=== PATIENT | female | born 1940 | race Caucasian/White ===

== ENCOUNTER → 2016-06-20 | Outpatient (CLI) | payer BC ==
[~2016-06-20] MED LIST: AMLO-110 PO; ASPI81TA28 PO; ATEN-173 PO; CHOL20007 PO; CHOLESTEROL; CHRO200T3 PO; CYAN500T PO; DOCU100C31 PO; LEVO100T7 PO; LISI-794 PO; LUTE20TA PO; NICO14DI9 TOP; OMEG10007 PO; POTA99TA PO; SIMV10TA2 PO; SYNUNK; TNRUNK; [UNRECOGNIZED DRUG - CODE] PO
--- NOTE | 2016-06-20 14:21 | EXERCISE STRESS ECHO ---
*NOTICE TO RECEIVING CONSTITUTION PARTY AGENCY This information is strictly Confidential and protected under [place] law. [place] law prohibits you from making any further disclosure of this information unless further disclosure is expressly permitted by the written consent of the person to whom it pertains or is authorized by law. A general authorization for the release of medical or other information is not sufficient for this purpose. Hospital accepts no responsibility if the information is made available to any other person, INCLUDING THE PATIENT. Interpretation Summary * Name: ARNULFO FERRARA Study Date: 06/20/2016 10:11 AM BP: 186/89 mmHg * Patient Location: [facility], [place] HR: 51 * : 1940 (M/d/yyyy) Gender: Female Height: 68 in * Age: 76 yrs Ethnicity: [place] Weight: 165 lb * Ordering Physician: Breezy Rich * Referring Physician: Breezy Rich * Performed By: Gisell Crawford RCS * * Reason For Study: Chest Pain * BSA: 1.9 m2 * The ECG ST depressions post exercise are diagnostic of ischemia. * No segmental walll motion abnormalities post stress. No significant change in overall LV systolic function post exercise comapared to rest. * The echo portion of the test is non diagnostic for ischemia because of failure to attain adequate heart rate. * Normal resting biventricular systolic function. * MiId mitral and tricuspid regurgitation. * Mild concentric left ventricular hypertrophy. * Mildly elevated estimated RV systolic pressure. * Normal respiratory variation in IVC diameter consistent with normal central venous pressure. * Could consider dobutamine stress echo or Lexiscan stress nuclear study to further evaluate for myocardial ischemia. * Suboptimal stress test due to inadequate maximum heart rate. * -- Conclusions -- * Aortic valve sclerosis mild, without significant aortic valvular stenosis. Procedure Details * ECHOEX, CPT #[id number] * ECHO COLOR FLOW, CPT #[id number] * ECHO DOPPLER, CPT #[id number] Left Ventricle * The left ventricle is normal in size. * There is mild concentric left ventricular hypertrophy. * Ejection Fraction = 65-70%. * The left ventricular wall motion is normal at rest. * No regional wall motion abnormalities noted. * Following exercise to 78% MPHR the LV wall motion remained normal. There was no significant increase in the LV ejection fraction post exercise. Atria * The left atrial size is normal. * Right atrial size is normal. Mitral Valve * The mitral valve is normal. * There is no mitral valve stenosis. * There is mild mitral regurgitation. Tricuspid Valve * The tricuspid valve is not well visualized, but is grossly normal. * There is no tricuspid stenosis. * There is mild tricuspid regurgitation. * Right ventricular systolic pressure is elevated at 40-50mmHg. Aortic Valve * The aortic valve is trileaflet. * The aortic valve opens well. * Aortic valve sclerosis mild, without significant aortic valvular stenosis. * Aortic stenosis is absent. * No aortic regurgitation is present. Pulmonic Valve * The pulmonic valve is not well seen, but is grossly normal. * There is no pulmonic valvular regurgitation. Great Vessels * The aortic root is normal size. Pericardium * There is no pericardial effusion. Stress Parameters * Baseline ECG with sinus bradycardia, biphasic to shallow T wave inversions inferolaterally. * 2-[address] depression in the inferior leads. 1-[address] depression V5,V6. * Rest heart rate was '51' BPM. * Rest blood pressure was '186/89' * Maximum heart rate achieved was 114 bpm. * Maximum heart rate was 78 % of maximum age-predicted heart rate. * Maximum blood pressure was '212/80' * Total exercise time was '5:59' * Maximum exercise MET level achieved was '7.' METS * Maximum treadmill speed was '2.5' miles per hour. * Maximum treadmill elevation was '12'% grade. * Exercise was terminated due to 'fatigue' * No chest pain. MMode 2D Measurements and Calculations IVSd 1.2 cm IVSs 1.5 cm LVIDd 4.6 cm LVIDs 2.8 cm LVPWd 1.2 cm LVPWs 1.5 cm IVS/LVPW 0.98 FS 38.7 % EDV(Teich) 95.4 ml ESV(Teich) 29.5 ml EF(Teich) 69.1 % EDV(cubed) 94.9 ml ESV(cubed) 21.9 ml EF(cubed) 76.9 % % IVS thick 27.1 % % LVPW thick 29.8 % LV mass(C)d 195.5 grams LV mass(C)dI 103.8 grams/m\S\2 LV mass(C)s 145.4 grams LV mass(C)sI 77.2 grams/m\S\2 CO(Teich) 3.4 l/min CI(Teich) 1.8 l/min/m\S\2 SV(Teich) 65.9 ml SI(Teich) 35.0 ml/m\S\2 CO(cubed) 3.8 l/min CI(cubed) 2.0 l/min/m\S\2 SV(cubed) 73.0 ml SI(cubed) 38.8 ml/m\S\2 Ao root diam 3.2 cm Ao root area 7.8 cm\S\2 ACS 1.7 cm LA dimension 3.7 cm LA/Ao 1.2 LVAd ap4 26.9 cm\S\2 LVLd ap4 7.2 cm EDV(MOD-sp4) 83.0 ml LVAs ap4 10.8 cm\S\2 LVLs ap4 5.4 cm ESV(MOD-sp4) 19.0 ml EF(MOD-sp4) 77.1 % LVAd ap2 30.7 cm\S\2 LVLd ap2 8.7 cm EDV(MOD-sp2) 93.0 ml LVAs ap2 15.3 cm\S\2 LVLs ap2 6.6 cm ESV(MOD-sp2) 32.0 ml EF(MOD-sp2) 65.6 % CO(MOD-sp4) 3.3 l/min CI(MOD-sp4) 1.8 l/min/m\S\2 SV(MOD-sp4) 64.0 ml SI(MOD-sp4) 34.0 ml/m\S\2 CO(MOD-sp2) 3.2 l/min CI(MOD-sp2) 1.7 l/min/m\S\2 SV(MOD-sp2) 61.0 ml SI(MOD-sp2) 32.4 ml/m\S\2 Doppler Measurements and Calculations MV E max anahy 85.2 cm/sec MV A max anahy 63.2 cm/sec MV E/A 1.3 MV P1/2t max anahy 98.0 cm/sec MV P1/2t 70.1 msec MVA(P1/2t) 3.1 cm\S\2 MV dec slope 409.1 cm/sec\S\2 MV dec time 0.23 sec Ao V2 max 145.4 cm/sec Ao max PG 8.5 mmHg Ao max PG (full) 4.8 mmHg LV V1 max PG 3.6 mmHg LV V1 max 95.2 cm/sec PA V2 max 84.3 cm/sec PA max PG 2.8 mmHg PI max anahy 146.8 cm/sec PI max PG 8.6 mmHg PI dec slope 44.7 cm/sec\S\2 PI P1/2t 962.9 msec TR max anahy 338.0 cm/sec
== END | disposition home or self-care (01) ==
LOC: C.CPL 09:21
PROVIDERS: ATTEND Internal Medicine Critical Care Medicine
DX: R07.9 Chest pain, unspecified (principal); I35.8 Other nonrheumatic aortic valve disorders

== ENCOUNTER → 2016-07-17 | Outpatient (CLI) | payer BC ==
[~2016-07-17] MED LIST changes: -AMLO-110 PO; -ASPI81TA28 PO; -ATEN-173 PO; +ATROPINE SULFATE 0.1 MG/ML 5ML SYR ONE; -CHOL20007 PO; -CHRO200T3 PO; -CYAN500T PO; +DOBUTamine HCL 12.5 MG/ML 20 ML VIAL ONE; -DOCU100C31 PO; -LEVO100T7 PO; -LISI-794 PO; -LUTE20TA PO; +METOPROLOL TARTRATE 1 MG/ML VIAL ONE; -NICO14DI9 TOP; -OMEG10007 PO; +PERFLUTREN LIPID MICROSPHERE (DEFINITY) IV ONE; -POTA99TA PO; -SIMV10TA2 PO
--- NOTE | 2016-07-17 18:06 | DOBUTAMINE ECHO ---
*NOTICE TO RECEIVING GREEN PARTY AGENCY This information is strictly Confidential and protected under [place] law. [place] law prohibits you from making any further disclosure of this information unless further disclosure is expressly permitted by the written consent of the person to whom it pertains or is authorized by law. A general authorization for the release of medical or other information is not sufficient for this purpose. Hospital accepts no responsibility if the information is made available to any other person, INCLUDING THE PATIENT. Interpretation Summary * Name: ARNULFO FERRARA Study Date: 07/17/2016 10:00 AM BP: 156/77 mmHg * Patient Location: [facility] HR: 56 * : 1940 (M/d/yyyy) Gender: Female Height: 66 in * Age: 76 yrs Ethnicity: [place] Weight: 148 lb * Ordering Physician: Breezy Rich * Referring: Physician: Breezy Rich * Performed By: Kelly Aguilar * * Reason For Study: CHEST PAIN * BSA: 1.8 m2 * -- Conclusions -- * 1. Negative dobutamine stress echo for ischemia at 93% MPHR. * 2. Negative dobutamine stress ECG for ischemia. * 3. Normal resting LV size and function. Mild concentric LVH. For full details of resting function see echo report from 06/20/2016 Procedure Details * A contrast injection of Definity was performed to improve assessment of LV function. * Contrast was injected into an intravenous site in the right arm. * One vial of Definity ultrasound contrast was diluted in normal saline to a total volume of 10 ml. A total of '5' ml of solution was administered during imaging. * Lot # [id number] of Definity utilized for procedure. * Expiration date 05/17. * The attending nurse who injected the contrast agent was FERN HANKINS RN. Left Ventricular Findings with Stress * This was essentially a normal study. Left Ventricle * The left ventricle is grossly normal size. * There is mild concentric left ventricular hypertrophy. * Ejection Fraction = 60-65%. * The left ventricular ejection fraction increases normally with stress. The left ventricular end-systolic cavity size reduces post-stress (normal response). The left ventricular wall motion with stress is normal. * The left ventricular wall motion is normal at rest. * No regional wall motion abnormalities noted. Stress Parameters * Normal baseline electrocardiogram. * Stress ECG: No ST changes. No arrhythmias. * No arrhythmia were noted with stress. * Rest heart rate was '56' BPM. * Rest blood pressure was '156/77' * Maximum heart rate achieved was 136 bpm. * Maximum heart rate was 93 % of maximum age-predicted heart rate. * Maximum blood pressure was '195/63' * Total exercise time was '12:00' * Maximum Dobutamine infusion rate was '40' mcg/kg/min. * A total of 0.25 mg of intravenous Atropine was used to supplement Dobutamine for heart rate response. * Dobutamine infusion was terminated due to achieving target heart rate * A total of 5 mg of IV Metoprolol was administered to reverse Dobutamine-induced tachycardia. * The patient did not exhibit any symptoms during drug infusion. * Normal blood pressure response to exercise. Left Ventricular Findings with Stress * The study was diagnostic quality.
--- NOTE | 2016-07-23 12:40 | CODING QUERY MEDICAL NECESSITY ---
SUPPORTING DIAGNOSIS NEEDED A supporting diagnosis is required for the test/procedure performed on this patient in order for us to be reimbursed by the patient's insurance. Please provide a supporting diagnosis for the following test/procedure listed below next to the test name along with your signature. *If there is no additional diagnosis for this patient that would support the following test/procedure please document that below next to the test/procedure. Test(s)/Procedure(s) that require a supporting diagnosis: * STRESS ECHO DIAGNOSIS: * DOS: 07/17/16 Provider Signature: Date: Thank you Sonia Munguia Health Information Management Once completed, please kindly fax back to [phone] For questions please call [phone]
== END | disposition home or self-care (01) ==
LOC: C.CPL 09:28
PROVIDERS: ATTEND Internal Medicine Critical Care Medicine
DX: R07.89 Other chest pain (principal)

== ENCOUNTER → 2016-11-07 | Outpatient (CLI) | payer BC ==
[~2016-11-07] MED LIST changes: -ATROPINE SULFATE 0.1 MG/ML 5ML SYR ONE; -DOBUTamine HCL 12.5 MG/ML 20 ML VIAL ONE; -METOPROLOL TARTRATE 1 MG/ML VIAL ONE; -PERFLUTREN LIPID MICROSPHERE (DEFINITY) IV ONE
--- NOTE | 2016-11-07 12:46 | DIAGNOSTIC IMAGING REPORT ---
BILATERAL CAROTID DOPPLER STUDY HISTORY: Atherosclerotic narrowing I65.29 Occlusion and stenosis of carotid artery COMPARISON: 10/19/2015 TECHNIQUE: Real-time, grayscale, and color Doppler sonography of the carotid arteries was performed. Imaging reviewed in the transverse and longitudinal planes. All measurements were calculated based on NASCET criteria. FINDINGS: Antegrade flow is seen in the bilateral vertebral arteries. The brachial pressures are hemodynamically similar. Significant plaque formation bilaterally The peak systolic velocity within the right ICA is 56. The right systolic ratio is not obtainable The peak systolic velocity within the left ICA is 121. The left systolic ratio is not obtainable IMPRESSION: 30-40% narrowing left internal carotid artery. Moderate improvement compared to the prior exam. No significant right carotid stenosis Electronically signed by: Priyank William M.D. 11/07/2016 12:44 PM Dictated Date/Time: 11/07/2016 12:41 PM
== END | disposition home or self-care (01) ==
LOC: C.ULTR 12:03
PROVIDERS: ATTEND Surgery
DX: I65.22 Occlusion and stenosis of left carotid artery (principal)

== ENCOUNTER → 2016-11-23 | Outpatient (CLI) | payer BC ==
[2016-11-23 09:18] LABS: BASO % 0.4 %; BASO ABS # 0.03 K/uL (0-0.2); COMPLETE YES; EOS % 2.4 %; HEMATOCRIT 42.1 % (37-47); IG% 0.1 %; LYMPH % 23.3 %; LYMPH ABS # 1.66 K/uL (1.2-3.4); MEAN CELL VOLUME 93.3 fL (80-100); MEAN CORPUSCULAR HEMOGLOBIN 32.2 pg (25-34); MEAN CORPUSCULAR HGB CONC 34.4 g/dl (32-36); MEAN PLATELET VOLUME 11.1 fL (7.4-10.4); MONO % 6.6 %; NEUT % 67.2 %; PLATELET COUNT 253 K/uL (130-400); RED BLOOD COUNT 4.51 M/uL (4.2-5.4); WHITE BLOOD COUNT 7.11 K/uL (4.8-10.8)
[2016-11-23 09:27] LABS: ALT/SGPT 17 U/L (12-78); BLOOD UREA NITROGEN 15 mg/dl (7-18); BUN/CREATININE RATIO 17.5 (10-20); CARBON DIOXIDE 26 mmol/L (21-32); CHLORIDE 111 mmol/L (98-107); CREATININE 0.87 mg/dl (0.60-1.20); GLUCOSE 113 mg/dl (70-99); POTASSIUM 3.6 mmol/L (3.5-5.1); SODIUM 144 mmol/L (136-145)
[2016-11-23 09:38] LABS: ALB/GLOB RATIO 0.9 (0.9-2); ALKALINE PHOSPHATASE 72 U/L (45-117); AST/SGOT 14 U/L (15-37)
== END | disposition home or self-care (01) ==
LOC: C.LABVPSUW 09:08
PROVIDERS: ATTEND Internal Medicine Critical Care Medicine
DX: R53.83 Other fatigue (principal); E03.9 Hypothyroidism, unspecified; I10 Essential (primary) hypertension

== ENCOUNTER → 2017-06-27 | Day surgery (SDC) | payer BC ==
[2017-06-20 13:50] VITALS: Ht 172.7 cm; Wt 76.0 kg
--- NOTE | 2017-06-26 09:31 | History and Physical: Surg Cnt ---
History & Physical Date Jun 26, 2017. Chief Complaint hoarseness History of Present Illness The patient is a 77 year old female with complaints of left false vocal cord polyp Additional History Hepatic Disease: No Endocrine Disorder: No Kidney Disease: No Hypertension: No Heart Disease: No Bleeding Tendencies: No Infectious Diseases: No Allergies Coded Allergies: Hydrochlorothiazide (Verified Allergy, Unknown, RASH, 06/20/17) Nickel (Verified Allergy, Unknown, ITCHING AND REDNESS TO SKIN, 06/20/17) Penicillins (Verified Allergy, Unknown, YEAST INFECTION, 06/20/17) Home Medications Scheduled Amlodipine (Norvasc), 5 MG PO QAM Aspirin (Aspirin Ec), 81 MG PO QAM Atenolol (Tenormin), 2 TABS PO QAM Cholecalciferol (Vitamin D3), 1 TAB PO QAM Chromium (Chromium), 1 TAB PO DAILY Cyanocobalamin (Vitamin B-12), 500 MCG PO DAILY Docusate Sodium (Docusate Sodium), 2 CAP PO QPM Fish Oil ([place]-3), 1 CAP PO DAILY Levothyroxine Sodium (Levothyroxine Sodium), 1 TAB PO QAM Lisinopril (Zestril), 40 MG PO QAM Lutein (Lutein), 1 TAB PO DAILY Nicotine (Nicotine), 1 PATCH TOP DAILY Potassium (Potassium), 1 TAB PO DAILY Simvastatin (Zocor), 10 MG PO QAM Physical Examination Skin: warm/dry, no rash Eyes: normal inspection, EOMI, sclerae normal ENT: normal ENT inspection, pharynx normal Head: normocephalic, atraumatic Neck: supple, no adenopathy, trachea midline Respiratory/Chest: lungs clear, normal breath sounds, no respiratory distress Cardiovascular: regular rate, rhythm, no edema, no murmur Abdomen / GI: normal bowel sounds, non tender Back: normal inspection Extremities: normal inspection, normal range of motion Neurologic/Psych: no motor/sensory deficits, alert, normal reflexes, oriented x 3 Diagnosis left false vocal cord polyp Plan of Treatment direct laryngoscopy, micro excision left false vocal cord polyp
[~2017-06-27] VITALS: Ht 172.7 cm; Wt 76.0 kg
[~2017-06-27] MED LIST changes: +AMLO-110 PO; +ASPI81TA28 PO; +ATEN-173 PO; +ATROPINE SULFATE 0.1 MG/ML 5ML SYR IV PRN; +CHOL20007 PO; -CHOLESTEROL; +CHRO200T3 PO; +CYAN500T PO; +DOCU100C31 PO; +EpHEDrine SULFATE INJ 50 MG/ML AMP IV PRN; +EpINEphrine HCL INJ 1 MG/ML 5ML SYRINGE ONE; +FENTANYL CITRATE INJ 50 MCG/1 ML 2 ML VIAL IV PRN; +FENTANYL CITRATE INJ 50 MCG/1 ML 2 ML VIAL ONE; +LEVO100T7 PO; +LIDOCAINE HCL 2% 2 ML VIAL (20MG/ML) ONE; +LISI-794 PO; +LUTE20TA PO; +MIDAZOLAM HCL 1 MG/ML 2ML VIAL ONE; +NICO14DI9 TOP; +OMEG10007 PO; +ONDANSETRON INJ 2 MG/ML 2 ML VIAL IV PRN; +ONDANSETRON INJ 2 MG/ML 2 ML VIAL ONE; +OXYCODONE/ACETAMINOPHEN 5-325 TAB PO PRN; +POTA99TA PO; +PROPOFOL IV EMULSION 10 MG/ML 20 ML VIAL IV ONE; +SIMV10TA2 PO; +SODIUM CHLORIDE 0.9% 1000ML 1,000 ML IV SCH; +SUCCINYLCHOLINE CHLORIDE 20 MG/ML 10 ML VIAL IV ONE; -SYNUNK; -TNRUNK; -[UNRECOGNIZED DRUG - CODE] PO
--- NOTE | 2017-06-27 06:53 | History & Physical Bridge Note ---
H&P Re-Evaluation Bridge Note: I have examined the patient, reviewed the History & Physical and in the interval since the performance of the History & Physical I have noted the following changes of clinical significance: No changes noted
[2017-06-27] MEDS: LACTATED RINGER'S 1000ML 1,000 ML IV SCH ×2 (08:23→11:16)
--- NOTE | 2017-06-27 10:00 | Discharge Instructions-SurgCtr ---
Discharge Instructions Date of Service Jun 27, 2017. Visit Reason for Visit: Left False Vocal Cord Polyp Discharge Discharge Diagnosis / Problem: same Discharge Goals Goal(s): Diagnostic testing Medications Stopped Medications Name(s): Pt. was told not to take Lisinopril this a.m.. Activity Recommendations Activity Limitations: resume your previous activity Anesthesia . Post Anesthesia Instructions: If you have had General Anesthesia or IV Sedation: * Do not drive today. * Resume driving when surgeon permits. * Do not make important decisions or sign legal documents today. * Call surgeon for: 1. Temperature elevations greater than 101 degrees F. 2. Uncontrollable pain. 3. Excessive bleeding. 4. Persistent nausea and vomiting. 5. Medication intolerance (nausea, vomiting or rash). * For nausea and vomiting use only clear liquids such as: tea, soda, bouillon until nausea subsides, then gradually increase diet as tolerated. * If you have any concerns or questions, call your surgeon's office. If physician is unavailable and it is an emergency, call 911 or go to the nearest emergency room. . Instructions / Follow-Up Instructions / Follow-Up rest voice for one week, no loud talking or shouting Diet Recommendations Home Diet: no limitations Procedures Procedures Performed: Direct Laryngoscopy, Micro Excision Left False Vocal Cord Polyp Pending Studies Studies pending at discharge: no Medical Emergencies . Who to Call and When: Medical Emergencies: If at any time you feel your situation is an emergency, please call 911 immediately. . Non-Emergent Contact Non-Emergency issues call your: Primary Care Provider . . "Provider Documentation" section prepared by Rosa Lorenz. Phyllis PA Drug Monitoring Program Search Results: no issues identified
--- NOTE | 2017-06-27 11:27 | Anesthesia Progress Nt - [facility] ---
Anesthesia Post Op Note Date & Time Jun 27, 2017 at 11:27 Vital Signs Pain Intensity: 3 Vital Signs Past 12 Hours Date Time Temp Pulse Resp B/P (MAP) Pulse Ox O2 Delivery O2 Flow Rate FiO2 06/27/17 11:17 49 10 96 06/27/17 11:17 50 10 06/27/17 11:16 51 9 93 06/27/17 11:16 51 9 06/27/17 11:15 144/64 06/27/17 11:15 37.0 49 12 144/64 96 Room Air 06/27/17 11:11 52 12 149/61 96 06/27/17 11:11 53 12 06/27/17 11:06 49 11 06/27/17 11:06 48 11 96 06/27/17 11:05 151/67 06/27/17 11:01 56 13 95 06/27/17 11:01 55 13 06/27/17 11:00 159/67 06/27/17 10:56 49 11 06/27/17 10:56 48 11 161/78 98 06/27/17 10:51 50 15 98 06/27/17 10:51 49 15 06/27/17 10:50 158/69 06/27/17 10:46 51 9 96 06/27/17 10:46 50 9 06/27/17 10:45 149/64 06/27/17 10:44 49 10 06/27/17 10:44 50 10 97 06/27/17 10:40 146/66 06/27/17 10:39 49 10 06/27/17 10:39 50 10 100 06/27/17 10:35 156/67 06/27/17 10:34 52 10 06/27/17 10:34 51 10 100 06/27/17 10:30 137/63 06/27/17 10:29 50 10 06/27/17 10:29 50 10 99 06/27/17 10:25 139/61 06/27/17 10:24 54 10 99 06/27/17 10:24 54 10 06/27/17 10:20 153/72 06/27/17 10:19 58 11 06/27/17 10:19 59 11 99 06/27/17 10:15 154/74 06/27/17 10:14 60 162/72 97 06/27/17 10:14 36.4 59 12 162/72 99 Room Air 06/27/17 10:14 60 06/27/17 07:48 36.5 46 16 146/82 (103) 96 Room Air Notes Mental Status: alert / awake / arousable, participated in evaluation Pt Amnestic to Procedure: Yes Nausea / Vomiting: adequately controlled Pain: adequately controlled Airway Patency, RR, SpO2: stable & adequate BP & HR: stable & adequate Hydration State: stable & adequate Anesthetic Complications: no major complications apparent
--- NOTE | 2017-06-27 11:52 | [facility] Post Operative Brief Note ---
Immediate Operative Summary Operative Date Jun 27, 2017. Pre-Operative Diagnosis Left False Vocal Cord Polyp Post-Operative Diagnosis Same Procedure(s) Performed Direct Laryngoscopy, Micro Excision Left False Vocal Cord Polyp Surgeon Dr. Lorenz Hearing Aid Repair Technician Surgeon(s) None Estimated Blood Loss 3 ml Findings Polyps left vocal cord and cyst left arytenoid Specimens A. Left vocal cord polyp B. Left false vocal cord cyst Anesthesia Gen. endotracheal Complication(s) None Disposition Recovery Room / PACU
--- NOTE | 2017-06-27 11:55 | [facility] Operative Report ---
Operative Report Operative Date Jun 27, 2017. Pre-Operative Diagnosis Left False Vocal Cord Polyp Post-Operative Diagnosis Same Procedure(s) Performed Direct Laryngoscopy, Micro Excision Left False Vocal Cord Polyp Surgeon Dr. Lorenz Public Health Epidemiologist Surgeon(s) None Estimated Blood Loss 3 ml Findings As noted below in pathology specimens Specimens A. Left vocal cord polyp B. Left false vocal cord cyst Complication(s) None Disposition Recovery Room / PACU Indications 77-year-old lady with persistent hoarseness informed body sensation in the throat Description of Procedure The patient was brought to the operating room and placed in the supine position. General endotracheal anesthesia was induced. The Dedo laryngoscope was used to visualize the larynx. The epiglottis was sharp the vallecula and piriform sinus areas were normal. Endolarynx was inspected suspension and microlaryngoscopy was performed. There was polyp formation of the left false vocal cord in the ventricle just above the true vocal cord. This was excised using the up-biting cup forceps and up-biting scissors. There was also a right millimeters cyst above the false vocal cord at the left arytenoid area. This was excised using the straight cup forceps and the straight and up-biting scissors. Milky fluid was expressed. Both specimens were sent for pathology. Hemostasis was obtained using cottonoids pledgets with topical epinephrine. The patient tolerated procedure well and was taken to the recovery area in satisfactory condition. I attest to the content of the Intraoperative Record and any orders documented therein. Any exceptions are noted below.
[2017-06-27 12:03] VITALS: BP 153/75; PULSE 53; O2SAT 95
== END | disposition home or self-care (01) ==
LOC: X.SURG 07:22
PROVIDERS: ATTEND Otolaryngology
DX: J38.1 Polyp of vocal cord and larynx (principal); J38.3 Other diseases of vocal cords; I10 Essential (primary) hypertension; E78.5 Hyperlipidemia, unspecified; J44.9 Chronic obstructive pulmonary disease, unspecified; I49.9 Cardiac arrhythmia, unspecified; E03.8 Other specified hypothyroidism; Z87.891 Personal history of nicotine dependence; Z79.82 Long term (current) use of aspirin; Z79.899 Other long term (current) drug therapy

== ENCOUNTER → 2017-07-08 | Outpatient (CLI) | payer BC ==
[~2017-07-08] MED LIST changes: -ATROPINE SULFATE 0.1 MG/ML 5ML SYR IV PRN; -EpHEDrine SULFATE INJ 50 MG/ML AMP IV PRN; -EpINEphrine HCL INJ 1 MG/ML 5ML SYRINGE ONE; -FENTANYL CITRATE INJ 50 MCG/1 ML 2 ML VIAL IV PRN; -FENTANYL CITRATE INJ 50 MCG/1 ML 2 ML VIAL ONE; -LIDOCAINE HCL 2% 2 ML VIAL (20MG/ML) ONE; -MIDAZOLAM HCL 1 MG/ML 2ML VIAL ONE; -ONDANSETRON INJ 2 MG/ML 2 ML VIAL IV PRN; -ONDANSETRON INJ 2 MG/ML 2 ML VIAL ONE; -OXYCODONE/ACETAMINOPHEN 5-325 TAB PO PRN; -PROPOFOL IV EMULSION 10 MG/ML 20 ML VIAL IV ONE; -SODIUM CHLORIDE 0.9% 1000ML 1,000 ML IV SCH; -SUCCINYLCHOLINE CHLORIDE 20 MG/ML 10 ML VIAL IV ONE
== END | disposition home or self-care (01) ==
LOC: C.LABVPSUW 09:16
PROVIDERS: ATTEND Internal Medicine Critical Care Medicine
DX: E03.9 Hypothyroidism, unspecified (principal)

== ENCOUNTER → 2017-11-07 | Outpatient (CLI) | payer BC ==
[2017-11-07 10:22] LABS: BASO % 0.5 %; BASO ABS # 0.03 K/uL (0-0.2); EOS ABS # 0.12 K/uL (0-0.5); HEMATOCRIT 41.9 % (37-47); HEMOGLOBIN 14.5 g/dL (12.0-16.0); IG# 0.01 K/uL (0.00-0.02); LYMPH ABS # 1.53 K/uL (1.2-3.4); MEAN CELL VOLUME 91.7 fL (80-100); MEAN CORPUSCULAR HEMOGLOBIN 31.7 pg (25-34); MEAN CORPUSCULAR HGB CONC 34.6 g/dl (32-36); MONO % 5.4 %; MONO ABS # 0.33 K/uL (0.11-0.59); NEUT % 66.9 %; NEUT ABS # 4.11 K/uL (1.4-6.5); PLATELET COUNT 229 K/uL (130-400); RED CELL DISTRIBUTION WIDTH CV 13.8 % (11.5-14.5); RED CELL DISTRIBUTION WIDTH SD 45.5 fL (36.4-46.3); WHITE BLOOD COUNT 6.13 K/uL (4.8-10.8)
[2017-11-07 10:57] LABS: ALBUMIN 3.6 gm/dl (3.4-5.0); ALKALINE PHOSPHATASE 81 U/L (45-117); ALT/SGPT 27 U/L (12-78); AST/SGOT 20 U/L (15-37); BLOOD UREA NITROGEN 20 mg/dl (7-18); CALCIUM 8.4 mg/dl (8.5-10.1); CARBON DIOXIDE 20 mmol/L (21-32); CREATININE 0.99 mg/dl (0.60-1.20); GLUCOSE 115 mg/dl (70-99); POTASSIUM 3.9 mmol/L (3.5-5.1); SODIUM 141 mmol/L (136-145); TOTAL PROTEIN 7.4 gm/dl (6.4-8.2)
== END | disposition home or self-care (01) ==
LOC: C.LABVPSUW 09:48
PROVIDERS: ATTEND Internal Medicine Critical Care Medicine
DX: R10.9 Unspecified abdominal pain (principal); E03.9 Hypothyroidism, unspecified; D64.9 Anemia, unspecified

== ENCOUNTER 2020-05-13 18:02 | Inpatient (IN) ==
[2020-05-13] MEDS ORDERED: ASPIRIN CHEW 324 MG PO STA (18:21)
[2020-05-13] MEDS ORDERED: NITROGLYCERIN 2% OINTMENT 30GM TUBE EXT STA (18:21)
--- NOTE | 2020-05-13 18:41 | XRay Report ---
SINGLE VIEW CHEST CLINICAL HISTORY: Atypical chest pain. FINDINGS: An AP, portable, upright chest radiograph is compared to study dated 10/05/2018. Correlation is made with chest CT dated 12/17/2017. The examination is degraded by portable technique and apical l ordotic positioning. The heart is mildly enlarged. The pulmonary vasculature is noncongested. There i s elevation of the right hemidiaphragm and bibasilar atelectasis. Emphysema and chronic interstitial thickening is similar to previous. No airspace consolidation or large pleural effusion is identified. No pneumothorax is seen. The skeletal structures are osteopenic. The bony thorax is grossly intact. IMPRESSION: Mild cardiac enlargement and emphysema with no acute cardiopulmonary abnormality. ACT 112: Negative or not required by law. Electronically signed by: Dejuan Cannon M.D. 05/13/2020 6:40 PM
[2020-05-13 19:17] LABS: Partial Thromboplastin Ratio 0.9; Partial Thromboplastin Time 23.8 Seconds (21.0-31.0); Prothrombin Time 10.6 Seconds (9.0-12.0)
[2020-05-13 19:19] LABS: Basophils # (auto) 0.02 K/uL (0-0.2); Basophils % (auto) 0.2 %; Eosinophils # (auto) 0.09 K/uL (0-0.5); Hematocrit (blood only) 43.8 % (37-47); Hemoglobin 14.2 g/dL (12.0-16.0); Immature Granulocytes # (auto) 0.01 K/uL (0.00-0.02); Immature Granulocytes % (auto) 0.1 %; Lymphocytes # (auto) 1.67 K/uL (1.2-3.4); Lymphocytes % (auto) 19.4 %; Mean Corpuscular Hemoglobin 29.8 pg (25-34); Mean Corpuscular Hgb Conc 32.4 g/dL (32-36); Mean Corpuscular Volume 91.8 fL (80-100); Mean Platelet Volume 11.8 fL (7.4-10.4); Monocytes # (auto) 0.45 K/uL (0.11-0.59); Monocytes % (auto) 5.2 %; Neutrophils # (auto) 6.35 K/uL (1.4-6.5); Neutrophils % (auto) 74.1 %; Platelet Count 269 K/uL (130-400); RDW Coefficient of Variation 14.4 % (11.5-14.5); RDW Standard Deviation 48.9 fL (36.4-46.3); Red Blood Count 4.77 M/uL (4.2-5.4); White Blood Count 8.59 K/uL (4.8-10.8)
[2020-05-13 19:26] LABS: Albumin Level 3.6 gm/dl (3.4-5.0); BUN Creatinine Ratio 20.6 (10-20); Calcium 8.7 mg/dl (8.5-10.1); Creatinine Clr Calc Pharmacy 42.6 ml/min; Est GFR (African American) 49.3; Est GFR (Non-African American) 42.5; Potassium 3.5 mmol/L (3.5-5.1)
[2020-05-13 19:35] LABS: Albumin Globulin Ratio 0.9 (0.9-2); Bilirubin,Total 0.2 mg/dl (0.2-1); Globulin 3.8 gm/dl (2.5-4.0); Total Protein 7.4 gm/dl (6.4-8.2); Troponin I 0.36 ng/ml (0-0.045)
[2020-05-13] MEDS ORDERED: Heparin IV Low Dose WITH Bolus IV STA (19:36)
[2020-05-13] MEDS ORDERED: HEPARIN SODIUM/DEXTROSE 25,000 UNITS/500 ML BAG IV SCH (19:45)
[2020-05-13] MEDS ORDERED: HEPARIN SOD (PORCINE) 1000 UNIT/ML 10 ML VIAL ONE (20:04)
[2020-05-13] MEDS ORDERED: NITROGLYCERIN 2% OINTMENT 30GM TUBE ONE (21:10)
[2020-05-13] MEDS ORDERED: ONDANSETRON INJ 2 MG/ML 2 ML VIAL IV PRN (21:53)
[2020-05-13] MEDS: ACETAMINOPHEN 325 MG TAB PO PRN (23:03)
[2020-05-13] MEDS: ATENOLOL 25 MG TABLET PO SCH (23:04)
[2020-05-13] MEDS: DOCUSATE SODIUM 100 MG CAP PO SCH (23:04)
--- NOTE | 2020-05-14 00:23 | History & Physical Report ---
Date of Service May 13, 2020 Assessment & Plan (1) Non-STEMI (non-ST elevated myocardial infarction): Non-STEMI/hypertension- The patient will be admitted to telemetry for serial cardiac enzymes, serial EKG's, cardiac rhythm monitoring and a 2-D echocardiogram with Dopplers. Troponin 0.360 upon admission. Continue heparin drip low-dose with bolus begun in ED. Increase Nitropaste from 1/2 to 1 inch to anterior chest wall every 6 hours Aspirin 81 mg daily Continue amlodipine, atenolol and losartan Consult cardiology Present on Admission?: Yes (2) HTN (hypertension): See above Present on Admission?: Yes (3) Hypothyroidism: Continue levothyroxine 125 mcg daily Present on Admission?: Yes (4) GERD (gastroesophageal reflux disease): Continue pantoprazole 40 mg daily Present on Admission?: Yes History of Present Illness Chief Complaint: The patient presents to the emergency department with an intermittent harsh, nonproductive cough over the past week, and today developed severe substernal chest discomfort. Primary Care Provider: Breezy Rich MD The patient is a 80-year-old female with a past medical history including lumbar stenosis with neurogenic claudication, hypertension, B12 deficiency, constipation, peripheral neuropathy, hypothyroidism, GERD and arthritis. In the emergency department she had a COVID-19 test which was negative, and chest x-ray consistent with COPD. She did have an EKG which showed ST/T wave changes in the lateral chest leads and limb leads. Her troponin was elevated at 0.360. In the emergency department she was started on a heparin drip low-dose with bolus, Nitropaste 1/2 inch to the anterior chest wall, and was given aspirin 324 mg. Allergies Allergy/AdvReac Type Severity Reaction Status Date / Time hydrochlorothiazide Allergy Mild RASH Verified 05/13/20 20:20 nickel Allergy Mild ITCHING Verified 05/13/20 20:21 AND REDNESS TO SKIN Penicillins Allergy Mild YEAST Verified 05/13/20 20:21 INFECTION Home Medications Medication Instructions Recorded Confirmed Type amlodipine 5 mg PO DAILY 10/05/18 05/13/20 History atenolol 25 mg PO BID 10/05/18 05/13/20 History docusate sodium [Colace] 200 mg PO HS 10/05/18 05/13/20 History levothyroxine 125 mcg PO DAILY 10/05/18 05/13/20 History losartan 50 mg PO DAILY 10/05/18 05/13/20 History ascorbic acid (vitamin C) [Vitamin 1 g PO DAILY 01/15/20 05/13/20 History C] cyanocobalamin (vitamin B-12) 1,000 mcg PO DAILY 01/15/20 05/13/20 History [Vitamin B-12] pantoprazole 40 mg PO DAILY 01/15/20 05/13/20 History turmeric 400 mg PO DAILY 01/15/20 05/13/20 History gabapentin 300 mg PO DAILY 04/22/20 05/13/20 History OXITRIM 1 tab PO BID 05/13/20 05/13/20 History Past Med/Surg History Medical History (Updated 05/14/20 @ 00:20 by Jarret Machado MD) Back problem Emphysema lung GERD (gastroesophageal reflux disease) Hiatal hernia History of tachycardia HTN (hypertension) Hypothyroidism Lumbar stenosis with neurogenic claudication Surgical History H/O foot surgery RT History of appendectomy History of colonoscopy History of endoscopy Hx of Achilles tendon repair LEFT Family History (Updated 04/22/20 @ 09:09 by Malena Guy RN) Other No family history of adverse response to anesthesia Social History Smoking Status: Former smoker Smoking End Date: 2015; Second Hand Exposure: No; Do You Dip or Chew Tobacco: No; Hx Alcohol Use: Yes Alcohol type: wine and hard liquor Hx Substance Use: No Preferred Language: Hungarian Communication Ability: Effective 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 Beliefs That Will Affect Care: None Current Living Situation: Spouse current occupational status: retired Other Information That Helps Us Care for You: No Feels Safe at Home: Yes Safety Concerns: Feels Safe At This Time Assistive Devices: Denture - Upper, Denture - Lower and Glasses Review of Systems Review of Systems: The patient denies palpitations, lower extremity swelling, sore throat, fevers, chills, sweats, nausea, vomiting, diarrhea , constipation, abdominal pain, pelvic pain, blood in urine or stool, dysuria, urinary frequency or urgency, lightheadedness, dizziness, headache, memory loss, loss of consciousness, rash, abnormal bruising or bleeding, imbalance, focal weakness, numbness or tingling in arms or legs, generalized arthralgias or myalgias, back or neck pain, or night sweats. The review of systems is otherwise negative other than for that already noted above, and at least 10 systems have been reviewed. Physical Exam Physical Exam: The patient is awake, alert and oriented 3, well developed and well nourished, normocephalic and atraumatic, lying in bed and in no acute distress. HEENT--PERRL, EOMI, mucous membranes and oropharynx normal. Neck--supple. No JVD. No bruits. Thyroid normal, trachea midline, no adenopathy. Heart--normal S1 and S2. No murmurs, rubs or gallops. Lungs--clear bilaterally, no respiratory distress, no accessory muscle use. Abdomen--normal bowel sounds and soft. Nontender. Nondistended. Obese Extremities--no cyanosis or clubbing. No edema. Dermatologic--normal skin turgor, normal color, no abnormal lymph nodes, no rash. Neurologic--cranial nerves II through XII grossly intact. Rheumatologic--normal range of motion. Psychiatric--normal affect. Results & Data Results & Data ([facility]) Vital Signs (Past 12 Hours) Vital Signs Temp Pulse Pulse Resp BP BP Pulse Ox 05/13/20 20:00 67 20 154/70 H 94 05/13/20 19:30 69 23 158/83 H 93 05/13/20 19:12 94 05/13/20 19:10 74 18 170/79 H 94 05/13/20 18:05 98.6 F 78 22 215/89 H 97 Laboratory Results Laboratory Results WBC 8.59 K/uL (4.8-10.8) 05/13/20 18:48 RBC 4.77 M/uL (4.2-5.4) 05/13/20 18:48 Hgb 14.2 g/dL (12.0-16.0) 05/13/20 18:48 Hct 43.8 % (37-47) 05/13/20 18:48 MCV 91.8 fL (80-100) 05/13/20 18:48 MCH 29.8 pg (25-34) 05/13/20 18:48 MCHC 32.4 g/dL (32-36) 05/13/20 18:48 RDW Std Deviation 48.9 fL (36.4-46.3) H 05/13/20 18:48 RDW Coeff of Madelin 14.4 % (11.5-14.5) 05/13/20 18:48 Plt Count 269 K/uL (130-400) 05/13/20 18:48 MPV 11.8 fL (7.4-10.4) H 05/13/20 18:48 Immature Gran % (Auto) 0.1 % 05/13/20 18:48 Neut % (Auto) 74.1 % 05/13/20 18:48 Lymph % (Auto) 19.4 % 05/13/20 18:48 [place] % (Auto) 5.2 % 05/13/20 18:48 Eos % (Auto) 1.0 % 05/13/20 18:48 Baso % (Auto) 0.2 % 05/13/20 18:48 Neut # (Auto) 6.35 K/uL (1.4-6.5) 05/13/20 18:48 Lymph # (Auto) 1.67 K/uL (1.2-3.4) 05/13/20 18:48 [place] # (Auto) 0.45 K/uL (0.11-0.59) 05/13/20 18:48 Eos # (Auto) 0.09 K/uL (0-0.5) 05/13/20 18:48 Baso # (Auto) 0.02 K/uL (0-0.2) 05/13/20 18:48 Immature Gran # (Auto) 0.01 K/uL (0.00-0.02) 05/13/20 18:48 PT 10.6 Seconds (9.0-12.0) 05/13/20 18:48 INR 1.0 (0.9-1.1) 05/13/20 18:48 APTT 23.8 Seconds (21.0-31.0) 05/13/20 18:48 PTT Ratio 0.9 05/13/20 18:48 Sodium 142 mmol/L (136-145) 05/13/20 18:48 Potassium 3.5 mmol/L (3.5-5.1) 05/13/20 18:48 Chloride 114 mmol/L (98-107) H 05/13/20 18:48 Carbon Dioxide 25 mmol/L (21-32) 05/13/20 18:48 Anion Gap 3.0 (3-11) 05/13/20 18:48 BUN 25 mg/dl (7-18) H 05/13/20 18:48 Creatinine 1.21 mg/dl (0.6-1.2) H 05/13/20 18:48 Est Cr Clr Drug Dosing 42.6 ml/min 05/13/20 18:48 Est GFR ( Amer) 49.3 05/13/20 18:48 Est GFR (Non-Af Amer) 42.5 05/13/20 18:48 BUN/Creatinine Ratio 20.6 (10-20) H 05/13/20 18:48 Glucose 176 mg/dl (70-99) H 05/13/20 18:48 Calcium 8.7 mg/dl (8.5-10.1) 05/13/20 18:48 Total Bilirubin 0.2 mg/dl (0.2-1) 05/13/20 18:48 AST 19 U/L (15-37) 05/13/20 18:48 ALT 31 U/L (12-78) 05/13/20 18:48 Alkaline Phosphatase 96 U/L (45-117) 05/13/20 18:48 Troponin I 0.360 ng/ml (0-0.045) H* 05/13/20 18:48 Total Protein 7.4 gm/dl (6.4-8.2) 05/13/20 18:48 Albumin 3.6 gm/dl (3.4-5.0) 05/13/20 18:48 Globulin 3.8 gm/dl (2.5-4.0) 05/13/20 18:48 Albumin/Globulin Ratio 0.9 (0.9-2) 05/13/20 18:48 Lipase 142 U/L (73-393) 05/13/20 18:48 COVID-19 Eval Order Covid19 IDNow [facility] 05/13/20 20:19 SARS-CoV-2, RNA, NAAT NEGATIVE (NEGATIVE) 05/13/20 20:19 Diagnostic Findings [facility], [phone] XRay Report Patient: ARNULFO FERRARA Date: 05/13/20MR#: [id number]: [id number] [id number] ID:[id number]: Date: 1City Zip: [place], [place] [address]Ich: 80Location: EDSex: FRoom/Bed:Att Phy:Diagnosis: CHEST PAIN, SOBPri Phy: Breezy Rich M.D.Service Date: 05/13/20Fa Phy: Breezy Rich M.D.Interpreting Phy: Dejuan Cannon MDAdmit Phy: Ordering Phy: Milena Hernandez M.D. cc: ~ SINGLE VIEW CHEST CLINICAL HISTORY: Atypical chest pain. FINDINGS: An AP, portable, upright chest radiograph is compared to study dated 10/05/2018. Correlation is made with chest CT dated 12/17/2017. The examination is degraded by portable technique and apical lordotic positioning. The heart is mildly enlarged. The pulmonary vasculature is noncongested. There is elevation of the right hemidiaphragm and bibasilar atelectasis. Emphysema and chronic interstitial thickening is similar to previous. No airspace consolidation or large pleural effusion is identified. No pneumothorax is seen. The skeletal structures are osteopenic. The bony thorax is grossly intact. IMPRESSION: Mild cardiac enlargement and emphysema with no acute cardiopulmonary abnormality. ACT 112: Negative or not required by law. Electronically signed by: Dejuan Cannon M.D. 05/13/2020 6:40 PM Dictated: 05/13/201837Transcribed: 05/13/201837 Code Status & VTE Plan Code Status Full code VTE Prophylaxis Plan VTE Prophylaxis will be ordered: Yes PG Care Time/CCT Total # of Minutes Spent Total Time Spent with Patient: Total time spent is greater than 50% in coordination of care (as documented) at patient's floor/unit and/or counseling patient: Coding Level of Care Code 05801 Initial Inpt Care Lvl 3 Diagnoses Non-STEMI (non-ST elevated myocardial infarction) I21.4 HTN (hypertension) I10 Hypothyroidism E03.9 GERD (gastroesophageal reflux disease) K21.9
[2020-05-14] MEDS: GABAPENTIN 300 MG CAP PO SCH ×4 (01:40→20:13)
[2020-05-14] MEDS: ACETAMINOPHEN 325 MG TAB PO PRN (01:41)
[2020-05-14] MEDS: NITROGLYCERIN 2% OINTMENT 30GM TUBE EXT SCH ×3 (02:11→11:40)
--- NOTE | 2020-05-14 02:25 | Emergency Department Note ---
History of Present Illness General Chief complaint: Chest Pain Stated complaint: CHEST PAIN, SOB Source: patient and RN notes reviewed Mode of arrival: ambulatory Limitations: no limitations History of Present Illness Provider complaint: Substernal chest pain, shortness of breath Maximum Pain Intensity: 3 This patient is a 80-year-old female who presents to the emergency department with complaints of substernal chest pressure. She states over the last several days she has noticed pain when walking her dog. She states it feels almost like she is breathing very cold air. She tried to modify her breathing but it did not seem to help. Last night was the first time the patient had pain at rest. She woke up at approximately 2:00 in the morning and had a 1 hour period of pain that was "severe." She states she decided to "wait it out." She sat up at the edge of the bed and rubbed her chest. She denies any significant shortness of breath but did have some nausea. Patient denies any recent fevers, chills, coughing, abdominal pain. She states about a year and a half ago she did have an episode of chest pain that she was hospitalized for. She states this felt different than that episode. Home Medications Medication Instructions Recorded Confirmed Type amlodipine 5 mg PO DAILY 10/05/18 05/13/20 History atenolol 25 mg PO BID 10/05/18 05/13/20 History docusate sodium [Colace] 200 mg PO HS 10/05/18 05/13/20 History levothyroxine 125 mcg PO DAILY 10/05/18 05/13/20 History losartan 50 mg PO DAILY 10/05/18 05/13/20 History ascorbic acid (vitamin C) [Vitamin 1 g PO DAILY 01/15/20 05/13/20 History C] cyanocobalamin (vitamin B-12) 1,000 mcg PO DAILY 01/15/20 05/13/20 History [Vitamin B-12] pantoprazole 40 mg PO DAILY 01/15/20 05/13/20 History turmeric 400 mg PO DAILY 01/15/20 05/13/20 History gabapentin 300 mg PO DAILY 04/22/20 05/13/20 History OXITRIM 1 tab PO BID 05/13/20 05/13/20 History Allergies Allergy/AdvReac Type Severity Reaction Status Date / Time hydrochlorothiazide Allergy Mild RASH Verified 05/13/20 20:20 nickel Allergy Mild ITCHING Verified 05/13/20 20:21 AND REDNESS TO SKIN Penicillins Allergy Mild YEAST Verified 05/13/20 20:21 INFECTION Past Med/Surg History Medical History Back problem Emphysema lung GERD (gastroesophageal reflux disease) Hiatal hernia History of tachycardia HTN (hypertension) Hypothyroidism Lumbar stenosis with neurogenic claudication Surgical History (Reviewed 05/14/20 @ 02: by Milena Hernandez MD) H/O foot surgery RT History of appendectomy History of colonoscopy History of endoscopy Hx of Achilles tendon repair LEFT Family History (Reviewed 05/14/20 @ 02: by Milena Hernandez MD) Other No family history of adverse response to anesthesia Social History Smoking Status: Former smoker Smoking End Date: 2015; Second Hand Exposure: No; Do You Dip or Chew Tobacco: No; Hx Alcohol Use: Yes Alcohol type: wine and hard liquor Hx Substance Use: No Preferred Language: Azerbaijani Communication Ability: Effective Nurse Ob Required: No Beliefs That Will Affect Care: None Current Living Situation: Spouse current occupational status: retired Other Information That Helps Us Care for You: No Feels Safe at Home: Yes Safety Concerns: Feels Safe At This Time Assistive Devices: Denture - Upper, Denture - Lower and Glasses Review of Systems See HPI for pertinent positives & negatives. and A total of 10 systems reviewed and were otherwise negative Physical Exam Vital Signs Vital Signs - 24 hr 05/13/20 18:05 05/13/20 19:10 05/13/20 19:12 Temperature 37.0 C Temperature Source Oral Pulse Rate 78 Pulse Rate [Apical] 74 Pulse Rate from SpO2 Sensor Respiratory Rate 22 18 Respiratory Effort / Characteristics Non-Labored Spontaneous Respiratory Depth Normal Respiratory Pattern Blood Pressure 215/89 H Blood Pressure [Right Arm] 170/79 H Blood Pressure Mean 131 Blood Pressure Mean [Right Arm] 109 Pulse Oximetry 97 94 94 Oxygen Delivery Method Room Air Room Air Room Air Sepsis Recent Fever Within 48 Hours No Sepsis New/Unexplained Change in Mental Status No Sepsis Action Taken by Nursing No Action Required 05/13/20 19:30 05/13/20 19:53 05/13/20 20:00 Temperature Temperature Source Pulse Rate 69 67 Pulse Rate [Apical] Pulse Rate from SpO2 Sensor 69 67 Respiratory Rate 23 20 Respiratory Effort / Characteristics Non-Labored Respiratory Depth Normal Respiratory Pattern Regular Blood Pressure 158/83 H 154/70 H Blood Pressure [Right Arm] Blood Pressure Mean 110 87 Blood Pressure Mean [Right Arm] Pulse Oximetry 93 94 Oxygen Delivery Method Room Air Room Air Room Air Sepsis Recent Fever Within 48 Hours Sepsis New/Unexplained Change in Mental Status Sepsis Action Taken by Nursing Vital signs reviewed. General: Well-appearing 80-year-old female, in no significant distress. HEENT: No scleral icterus, PERRLA, neck supple. Atraumatic. Cardiovascular: Regular rate and rhythm, minimal systolic ejection murmur Pulmonary: Clear to auscultation bilaterally, normal work of breathing. Abdomen: Soft, nontender, nondistended, positive bowel sounds. Musculoskeletal: Atraumatic, no peripheral edema. Neurologic: Patient awake alert and oriented x 3 Skin: Warm, dry, no rash Course Administered Medications Acetaminophen (Acetaminophen 325 Mg Tab) 650 mg PO Q4H PRN PRN Reason: Pain or Fever Stop: 06/12/20 21:52 Last Admin: 05/14/20 01:41 Dose: 650 mg Documented by: [id number] Admin: 05/13/20 23:03 Dose: 650 mg Documented by: [id number] Atenolol (Atenolol 25 Mg Tablet) 25 mg PO BID [facility] Stop: 06/12/20 21:52 Last Admin: 05/13/20 23:04 Dose: 25 mg Documented by: [id number] Docusate Sodium (Docusate Sodium 100 Mg Cap) 200 mg PO HS [facility] Stop: 06/12/20 21:52 Last Admin: 05/13/20 23:04 Dose: 200 mg Documented by: [id number] Gabapentin (Gabapentin 300 Mg Cap) 300 mg PO TID [facility] Stop: 06/12/20 21:52 Last Admin: 05/14/20 01:40 Dose: Not Given Documented by: [id number] Heparin Sodium/Dextrose (Heparin Sodium/Dextrose) 25,000 units in 500 mls @ 0.02 mls/hr IV .Q24H [facility]; Protocol Stop: 06/12/20 19:44 Last Admin: 05/13/20 20:13 Dose: 850 units/hr, 17 mls/hr Documented by: [id number] Cosigned by: [id number] Nitroglycerin (Nitroglycerin 2% Ointment 30gm Tube) 1 inch EXT Q6 TWAN Stop: 06/13/20 00:00 Last Admin: 05/14/20 02:11 Dose: 1 inch Documented by: [id number] Discontinued Medications Aspirin (Aspirin Chew 324 Mg) 324 mg PO NOW STA Stop: 05/13/20 18:22 Last Admin: 05/13/20 19:07 Dose: 324 mg Documented by: [id number] Heparin Sodium (Porcine) (Heparin Sod (Porcine) 1000 Unit/Ml 10 Ml Vial) Confirm Administered Dose 10,000 units .ROUTE .STK-MED ONE Stop: 05/13/20 20:05 Last Admin: 05/13/20 20:12 Dose: 3,000 units Documented by: [id number] Cosigned by: [id number] Heparin Sodium/Dextrose (Heparin Iv Low Dose With Bolus) 1 ea IV NOW STA; Protocol Stop: 05/13/20 19:37 Last Admin: 05/13/20 20:17 Dose: 1 ea Documented by: [id number] Nitroglycerin (Nitroglycerin 2% Ointment 30gm Tube) 0.5 inch EXT NOW STA Stop: 05/13/20 18:22 Last Admin: 05/13/20 19:07 Dose: 0.5 inch Documented by: [id number] Nitroglycerin (Nitroglycerin 2% Ointment 30gm Tube) Confirm Administered Dose 18 inch .ROUTE .STK-MED ONE Stop: 05/13/20 21:11 Last Admin: 05/13/20 21:14 Dose: 1 inch Documented by: [id number] Critical Care Time Critical Care Time: Yes I have personally spent greater than 32 minutes of critical care time in the direct management of this patient. This includes bedside care, interpretation of diagnostic studies, and testing, discussion with consultants, patient, and family members, and other required patient management activities. This 32 minutes is in excess of all separately billable procedures. Medical Decision Making Differential Diagnosis Cardiac ischemia, aortic dissection, pulmonary embolism, pneumothorax, pneumonia, pericarditis, myocarditis, esophageal rupture, GERD, cholecystitis, pancreatitis, musculoskeletal, as well as other pathologies. Medical Records Attestation: I reviewed the patient's medical records. Home Medications Current Medication List: was personally reviewed by me Laboratory Data Attestation: I reviewed the patient's lab results. Result diagrams: 05/13/20 18:48 05/13/20 18:48 Lab Results 05/13/20 05/13/20 05/13/20 Range/Units 18:48 18:48 18:48 WBC 8.59 (4.8-10.8) K/uL RBC 4.77 (4.2-5.4) M/uL Hgb 14.2 (12.0-16.0) g/dL Hct 43.8 (37-47) % MCV 91.8 (80-100) fL MCH 29.8 (25-34) pg MCHC 32.4 (32-36) g/dL RDW Std Deviation 48.9 H (36.4-46.3) fL RDW Coeff of Madelin 14.4 (11.5-14.5) % Plt Count 269 (130-400) K/uL MPV 11.8 H (7.4-10.4) fL Immature Gran % (Auto) 0.1 % Neut % (Auto) 74.1 % Lymph % (Auto) 19.4 % [place] % (Auto) 5.2 % Eos % (Auto) 1.0 % Baso % (Auto) 0.2 % Neut # (Auto) 6.35 (1.4-6.5) K/uL Lymph # (Auto) 1.67 (1.2-3.4) K/uL [place] # (Auto) 0.45 (0.11-0.59) K/uL Eos # (Auto) 0.09 (0-0.5) K/uL Baso # (Auto) 0.02 (0-0.2) K/uL Immature Gran # (Auto) 0.01 (0.00-0.02) K/uL PT 10.6 (9.0-12.0) Seconds INR 1.0 (0.9-1.1) APTT 23.8 (21.0-31.0) Seconds PTT Ratio 0.9 Sodium 142 (136-145) mmol/L Potassium 3.5 (3.5-5.1) mmol/L Chloride 114 H (98-107) mmol/L Carbon Dioxide 25 (21-32) mmol/L Anion Gap 3.0 (3-11) BUN 25 H (7-18) mg/dl Creatinine 1.21 H (0.6-1.2) mg/dl Est Cr Clr Drug Dosing 42.6 ml/min Est GFR ( Amer) 49.3 Est GFR (Non-Af Amer) 42.5 BUN/Creatinine Ratio 20.6 H (10-20) Glucose 176 H (70-99) mg/dl Calcium 8.7 (8.5-10.1) mg/dl Total Bilirubin 0.2 (0.2-1) mg/dl AST 19 (15-37) U/L ALT 31 (12-78) U/L Alkaline Phosphatase 96 (45-117) U/L Troponin I 0.360 H* (0-0.045) ng/ml Total Protein 7.4 (6.4-8.2) gm/dl Albumin 3.6 (3.4-5.0) gm/dl Globulin 3.8 (2.5-4.0) gm/dl Albumin/Globulin Ratio 0.9 (0.9-2) Lipase 142 (73-393) U/L COVID-19 Eval Order SARS-CoV-2, RNA, NAAT (NEGATIVE) 05/13/20 05/13/20 Range/Units 20:19 20:19 WBC (4.8-10.8) K/uL RBC (4.2-5.4) M/uL Hgb (12.0-16.0) g/dL Hct (37-47) % MCV (80-100) fL MCH (25-34) pg MCHC (32-36) g/dL RDW Std Deviation (36.4-46.3) fL RDW Coeff of Madelin (11.5-14.5) % Plt Count (130-400) K/uL MPV (7.4-10.4) fL Immature Gran % (Auto) % Neut % (Auto) % Lymph % (Auto) % [place] % (Auto) % Eos % (Auto) % Baso % (Auto) % Neut # (Auto) (1.4-6.5) K/uL Lymph # (Auto) (1.2-3.4) K/uL [place] # (Auto) (0.11-0.59) K/uL Eos # (Auto) (0-0.5) K/uL Baso # (Auto) (0-0.2) K/uL Immature Gran # (Auto) (0.00-0.02) K/uL PT (9.0-12.0) Seconds INR (0.9-1.1) APTT (21.0-31.0) Seconds PTT Ratio Sodium (136-145) mmol/L Potassium (3.5-5.1) mmol/L Chloride (98-107) mmol/L Carbon Dioxide (21-32) mmol/L Anion Gap (3-11) BUN (7-18) mg/dl Creatinine (0.6-1.2) mg/dl Est Cr Clr Drug Dosing ml/min Est GFR ( Amer) Est GFR (Non-Af Amer) BUN/Creatinine Ratio (10-20) Glucose (70-99) mg/dl Calcium (8.5-10.1) mg/dl Total Bilirubin (0.2-1) mg/dl AST (15-37) U/L ALT (12-78) U/L Alkaline Phosphatase (45-117) U/L Troponin I (0-0.045) ng/ml Total Protein (6.4-8.2) gm/dl Albumin (3.4-5.0) gm/dl Globulin (2.5-4.0) gm/dl Albumin/Globulin Ratio (0.9-2) Lipase (73-393) U/L COVID-19 Eval Order Covid19 IDNow [facility] SARS-CoV-2, RNA, NAAT NEGATIVE (NEGATIVE) Imaging Data Attestation: I personally reviewed and interpreted this imaging study as follows: Radiologist's Impression: SINGLE VIEW CHEST CLINICAL HISTORY: Atypical chest pain. FINDINGS: An AP, portable, upright chest radiograph is compared to study dated 10/05/2018. Correlation is made with chest CT dated 12/17/2017. The examination is degraded by portable technique and apical lordotic positioning. The heart is mildly enlarged. The pulmonary vasculature is noncongested. There is elevation of the right hemidiaphragm and bibasilar atelectasis. Emphysema and chronic interstitial thickening is similar to previous. No airspace consolidation or large pleural effusion is identified. No pneumothorax is seen. The skeletal structures are osteopenic. The bony thorax is grossly intact. IMPRESSION: Mild cardiac enlargement and emphysema with no acute cardiopulmonary abnormality. ACT 112: Negative or not required by law. Electronically signed by: Dejuan Cannon M.D. 05/13/2020 6:40 PM Dictated: 05/13/201837Transcribed: 05/13/201837 ECG Data Attestation: I personally reviewed and interpreted this ECG as follows: Indication: + chest pain Rate (beats per minute): 71 Rhythm: + normal sinus ECG Intervals/blocks: + Normal QT-c ECG [place]: + Normal ECG ST segments: + ST depression (Lateral) and + T-wave inversions (Lateral) ECG Findings: + Other (ST and T wave abnormality in the anterior and lateral leads); no PACs and no PVCs Comparison ECG Date: from (October 05, 2018) Change: the following changes noted (T wave inversions in the anterior and lateral leads are less evident. ST depression now evident in the lateral leads.) Blood Pressure Blood Pressure Findings: Elevated blood pressure Blood Pressure Disposition: further management by hospitalist MDM Narrative This patient was evaluated and appeared to be in no significant distress. She stated there was a "smoldering" type pain at the time of my evaluation. Patient was given aspirin 324 mg to chew. IV access was obtained and laboratory work was drawn. EKG reveals nonspecific ST change in the anterior lateral leads with T wave inversion laterally. There is change when compared to previous with ST depressions that are new and T wave inversions that are less evident. Chest x- ray was performed and is negative for acute abnormality, cardiomegaly and emphysema noted. Patient's laboratory work reveals a positive troponin at 0.36 with a creatinine of 1.21. A rapid Covid swab was performed and is negative. The patient was placed on a low-dose heparin drip with bolus. Case was di scussed with the hospitalist, Dr. Reyes who will evaluate the patient for admission and further management. Patient is aware of the plan and agrees. Impression & Plan Non-STEMI (non-ST elevated myocardial infarction) Discharge Plan Visit Data Chief Complaint: Chest Pain Stated Complaint: CHEST PAIN, SOB ED Provider: Milena Hernandez Discharge Problem: Non-STEMI (non-ST elevated myocardial infarction) Patient Disposition: Admitted As Inpatient Discharge Instructions Interventions: ED Discharge Assessment Last Done: 05/13/20 21:49
[2020-05-14] MEDS: LEVOTHYROXINE SODIUM 125 MCG TABLET PO SCH (05:04)
[2020-05-14 05:14] LABS: Basophils # (auto) 0.02 K/uL (0-0.2); Basophils % (auto) 0.3 %; Eosinophils % (auto) 1.3 %; Hematocrit (blood only) 39.8 % (37-47); Hemoglobin 12.9 g/dL (12.0-16.0); Immature Granulocytes # (auto) 0.02 K/uL (0.00-0.02); Immature Granulocytes % (auto) 0.3 %; Lymphocytes # (auto) 1.95 K/uL (1.2-3.4); Lymphocytes % (auto) 24.7 %; Mean Corpuscular Hemoglobin 29.5 pg (25-34); Mean Corpuscular Hgb Conc 32.4 g/dL (32-36); Mean Corpuscular Volume 90.9 fL (80-100); Mean Platelet Volume 11.8 fL (7.4-10.4); Monocytes # (auto) 0.45 K/uL (0.11-0.59); Monocytes % (auto) 5.7 %; Neutrophils # (auto) 5.35 K/uL (1.4-6.5); Neutrophils % (auto) 67.7 %; Platelet Count 232 K/uL (130-400); RDW Coefficient of Variation 14.4 % (11.5-14.5); RDW Standard Deviation 48.4 fL (36.4-46.3); Red Blood Count 4.38 M/uL (4.2-5.4); White Blood Count 7.89 K/uL (4.8-10.8)
[2020-05-14 05:36] LABS: Albumin Level 3.2 gm/dl (3.4-5.0); BUN Creatinine Ratio 25.2 (10-20); Calcium 8.5 mg/dl (8.5-10.1); Creatinine Clr Calc Pharmacy 54.8 ml/min; Est GFR (African American) 66.9; Est GFR (Non-African American) 57.7; Magnesium 2.1 mg/dl (1.8-2.4); Partial Thromboplastin Ratio 0.9; Partial Thromboplastin Time 24.5 Seconds (21.0-31.0); Potassium 3.8 mmol/L (3.5-5.1); Prothrombin Time 10.4 Seconds (9.0-12.0)
[2020-05-14 05:45] LABS: Albumin Globulin Ratio 0.9 (0.9-2); Bilirubin,Total 0.3 mg/dl (0.2-1); Globulin 3.5 gm/dl (2.5-4.0); Total Protein 6.7 gm/dl (6.4-8.2); Troponin I 0.528 ng/ml (0-0.045)
[2020-05-14 07:21] LABS: Partial Thromboplastin Ratio 1.1; Partial Thromboplastin Time 30.3 Seconds (21.0-31.0)
[2020-05-14] MEDS: LOSARTAN POTASSIUM 50 MG TAB PO SCH (08:09)
[2020-05-14] MEDS: ASPIRIN 81 MG ECTAB PO SCH (08:09)
[2020-05-14] MEDS: CYANOCOBALAMIN 500 MCG TABLET (VITAMIN B-12) PO SCH (08:10)
[2020-05-14] MEDS: PANTOprazole 40 MG TAB PO SCH (08:10)
[2020-05-14 08:11] LABS: Chol HDL Ratio 3; Cholesterol 165 mg/dl (0-200); HDL Cholesterol 54 mg/dl; LDL Cholesterol Calculated 83 mg/dl; Triglycerides 139 mg/dl (0-150); VLDL Cholesterol 28 mg/dl
--- NOTE | 2020-05-14 08:21 | Hospitalist Progress Note ---
Date of Service May 14, 2020 Assessment & Plan (1) Non-STEMI (non-ST elevated myocardial infarction): Bessy Vick is a 80-year-old female with a past medical history including lumbar stenosis with neurogenic claudication, hypertension, B12 deficiency, constipation, peripheral neuropathy, hypothyroidism, GERD and arthritis. She was admitted 05/13 with chest pain, rising cardiac enzymes, and abnormal ECG (non-STEMI). NSTEMI - EKG in ED showed NSTEMI - Troponin on admission 0.360 --> 0.528 on repeat - Pt having CP this morning when walking to bathroom - EKG this AM shows no signs of further evolution, per cardiology - 2D Echo: normal LV size & function, EF 60-65%, no wall motion abnormalities, mild concentric LV hypertrophy, mild to moderate mitral regurgitation, LA moderately dilated - Cardiology consult: - Given her ongoing symptoms and evidence of vasculopathy elsewhere suggesting a high probability of obstructive coronary disease, would favor invasive evaluation. - Dr. Evin Rg is aware and will evaluate the patient further as to the timing of cardiac catheterization/possible intervention. - Continue aspirin, heparin, atenolol, losartan, and nitroglycerin - Given her persistent hypertension, would increase amlodipine from 5 mg daily to 5 mg twice daily. - Continue losartan 50 mg PO daily, ASA 81mg PO daily, nitroglycerin SL prn - Will switch from atenolol 25mg PO BID to metoprolol succinate 50mg daily - Amlodipine increased from 5mg daily to 5mg BID, per cardio recs - Patient received catheterization--summary: 1. Severe single-vessel coronary artery disease -80% earlymid, 99% acute latemid RCA stenosis 2. Mild to moderate nonculprit coronary artery disease 30% ostial LAD. 40% proximal D1 50% ostial high OM1 3. Normal intracardiac filling pressure 4. Successful PCI of sequential mid RCA lesions with long single drug-eluting stent (3.0 x 38 mm Jesse; postdilated with 3.5 and 4.0 NC proximally) - Started on clopidogrel 75mg PO daily by cardiology - Heparin gtt stopped by cardiology Hypertension - As above, changed atenolol to metoprolol succinate - Increased amlodipine to BID dosing - Continue losartan Hypothyroidism - Continue levothyroxine 125 mcg daily GERD - Continue pantoprazole 40 mg daily FENGI: Heart healthy DVT ppx: Lovenox 40mg SQ daily Dispo: PCU/Telemetry Code: Full Code (2) HTN (hypertension): (3) Hypothyroidism: (4) GERD (gastroesophageal reflux disease): Admission and Anticipated Discharge Date Admission Date: May 13, 2020 Supervising Physician Co-Signing Physician Notes I personally examined the patient and verified all shine points of history and exam, discussed case, and agree with decision making with Dr Chow. feeling ok - seen before cath. no chest pain at rest. cath noted later - cardiology input appreciated vitals noted nad heent nc at mmm breathing unlabored no accessory muscles good effort skin no rashes no pallor or icterus neuro no focal deficits CAD/NSTEMI - cath/stent noted, med management (change to toprol, add atorvastatin) otherwise as above Subjective Patient seen at bedside this AM. She reports chest pain a few minutes prior to my seeing her when she walked to and from the bathroom. Has pain in the middle of her chest and below her left breast. She also describes that when she was having her chest pain before admission she felt "a coldness in my windpipe". She is unable to really explain whether this is more related to her chest pain concerns or having to do with her breathing but she does not have SOB or cough. Of note, she did say she was a smoker since the age of 15 and stopped 3 years ago. She denies fever, chills, SOB, cough, n/v, diarrhea, constipation, abd pain. Review of Systems Review of Systems: All systems reviewed & are unremarkable except as noted in HPI & below Physical Exam Constitutional: WD/WN, vitals as above no acute distress Respiratory: normal respiratory effort, lungs clear to auscultation Cardiovascular: RRR, no murmur, no edema Heart Sounds: normal S1 and normal S2 Skin: no rashes, warm and dry Psychiatric: A+Ox3, euthymic affect Results & Data Results & Data ([facility]) Vital Signs (Past 12 Hours) Vital Signs Temp Pulse Pulse Resp BP BP BP 05/14/20 07:52 36.5 C 55 L 19 186/72 H 05/14/20 07:23 55 L 05/14/20 04:00 36.8 C 67 18 144/72 H 05/14/20 00:00 36.8 C 66 58 L 16 150/71 H 05/13/20 22:02 36.6 C 70 20 182/81 H 05/13/20 21:30 67 21 153/71 H 05/13/20 21:00 68 20 162/82 H 05/13/20 20:30 69 20 164/74 H Pulse Ox 05/14/20 07:52 94 05/14/20 07:23 05/14/20 04:00 93 05/14/20 00:00 97 05/13/20 22:02 92 05/13/20 21:30 94 05/13/20 21:00 94 05/13/20 20:30 94 Resident Activity Tracking Resident Involvement: Resident Care Provided Care Provided: Adult Hospital Medicine
[2020-05-14] MEDS: ATENOLOL 25 MG TABLET PO SCH (08:32)
[2020-05-14] MEDS ORDERED: amLODIPine BESYLATE 5 MG TAB PO SCH (09:00)
[2020-05-14] MEDS ORDERED: HEPARIN IV BOLUS 4,500 UNITS in SYRINGE 0 ML IV ONE (09:20)
--- NOTE | 2020-05-14 09:48 | Electrocardiogram Report ---
Test Reason : Blood Pressure : / mmHG Vent. Rate : 057 BPM Atrial Rate : 057 BPM P-R Int : 154 ms QRS Dur : 102 ms QT Int : 470 ms P-R-T Axes : 077 075 096 degrees QTc Int : [address] depression in Anterolateral leads , consider ischemia Chronic T-wave inversion in Anterior leads Abnormal ECG When compared with ECG of 13-MAY-2020 21:03, No significant change Confirmed by Deandre Clarke ([id number]) on 05/14/2020 9:47:57 AM Referred By: REFERRED SELF Confirmed By:Deandre Clarke
--- NOTE | 2020-05-14 10:54 | Cardiology Consultation ---
Date of Consultation May 14, 2020 Assessment & Plan (1) Non-STEMI (non-ST elevated myocardial infarction): Patient with known vasculopathy but no prior coronary disease admitted with chest pain, rising cardiac enzymes, and abnormal ECG (non-STEMI). She continues to have some chest discomfort, this could be a post infarction phenomenon or could be indicative of further myocardium at risk (particularly since her symptoms increase with activity). Fortunately, her ECG today did not evolve further compared with yesterday. Given her ongoing symptoms and evidence of vasculopathy elsewhere suggesting a high probability of obstructive coronary disease, would favor invasive evaluation. Dr. Evin Rg is aware and will evaluate the patient further as to the timing of cardiac catheterization/possible intervention. Continue aspirin, heparin, atenolol, losartan, and nitroglycerin. Given her persistent hypertension, would increase amlodipine from 5 mg daily to 5 mg twice daily. (2) HTN (hypertension): See above. (3) Carotid stenosis: (4) Renal artery stenosis: (5) Mesenteric artery stenosis: History of Present Illness Reason for Consultation: Non-STEMI Requesting Physician: Jarret Machado MD Attending Physician: Joaquin Ordoñez DO History of Present Illness 80-year-old woman with no prior cardiac history but with vasculopathy on CT angiogram 2018 (moderate to severe stenosis of the superior mesenteric artery, right renal artery, right tibial artery) admitted 05/13/2020 with severe (9/10) chest pain, rising cardiac enzymes, and anterolateral ST depression on her ECG. She did have a hospitalization for chest pain syndrome September 2018 but her enzymes and ECG were both negative at that time and she was managed conservatively. She was placed on nitroglycerin topical, intravenous heparin, and her aspirin and atenolol were continued. She continues to have low-grade chest discomfort (1/10), which increases slightly (23/10) with even minimal activity, such as walking to the bathroom. No dyspnea, palpitations, lightheadedness, presyncope, or syncope. Allergies Allergy/AdvReac Type Severity Reaction Status Date / Time hydrochlorothiazide Allergy Mild RASH Verified 05/13/20 20:20 nickel Allergy Mild ITCHING Verified 05/13/20 20:21 AND REDNESS TO SKIN Penicillins Allergy Mild YEAST Verified 05/13/20 20:21 INFECTION Home Medications Medication Instructions Recorded Confirmed Type amlodipine 5 mg PO DAILY 10/05/18 05/13/20 History atenolol 25 mg PO BID 10/05/18 05/13/20 History docusate sodium [Colace] 200 mg PO HS 10/05/18 05/13/20 History levothyroxine 125 mcg PO DAILY 10/05/18 05/13/20 History losartan 50 mg PO DAILY 10/05/18 05/13/20 History ascorbic acid (vitamin C) [Vitamin 1 g PO DAILY 01/15/20 05/13/20 History C] cyanocobalamin (vitamin B-12) 1,000 mcg PO DAILY 01/15/20 05/13/20 History [Vitamin B-12] pantoprazole 40 mg PO DAILY 01/15/20 05/13/20 History turmeric 400 mg PO DAILY 01/15/20 05/13/20 History gabapentin 300 mg PO DAILY 04/22/20 05/13/20 History OXITRIM 1 tab PO BID 05/13/20 05/13/20 History Patient History Medical History Back problem Emphysema lung GERD (gastroesophageal reflux disease) Hiatal hernia History of tachycardia HTN (hypertension) Hypothyroidism Lumbar stenosis with neurogenic claudication Surgical History H/O foot surgery RT History of appendectomy History of colonoscopy History of endoscopy Hx of Achilles tendon repair LEFT Family History No family history of adverse response to anesthesia Social History Smoking Status: Former smoker Smoking End Date: 2015; Second Hand Exposure: No; Do You Dip or Chew Tobacco: No; Hx Alcohol Use: Yes Alcohol type: wine and hard liquor Hx Substance Use: No Preferred Language: Nigerian Communication Ability: Effective Catering And Events Manager Required: No Beliefs That Will Affect Care: None Current Living Situation: Spouse current occupational status: retired Other Information That Helps Us Care for You: No Feels Safe at Home: Yes Safety Concerns: Feels Safe At This Time Assistive Devices: Denture - Upper, Denture - Lower and Glasses Review of Systems Constitutional: no fever, no chills, no fatigue, no weight loss and no weight gain Eyes: no problem reported Ear, Nose, Mouth, Throat: no problem reported Respiratory: no cough and no dyspnea Cardiovascular: as per Subjective / HPI Gastrointestinal: no abdominal pain and no change in stools Genitourinary: no problem reported Musculoskeletal: no myalgia Integumentary: no rash and no new lesions Neurologic: no falls and no syncope Psychiatric: no problem reported Hematologic / Lymphatic: no easy bleeding and no easy bruising Physical Exam Physical Exam: Elderly white female appears fairly comfortable. Afebrile. BP moderately hypertensive. Heart rate 55-70 bpm. Skin: no ecchymoses or generalized lesions. HEENT: unremarkable. Neck: no JVD or carotid bruits. Lungs clear. Cardiac: regular rhythm and no murmur or gallop. Abdomen benign. Extremities: no edema, pulses brisk. Neurologic: normal affect and conversation, grossly nonfocal. Results & Data ([facility]) Vital Signs (Past 12 Hours) Vital Signs Temp Pulse Pulse Resp BP BP Pulse Ox 05/14/20 07:52 97.7 F 55 L 19 186/72 H 94 05/14/20 07:23 55 L 05/14/20 04:00 98.2 F 67 18 144/72 H 93 05/14/20 00:00 98.2 F 66 58 L 16 150/71 H 97 Laboratory Results Troponin increased from an initial value of 0.36 to 0.52. Normal electrolytes, BUN 24, creatinine 0.94. Baseline PT/PTT were normal. CBC normal. Diagnostic Findings ECG on admission showed sinus bradycardia at 57 bpm, ST depression anterolateral leads suggesting ischemia, chronic anterior T wave inversions. ECG this morning was unchanged. Chest x-ray on admission showed mild cardiac enlargement and emphysema, no acute abnormality. Monitor overnight showed sinus bradycardia at 50-60 bpm.
--- NOTE | 2020-05-14 12:30 | XCELERA ---
[id number]
[2020-05-14] MEDS ORDERED: niCARdipine HCL INJ 2.5 MG/ML 10 ML AMP ONE (12:37)
[2020-05-14] MEDS ORDERED: HEPARIN (PORCINE) 1000 UNIT/ML 10 ML (CATH LAB USE ONLY) ONE ×2 (12:37→13:49)
[2020-05-14] MEDS ORDERED: MIDAZOLAM HCL 1 MG/ML 2ML VIAL ONE (12:37)
[2020-05-14] MEDS ORDERED: NITROGLYCERIN/D5W 100MCG/ML 20ML SYR ONE (12:38)
[2020-05-14] MEDS ORDERED: fentaNYL citrate 100 MCG/2 ML VIAL ONE (12:38)
--- NOTE | 2020-05-14 12:50 | Pre Anesthesia Assessment ---
Date of Service May 14, 2020 Pre Sedation Assessment Vital Signs Temp Pulse Pulse Resp BP BP BP 05/14/20 12:22 97.9 F 57 L 20 152/75 H 05/14/20 07:52 97.7 F 55 L 19 186/72 H 05/14/20 07:23 55 L 05/14/20 04:00 98.2 F 67 18 144/72 H 05/14/20 00:00 98.2 F 66 58 L 16 150/71 H 05/13/20 22:02 97.9 F 70 20 182/81 H 05/13/20 21:30 67 21 153/71 H 05/13/20 21:00 68 20 162/82 H 05/13/20 20:30 69 20 164/74 H 05/13/20 20:00 67 20 154/70 H 05/13/20 19:30 69 23 158/83 H 05/13/20 19:12 05/13/20 19:10 74 18 170/79 H 05/13/20 18:05 98.6 F 78 22 215/89 H Pulse Ox 05/14/20 12:22 94 05/14/20 07:52 94 05/14/20 07:23 05/14/20 04:00 93 05/14/20 00:00 97 05/13/20 22:02 92 05/13/20 21:30 94 05/13/20 21:00 94 05/13/20 20:30 94 05/13/20 20:00 94 05/13/20 19:30 93 05/13/20 19:12 94 05/13/20 19:10 94 05/13/20 18:05 97 Cardiovascular RRR, no murmur, no edema Respiratory normal respiratory effort, lungs clear to auscultation Pre-Sedation Airway Assessment Smoking Status: Former smoker Hx Sleep Apnea: No Hx Difficult Intubation: No Short, Thick Neck: No Thyromental Distance: > or= 3.5 Finger Breadths Oral Cavity: + WNL Mallampati Class: III ASA: ASA3 Procedure Planning Contraindications for Sedation: none Current Medications Reviewed: Yes Notes The planned sedation has been discussed with the patient. Informed Consent was obtained. I have identified the patient, determined the appropriateness of sedation and have assessed the patient immediately prior to the procedure. All medicine(s) and interventions are by my order.
[2020-05-14] MEDS ORDERED: CLOPIDOGREL BISULFATE 300 MG TAB ONE (13:56)
[2020-05-14] MEDS ORDERED: hydrALAZINE HCL 20 MG/ML VIAL ONE (13:59)
--- NOTE | 2020-05-14 14:03 | Post Anesthesia Assessment ---
Date of Service May 14, 2020 Post Sedation Assessment Vital Signs Temp Pulse Pulse Resp BP BP BP 05/14/20 12:22 97.9 F 57 L 20 152/75 H 05/14/20 07:52 97.7 F 55 L 19 186/72 H 05/14/20 07:23 55 L 05/14/20 04:00 98.2 F 67 18 144/72 H 05/14/20 00:00 98.2 F 66 58 L 16 150/71 H 05/13/20 22:02 97.9 F 70 20 182/81 H 05/13/20 21:30 67 21 153/71 H 05/13/20 21:00 68 20 162/82 H 05/13/20 20:30 69 20 164/74 H 05/13/20 20:00 67 20 154/70 H 05/13/20 19:30 69 23 158/83 H 05/13/20 19:12 05/13/20 19:10 74 18 170/79 H 05/13/20 18:05 98.6 F 78 22 215/89 H Pulse Ox 05/14/20 12:22 94 05/14/20 07:52 94 05/14/20 07:23 05/14/20 04:00 93 05/14/20 00:00 97 05/13/20 22:02 92 05/13/20 21:30 94 05/13/20 21:00 94 05/13/20 20:30 94 05/13/20 20:00 94 05/13/20 19:30 93 05/13/20 19:12 94 05/13/20 19:10 94 05/13/20 18:05 97 Recovery Score Activity: Moves 4 extremities Respiration: Deep Breath/Cough Circulation: +/-20% PreAnes Value Consciousness: Fully Awake Oxygen Saturation: O2 needed for >90% Discharge Sedation Level of Care: Fast Track Phase II Post Sedation Plan On clinical assessment, the patient appears to have tolerated the sedation without complications. Patient is recovering as anticipated. Patient will continue to be monitored by nursing and may be discharged when sedation discharge criteria are met per below protocol. Upon Completions of procedure up to 15 minutes continue every 5 minute vital signs and the P.A.R. score; then discharge to a Phase I or Fast Track to Phase II per the following guidelines: * Discharge Patient to appropriate Phase II area if PAR is 8 or greater or return to pre- procedure baseline. The post - procedure orders will be as directed. * If PAR score is less than 8 or not return to pre-procedure baseline then patient will follow Phase I monitoring till PAR is reached for Phase II. The Phase I may be done in procedure room or may call to secure a Phase I area. * If naloxone or flumazenil are used for reversal, hold in Phase I for continued monitoring from when last reversal dose was given for a minimum of 60 minutes or longer pending the nurse and/or physician discretion of patient condition before discharge to Phase II. Please call the Sedation Physician to re-evaluate and complete post-note for discharge to Phase II area. Do NOT discharge from procedure sedation or Phase 1 until post- sedation evaluation note is complete by procedure /sedation MD Sedation Discharge Instructions to be given to the patient at discharge to home.
--- NOTE | 2020-05-14 14:17 | Cardiac Catheterization ---
[facility] Data: Smoking Pipe Repairer Cardiac Status Clinical evaluation leading to the procedure CAD Presenation: Non STEMI Anginal Classification: CCS IV Heart Failure: No Cardiogenic Shock within 24 Hours: No Cardiac Arrest within 24 Hours: No Imaging Studies Past 6 Months: Yes Stress Studies Past 6 Months: No Diagnostic Physicians Name: Gabino Rg MD Status: Urgent Closure Device Percutaneous Entry Location: Radial Closure Device: Radial Band Recommendations: PCI without planned CABG PCI Indication: PCI for high risk Non-ANIA Lesion Segment Name: Mid RCA Culprit Artery: Yes Stenosis Prior to Rx (%): 99 Chronic Total Occlusion: No IVUS: No Pre-Procedure NICANOR Flow: 3 Previously Treated Lesion: No Lesion Complexity: Non-High/Non-C Lesion Length (mm): 35 Thrombus Present: Yes Bifurcation Lesion: No Guidewire Across Lesion: Stenosis Post-Procedure (%): 0 Post-Procedure NICANOR Flow: 3 Devices(s) Deployed: Yes Yes Intraprocedure Events Significant Disection: No Perforation: No Cardiac Cath Procedure Full Procedure Date May 14, 2020 Pre-Procedure Diagnosis Pre-Procedure Diagnosis: Non STEMI AUC Score AUC Score: 8 Post-Procedure Diagnosis Post-Procedure Diagnosis: Severe CAD, Successful PCI and Normal Intracardiac Pressures Procedure(s) Performed Procedure(s) Performed: Coronary Angiography, Left Heart Cath and Drug Eluting Stent Television Operator Gabino Rg MD Logistics Program Manager(s) Simon Estimated Blood Loss Estimated Blood Loss: 15 Medication(s) Medication(s): Clopidogrel, Fentanyl, Heparin, Lidocaine 1%, Nicardipine, Nitroglycerin and Versed Summary of Findings Indication: High risk NSTEMI Access: 6 Fr right radial artery Catheters: Sondheimer, JR4 guide Findings: LM -large caliber vessel, no significant disease LAD -30% ostial LAD, 20 to 30% mid stenosis at takeoff of D1. Distal vessel tortuous and wraps around apex. D1 40% proximal. Circumflex -medium caliber vessel, 20% mid segment disease. High OM1 50% ostial. OM 2, left PLB without significant disease. RCA -dominant, large caliber vessel, 80% earlymid, 99% acute latemid stenosis. Distal vessel, PDA without significant disease. LVEDP -15 -- PCI -- Antithrombotic therapy: Heparin, clopidogrel Procedure: RCA cannulated with JR4 guide Difficult wiring latemid RCA stenosis due to takeoff of multiple branches, angulation. Eventually able to cross lesion with whisper wire With the aid of a GuideLiner mid RCA lesions predilated with 2.5 compliant balloon Dilated lesions stented with 3.0 x 38 mm Jesse drug-eluting stent Stent post-dilated with 3.5 noncompliant balloon and 4.0 NC balloon proximally IC vasodilators administered for spasm Post procedure NICANOR 3 flow, stent well expanded with minimal residual stenosis and no apparent cardiac complications. Arterial Closure: TR band Summary: 1. Severe single-vessel coronary artery disease -80% earlymid, 99% acute latemid RCA stenosis 2. Mild to moderate nonculprit coronary artery disease 30% ostial LAD. 40% proximal D1 50% ostial high OM1 3. Normal intracardiac filling pressure 4. Successful PCI of sequential mid RCA lesions with long single drug-eluting stent (3.0 x 38 mm [place]; postdilated with 3.5 and 4.0 NC proximally). Recommendations: To PCU for continued monitoring Loaded with clopidogrel 600 mg in Smoking Pipe Repairer Continue dual-antiplatelet therapy for at least 1 year Continue statin, and ASCVD risk factor modification Consult cardiac Rehab Hemodynamics Rest Ao:: 120/55/81 Final Ao: 197/79/131 LV: 137/15 Recommendations Recommendations: PCI without planned CABG Specimens Specimens: None Radiation Exposure (mGy) 3985 Contrast (mls) 150 Fluids (cc crystalloids) Fluids (cc crystalloids): 100 Drains Drains: None Anesthesia Moderate Procedural Complication(s) None Disposition PCU I attest to the content of the Intraoperative Record and any orders documented therein. Any exceptions are noted below. [facility] Card Cath Procedure Codes Cardiac Catheterization Procedure 1: Cardiovascular Cath Procedures: 63772 Coronaries and LHC (+/-LV) Moderate Sedation Procedure 1: Sedation/Anesthesia: 09354 Mod Sedation by the same physician;Init15 Min Child Age 5 & Up Procedure 2: Sedation/Anesthesia: 90461 Mod Sedation by the same physician; Ea [id number] Minutes Stenting Procedure 1: Cardiovascular Stent Procedures: 15108 Perc transluminal revascularization of acute sub/total occl, aMI PG Care Time/CCT Total # of Minutes Spent Total Time Spent with Patient: Total time spent is greater than 50% in coordination of care (as documented) at patient's floor/unit and/or counseling patient:
[2020-05-14] MEDS ORDERED: LOSARTAN POTASSIUM 50 MG TAB PO ONE (14:21)
[2020-05-14] MEDS ORDERED: SODIUM CHLORIDE 0.9% 1000ML 1,000 ML IV SCH (14:30)
[2020-05-14] MEDS ORDERED: NITROGLYCERIN 0.3 MG/1 TAB 100 TAB BTL SL PRN (14:49)
[2020-05-14] MEDS ORDERED: ENOXAPARIN INJ 40 MG/0.4 ML SYR SQ SCH (17:30)
--- NOTE | 2020-05-14 18:03 | Billing Data ---
Date of Service May 14, 2020 Coding Level of Care Code 08803 Subseq Hosp Care Lvl 3
[2020-05-14] MEDS: amLODIPine BESYLATE 5 MG TAB PO SCH (20:10)
[2020-05-14] MEDS: DOCUSATE SODIUM 100 MG CAP PO SCH (20:13)
[2020-05-14] MEDS ORDERED: bisacodyL 5 MG TABEC PO PRN (20:19)
[2020-05-15] MEDS: LEVOTHYROXINE SODIUM 125 MCG TABLET PO SCH (06:29)
[2020-05-15 07:43] LABS: Basophils # (auto) 0.02 K/uL (0-0.2); Basophils % (auto) 0.2 %; Eosinophils # (auto) 0.14 K/uL (0-0.5); Eosinophils % (auto) 1.6 %; Hematocrit (blood only) 44.3 % (37-47); Hemoglobin 14.6 g/dL (12.0-16.0); Immature Granulocytes # (auto) 0.01 K/uL (0.00-0.02); Immature Granulocytes % (auto) 0.1 %; Lymphocytes # (auto) 1.23 K/uL (1.2-3.4); Lymphocytes % (auto) 14.3 %; Mean Corpuscular Hemoglobin 29.6 pg (25-34); Mean Corpuscular Volume 89.7 fL (80-100); Mean Platelet Volume 11.4 fL (7.4-10.4); Monocytes # (auto) 0.57 K/uL (0.11-0.59); Monocytes % (auto) 6.6 %; Neutrophils # (auto) 6.66 K/uL (1.4-6.5); Neutrophils % (auto) 77.2 %; Platelet Count 253 K/uL (130-400); RDW Coefficient of Variation 14.4 % (11.5-14.5); RDW Standard Deviation 47.2 fL (36.4-46.3); Red Blood Count 4.94 M/uL (4.2-5.4); White Blood Count 8.63 K/uL (4.8-10.8)
[2020-05-15 07:53] LABS: Partial Thromboplastin Ratio 0.9
[2020-05-15 08:18] LABS: BUN Creatinine Ratio 18.3 (10-20); Calcium 9.3 mg/dl (8.5-10.1); Est GFR (African American) 66.9; Est GFR (Non-African American) 57.7; Potassium 3.6 mmol/L (3.5-5.1)
--- NOTE | 2020-05-15 08:22 | Electrocardiogram Report ---
Test Reason : Blood Pressure : / mmHG Vent. Rate : 073 BPM Atrial Rate : 073 BPM P-R Int : 134 ms QRS Dur : 090 ms QT Int : 396 ms P-R-T Axes : 059 022 093 degrees QTc Int : 436 ms Normal sinus rhythm ST depression in Anterolateral leads Nonspecific T wave abnormality Anterior leads Abnormal ECG When compared with ECG of 14-MAY-2020 07:06, Nonspecific T wave abnormality has replaced inverted T waves in Anterolateral leads Confirmed by Deandre Clarke ([id number]) on 05/15/2020 8:21:52 AM Referred By: REFERRED SELF Confirmed By:Deandre Clarke
[2020-05-15] MEDS: amLODIPine BESYLATE 5 MG TAB PO SCH (08:26)
[2020-05-15] MEDS: LOSARTAN POTASSIUM 50 MG TAB PO SCH (08:26)
[2020-05-15] MEDS: PANTOprazole 40 MG TAB PO SCH (08:27)
[2020-05-15] MEDS: GABAPENTIN 300 MG CAP PO SCH (08:27)
[2020-05-15] MEDS: ASPIRIN 81 MG ECTAB PO SCH (08:27)
[2020-05-15] MEDS: CYANOCOBALAMIN 500 MCG TABLET (VITAMIN B-12) PO SCH (08:31)
--- NOTE | 2020-05-15 08:45 | Electrocardiogram Report ---
Test Reason : Blood Pressure : / mmHG Vent. Rate : 082 BPM Atrial Rate : 082 BPM P-R Int : 146 ms QRS Dur : 086 ms QT Int : 402 ms P-R-T Axes : 069 052 073 degrees QTc Int : 469 ms Poor data quality, interpretation may be adversely affected Normal sinus rhythm Left atrial enlargement ST depression in Anterolateral leads Nonspecific T wave abnormality Anterior leads Prolonged QT Abnormal ECG When compared with ECG of 14-MAY-2020 16:26, No significant change Confirmed by Deandre Clarke ([id number]) on 05/15/2020 8:44:34 AM Referred By: REFERRED SELF Confirmed By:Deandre Clarke
[2020-05-15] MEDS ORDERED: ATORVASTATIN 40 MG TAB PO SCH (09:00)
[2020-05-15] MEDS ORDERED: METOPROLOL SUCC 50MG EXT REL TAB PO SCH (09:00)
[2020-05-15] MEDS ORDERED: ENOXAPARIN INJ 40 MG/0.4 ML SYR SQ SCH (09:00)
[2020-05-15] MEDS ORDERED: CLOPIDOGREL BISULFATE 75 MG TAB PO SCH (11:30)
--- NOTE | 2020-05-15 13:10 | Cardiology Progress Note ---
Date of Service May 15, 2020 Assessment & Plan (1) Non-STEMI (non-ST elevated myocardial infarction): (2) S/P right coronary artery (RCA) stent placement: (3) CAD (coronary artery disease): (4) HTN (hypertension): Patient is doing well clinically after RCA stenting yesterday. Nonocc lusive remaining disease, normal systolic function and no wall motion abnormalities on echo. Dual antiplatelet therapy with aspirin and clopidogrel for at least 1 year, perhaps longer given her other vasculopathy (mesenteric, renal artery, carotid). May be difficult to enroll in cardiac rehab with the ongoing pandemic, I will discuss options with her at the time of follow-up. She requested that I be her primary energy administrator, I will arrange for follow-up with me in the next several weeks. Admission and Anticipated Discharge Date Admission Date: May 13, 2020 Subjective Uneventful night, patient felt quite well this morning. No chest pain, dyspnea, or other complaints. Yesterday she underwent drug-eluting stenting of single-vessel disease (RCA), nonocclusive disease elsewhere. Echocardiogram showed normal systolic function with no wall motion abnormalities. Physical Exam Physical Exam: Elderly white female appears comfortable. Afebrile. BP normotensive. Pulse in the 70s. Skin: no ecchymoses or generalized lesions. HEENT: unremarkable. Neck: no JVD or carotid bruits. Lungs clear. Cardiac: regular rhythm and no murmur or gallop. Abdomen benign. Extremities: no edema, pulses brisk. Neurologic: normal affect and conversation, grossly nonfocal. Results & Data ([facility]) Laboratory Results Normal CBC. Normal electrolytes, creatinine 0.94. Diagnostic Findings ECG today showed sinus rhythm with nonspecific anterior T wave abnormality and minor ST depression in the anterolateral leads. Compared with ECG from yesterday, nonspecific T wave abnormality has replaced inverted T waves in the anterolateral leads. PG Care Time/CCT Total # of Minutes Spent Total Time Spent with Patient: Total time spent is greater than 50% in coord ination of care (as documented) at patient's floor/unit and/or counseling patient: Coding Level of Care Code 58786 Subseq Hosp Care Lvl 3 Diagnoses Non-STEMI (non-ST elevated myocardial infarction) I21.4 S/P right coronary artery (RCA) stent placement Z95.5 CAD (coronary artery disease) I25.10 HTN (hypertension) I10
--- NOTE | 2020-05-15 13:46 | Discharge Summary ---
Date of Service May 15, 2020 Admission HPI Per Admitting Provider The patient is a 80-year-old female with a past medical history including lumbar stenosis with neurogenic claudication, hypertension, B12 deficiency, constipation, peripheral neuropathy, hypothyroidism, GERD and arthritis. In the emergency department she had a COVID-19 test which was negative, and chest x-ray consistent with COPD. She did have an EKG which showed ST/T wave changes in the lateral chest leads and limb leads. Her troponin was elevated at 0.360. In the emergency department she was started on a heparin drip low-dose with bolus, Nitropaste 1/2 inch to the anterior chest wall, and was given aspirin 324 mg. Admission Exam Per Admitting Provider The patient is awake, alert and oriented 3, well developed and well nourished, normocephalic and atraumatic, lying in bed and in no acute distress. HEENT--PERRL, EOMI, mucous membranes and oropharynx normal. Neck--supple. No JVD. No bruits. Thyroid normal, trachea midline, no adenopathy. Heart--normal S1 and S2. No murmurs, rubs or gallops. Lungs--clear bilaterally, no respiratory distress, no accessory muscle use. Abdomen--normal bowel sounds and soft. Nontender. Nondistended. Obese Extremities--no cyanosis or clubbing. No edema. Dermatologic--normal skin turgor, normal color, no abnormal lymph nodes, no rash. Neurologic--cranial nerves II through XII grossly intact. Rheumatologic--normal range of motion. Psychiatric--normal affect. Principal Diagnosis NSTEMI Discharge Exam Constitutional WD/WN, vitals as above no acute distress Respiratory normal respiratory effort, lungs clear to auscultation Cardiovascular RRR, no murmur, no edema Heart Sounds: normal S1 and normal S2 Skin no rashes, warm and dry Psychiatric A+Ox3, euthymic affect Discharge Data Allergies Allergy/AdvReac Type Severity Reaction Status Date / Time hydrochlorothiazide Allergy Mild RASH Verified 05/13/20 20:20 nickel Allergy Mild ITCHING Verified 05/13/20 20:21 AND REDNESS TO SKIN Penicillins Allergy Mild YEAST Verified 05/13/20 20:21 INFECTION Consultations 05/13/20 19:38 ED Decision to Admit Stat 05/13/20 21:53 Consult Cardiology Routine Consult Case Management - Discharge Planning Routine 05/14/20 14:19 Consult Cardiac Rehabilitation Routine Procedures Performed Operation Date: 05/14/20 12:30 Actual Procedures p Drug Eluting Stent SGl Vessel - Odilon Rg MD s Cineradiography w/Routine Exam - Odilon Rg MD s Cath, Left with Cors and Vent - Odilon Rg MD Ordered Studies 05/14/20 12:13 CL Cath Imgs for PACS use only Routine Hospital Course (1) Non-STEMI (non-ST elevated myocardial infarction): Bessy Vick is a 80-year-old female with a past medical history including lumbar stenosis with neurogenic claudication, hypertension, B12 deficiency, constipation, peripheral neuropathy, hypothyroidism, GERD and arthritis. She was admitted 05/13 with chest pain, rising cardiac enzymes, and abnormal ECG (non-STEMI). NSTEMI - EKG in ED showed NSTEMI - Troponin on admission 0.360 --> 0.528 on repeat - 2D Echo: normal LV size & function, EF 60-65%, no wall motion abnormalities, mild concentric LV hypertrophy, mild to moderate mitral regurgitation, LA moderately dilated - Cardiology consult: - Given her ongoing symptoms and evidence of vasculopathy elsewhere suggesting a high probability of obstructive coronary disease, would favor invasive evaluation. - Dr. Evin Rg is aware and will evaluate the patient further as to the timing of cardiac catheterization/possible intervention. - Continue aspirin, heparin, atenolol, losartan, and nitroglycerin - Given her persistent hypertension, would increase amlodipine from 5 mg daily to 5 mg twice daily. - Continued losartan 50 mg PO daily, ASA 81mg PO daily, nitroglycerin SL prn - Switched from atenolol 25mg PO BID to metoprolol succinate 50mg daily - Amlodipine increased from 5mg daily to 5mg BID, per cardio recs - Patient received catheterization--summary: 1. Severe single-vessel coronary artery disease -80% earlymid, 99% acute latemid RCA stenosis 2. Mild to moderate nonculprit coronary artery disease 30% ostial LAD. 40% proximal D1 50% ostial high OM1 3. Normal intracardiac filling pressure 4. Successful PCI of sequential mid RCA lesions with long single drug-eluting stent (3.0 x 38 mm Bryant; postdilated with 3.5 and 4.0 NC proximally) - Started on clopidogrel 75mg PO daily by cardiology - Started on atorvastatin 40mg daily - Will f/u as outpatient with cardiology Hypertension - As above, changed atenolol to metoprolol succinate - Increased amlodipine to BID dosing - Continued losartan Hypothyroidism - Continued levothyroxine 125 mcg daily GERD - Continued pantoprazole 40 mg daily FENGI: Heart healthy Dispo: Home--self care Code: Full Code (2) HTN (hypertension): (3) Hypothyroidism: (4) GERD (gastroesophageal reflux disease): Total Time Total Time Spent Total Time Spent (In Minutes): <30 Discharge Plan Discharge Items Patient Disposition: Home - Self-Care Reason For Visit: NON-STEMI Discharge Diagnosis: NSTEMI, s/p drug eluting stent placement Activity: Per Instructions section Non-emergency contact: Primary Care Provider and Instructor Flying Call non-emergency contact if: your symptoms worsen and your pain is not controlled Follow-up/Referrals: Breezy Rich MD [Primary Care Provider] - Diet: Heart Healthy Addtl Attending Provider Instructions: You were admitted to [facility] due to chest pain. You were found to have had a non-ST elevation myocardial infarction. Cardiology saw you and decided to do a catheterization where they found 99% stenosis of your right coronary artery. The valve maker was able to place a stent in your artery and open up the blockage. There will be several medication changes that you will have to make after this admission to reduce the risk of future cardiovascular episodes/heart attacks. These changes are as follow: * You will take amlodipine 5mg twice daily now instead of once daily * You will stop taking your atenolol and will be switched to metoprolol succinate 50mg daily * You will start taking Lipitor 40mg daily * You will start taking Aspirin 81mg daily * You will start taking Plavix 75mg daily Continue all your other chronic medications as previously prescribed. Please follow up with cardiology as an outpatient for further recommendations regarding your intervention and new medications. It is also recommended that you follow up with your primary care provider for management of your chronic conditions. If you develop chest pain, chest pressure, palpitations, shortness of breath or any concerning symptoms, please seek emergency care. Pending Studies at Discharge: No Stand-Alone Forms: My [employer], Smoking Cessation Medications and DC Order Prescriptions: New atorvastatin 40 mg Tablet 40 mg PO QAM Qty: 30 RF: 0 metoprolol succinate 50 mg Tablet Extended Release 24 Hr 50 mg PO QAM Qty: 30 RF: 0 clopidogrel 75 mg Tablet 75 mg PO QAM Qty: 30 RF: 0 amlodipine [Norvasc] 5 mg Tablet 5 mg PO BID Qty: 60 RF: 0 aspirin 81 mg Tablet,Delayed Release (Dr/Ec) 81 mg PO QAM Qty: 30 RF: 0 Continued losartan 50 mg tablet 50 mg PO DAILY RF: 0 levothyroxine 125 mcg tablet 125 mcg PO DAILY RF: 0 docusate sodium [Colace] 100 mg Capsule 200 mg PO HS RF: 0 ascorbic acid (vitamin C) [Vitamin C] 1,000 mg Tablet 1 g PO DAILY RF: 0 cyanocobalamin (vitamin B-12) [Vitamin B-12] 1,000 mcg Tablet 1,000 mcg PO DAILY RF: 0 pantoprazole 40 mg Tablet,Delayed Release (Dr/Ec) 40 mg PO DAILY RF: 0 turmeric 400 mg Capsule 400 mg PO DAILY RF: 0 gabapentin 300 mg Capsule 300 mg PO DAILY RF: 0 OXITRIM 1 tab PO BID RF: 0 Discontinued atenolol 25 mg tablet 25 mg PO BID RF: 0 amlodipine 5 mg tablet 5 mg PO DAILY RF: 0 Discharge Orders: Discharge Order (Routine); Ordered 05/15/20 Ordered By: Donnie Ceron/Other Patient Handouts: ED Cardiac Cath Post Bleed Hematom, Atorvastatin tablets, Clopidogrel tablets, Metoprolol tablets, Aspirin ASA chewable tablets Admission Data Admit Date/Time: 05/13/20 20:29 Attending Provider: Joaquin Ordoñez Admit Provider: Jarret Machado Primary Care Provider: Breezy Rich Other Providers: Jarret Machado ; Kash Cadet Other Interventions: Discharge Summary Assessment (RN) Last Done: 05/15/20 11:42 Supervising Physician Co-Signing Physician Notes I personally examined the patient and verified all sihne points of history and exam, discussed case, and agree with decision making with Dr Chow. feeling good, up to going home. reviewed meds. expresses understanding. discussed need for close and ongoing follow up vitals noted nad heent nc at mmm breathing unlabored no accessory muscles good effort skin no rashes no pallor or icterus neuro no focal deficits CAD/NSTEMI - cath/stent, med management. stable for home otherwise as above Resident Activity Tracking Resident Involvement: Resident Care Provided Care Provided: Adult Hospital Medicine
--- NOTE | 2020-05-15 15:35 | Billing Data ---
Date of Service May 15, 2020 Coding Level of Care Code D/C Day Management <30 mins
--- NOTE | 2020-05-16 10:59 | Electrocardiogram Report ---
Test Reason : Blood Pressure : / mmHG Vent. Rate : 071 BPM Atrial Rate : 071 BPM P-R Int : 134 ms QRS Dur : 088 ms QT Int : 340 ms P-R-T Axes : 058 045 127 degrees QTc Int : 369 ms Normal sinus rhythm Abnormal ECG When compared with ECG of 05-OCT-2018 01:50, ST now depressed in Inferior leads T wave inversion less evident in Anterolateral leads QT has shortened Confirmed by Gabino Becerra ([id number]) on 05/16/2020 10:59:35 AM Referred By: REFERRED SELF Confirmed By:Rayo Becerra
--- NOTE | 2020-05-16 11:14 | Electrocardiogram Report ---
Test Reason : Blood Pressure : / mmHG Vent. Rate : 067 BPM Atrial Rate : 067 BPM P-R Int : 136 ms QRS Dur : 090 ms QT Int : 378 ms P-R-T Axes : 053 031 105 degrees QTc Int : 399 ms Normal sinus rhythm Abnormal ECG When compared with ECG of 13-MAY-2020 18:08, (unconfirmed) No significant change was found Confirmed by Gabino Becerra ([id number]) on 05/16/2020 11:13:37 AM Referred By: REFERRED SELF Confirmed By:Rayo Becerra
== END 2020-05-15 13:25 | disposition home or self-care (01) | DRG 247 ==
LOC: ED 18:02 → SUATTDRO 20:29 → 2S 20:29

== ENCOUNTER 2020-11-01 10:29 | Observation (INO) ==
--- NOTE | 2020-11-01 10:48 | Emergency Department Note ---
Impression & Plan Left-sided chest pain, Abnormal ECG ED Provider Note INFORMANT: Patient ED PROVIDER(S): Tomas Minaya MD CHIEF COMPLAINT: Chest pain PLAN: Disposition: Admitted Condition: Good Outpatient prescription management: none Referral: None MEDICAL DECISION MAKING: Patient presented to emergency room complaining of chest pain. She has a coronary history. ECG did show acute changes but no ST elevation. She had resolution of her symptoms without direct intervention. She was given aspirin. Her blood work was unremarkable. Chest x-ray did not reveal any acute findings. She was reassessed and was doing well. Given her history and this current situation I discussed further management in the hospital. Patient and were in agreement. Consultation was placed with Dr stephens of the hospitalist service. Patient was evaluated in the ER admitted for further management. Triage Nursing notes reviewed and agree them. Vital Signs: reviewed and remarkable for no significant abnormalities Differential diagnosis: Cardiac ischemia, aortic dissection, pulmonary embolism, pneumothorax, pneumonia, pericarditis, myocarditis, esophageal rupture, GERD, cholecystitis, pancreatitis, musculoskeletal, as well as other pathologies. Diagnostics interpreted by me: ECG: Twelve-lead ECG reveals a normal sinus rhythm at 63 bpm. There is an anterolateral T wave inversion present. When compared to 14 May 2020 the T wave inversions are more pronounced. Cardiac Monitoring:Cardiac monitoring ordered by me: The patient was placed on continuous cardiac monitoring and observed. It revealed a normal sinus rhythm at 61 beats per minute without ectopy or evidence of dysrhythmia. Imaging studies: Chest x-ray. Findings: A chest x-ray was performed and revealed no pneumothorax, effusion, infiltrate, pulmonary edema, free air under the diaphragm, or wide mediastinum. Impression: No acute disease. HPI: The patient is a 80 year old female who presents to the Emergency Room with complaints of left sided chest pain. This started this morning at 0900 and is nearly resolved. The patient also notes the following associated symptoms, pressure in the left chest, nausea, and exhaustion. The patient has used tylenol for relieving factors. Current pain is rated as 2/10. Pain radiated to the neck and left side, and arm. Pt denies LOC, headache, fevers, chills, diaphoresis, visual changes, neck pain, breathing difficulties, vomiting, abdominal pain, back pain, melena, hematochezia, urinary symptoms, numbness, weakness, lymphadenopathy, rash, or other complaints. ROS: See above HPI for pertinent positives & negatives. A total of 10 systems reviewed and were otherwise negative. PAST MEDICAL HISTORY:See Below , CAd PAST SURGICAL HISTORY:See Below, Stent FAMILY HISTORY:See Below SOCIAL HISTORY:See Below, HOME MEDICATIONS:See Below ALLERGIES:See Below VITALS:See Below PHYSICAL EXAMINATION: GENERAL: Awake, alert, well-appearing, in no distress HENT: Normocephalic, atraumatic. Oropharynx unremarkable. EYES: Normal conjunctiva. Sclera non-icteric. NECK: Inspection normal. Non-tender. Supple. No nuchal rigidity. FROM. No masses. RESPIRATORY: Clear to auscultation. No wheezes. No rales. Normal respiratory effort. CARDIAC: Normal rate. Normal rhythm. No murmurs. No rubs. Extremities warm and well perfused. Pulses equal. No JVD. GI: Soft, non-distended. No tenderness to palpation. No rebound or guarding. No masses. RECTAL: Deferred. MUSCULOSKELETAL: Atraumatic. Chest examination reveals no tenderness. The back is symmetrical on inspection without obvious abnormality. There is no CVA tenderness to palpation. No joint edema. LOWER EXTREMITIES: Calves are equal size bilaterally and non-tender. No edema. No discoloration. NEURO: Normal sensorium. No sensory or motor deficits noted. SKIN: No rash or jaundice noted. Tomas Minaya MD Past Med/Surg History Medical History Back problem Emphysema lung GERD (gastroesophageal reflux disease) Hiatal hernia History of tachycardia HTN (hypertension) Hypothyroidism Lumbar stenosis with neurogenic claudication Non-STEMI (non-ST elevated myocardial infarction) 05/14/2020--had heart cath with 1 stent placement--on plavix daily--follows with Dr. Clarke Surgical History H/O foot surgery RT History of appendectomy History of cardiac cath 05/14/2020 @ [facility] with 1 stent placed History of colonoscopy History of esophagogastroduodenoscopy (EGD) Hx of Achilles tendon repair LEFT S/P epidural steroid injection (~05/11/20) S/P right coronary artery (RCA) stent placement (05/14/20) Family History No family history of adverse response to anesthesia Social History Smoking Status: Never smoker Second Hand Exposure: No; Hx Alcohol Use: Yes Alcohol type: wine and hard liquor Hx Substance Use: No Preferred Language: Kinyarwanda Communication Ability: Effective Tig Welder Required: No Beliefs That Will Affect Care: None Current Living Situation: Spouse current occupational status: retired Feels Safe at Home: Yes Assistive Devices: Denture - Upper, Denture - Lower and Glasses Allergies Allergies Allergy/AdvReac Type Severity Reaction Status Date / Time hydrochlorothiazide Allergy Mild RASH Verified 11/01/20 11:28 nickel Allergy Mild ITCHING Verified 11/01/20 11:28 AND REDNESS TO SKIN Penicillins Allergy Mild YEAST Verified 11/01/20 11:28 INFECTION Home Meds Home Medications Medication Instructions Recorded Confirmed levothyroxine 125 mcg PO QAM 10/05/18 11/01/20 losartan 50 mg PO QAM 10/05/18 11/01/20 gabapentin 300 mg PO BID 04/22/20 11/01/20 methylcellulose (with sugar) oral 1 tbsp PO QAM g 08/23/20 11/01/20 powder pantoprazole 40 mg tablet,delayed 40 mg PO DAILY PRN 08/23/20 11/01/20 release polyethylene glycol 3350 17 17 g PO QAM g 08/23/20 11/01/20 gram/dose oral powder amlodipine [Norvasc] 5 mg PO QAM 09/20/20 11/01/20 bisacodyl [Dulcolax (bisacodyl)] 10 mg PO HS 09/20/20 11/01/20 Previous Rx's Medication Instructions Recorded aspirin 81 mg PO QAM #30 tab 05/15/20 atorvastatin 40 mg PO QAM #30 tab 05/15/20 clopidogrel 75 mg PO QAM #30 tab 05/15/20 metoprolol succinate 50 mg PO QAM #30 tab 05/15/20 spironolactone 25 mg tablet 25 mg PO Q2D #45 tab 08/23/20 Results & Data (ED) Vital Signs Vital Signs - 24 hr 11/01/20 10:31 11/01/20 10:39 11/01/20 10:40 Temperature 36.8 C Temperature Source Temporal Artery Scan Pulse Rate 75 67 Pulse Rate from SpO2 Sensor 67 Pulse Rhythm Regular Pulse Strength Normal Respiratory Rate 20 18 Respiratory Effort / Characteristics Non-Labored Spontaneous Respiratory Depth Normal Respiratory Pattern Regular Blood Pressure 150/78 H 124/76 Blood Pressure Mean 102 92 Blood Pressure Position Sitting Pulse Oximetry 93 95 96 Oxygen Delivery Method Room Air Room Air Sepsis Recent Fever Within 48 Hours No Sepsis New/Unexplained Change in Mental Status N/A Sepsis Action Taken by Nursing No Action Required 11/01/20 11:00 11/01/20 13:35 11/01/20 14:00 Temperature Temperature Source Pulse Rate 62 60 62 Pulse Rate from SpO2 Sensor 61 Pulse Rhythm Pulse Strength Respiratory Rate 19 16 18 Respiratory Effort / Characteristics Respiratory Depth Respiratory Pattern Blood Pressure 120/67 157/94 H 174/83 H Blood Pressure Mean 84 115 113 Blood Pressure Position Pulse Oximetry 95 Oxygen Delivery Method Sepsis Recent Fever Within 48 Hours Sepsis New/Unexplained Change in Mental Status Sepsis Action Taken by Nursing 11/01/20 14:31 11/01/20 16:30 Temperature Temperature Source Pulse Rate 60 55 L Pulse Rate from SpO2 Sensor 56 L Pulse Rhythm Pulse Strength Respiratory Rate 16 15 Respiratory Effort / Characteristics Respiratory Depth Respiratory Pattern Blood Pressure 170/86 H 150/77 H Blood Pressure Mean 114 101 Blood Pressure Position Pulse Oximetry 97 Oxygen Delivery Method Sepsis Recent Fever Within 48 Hours Sepsis New/Unexplained Change in Mental Status Sepsis Action Taken by Nursing Laboratory Data Result diagrams: 11/01/20 11:23 11/01/20 11:23 Lab Results 11/01/20 11/01/20 11/01/20 Range/Units 11:23 11:23 11:23 WBC 9.34 (4.8-10.8) K/uL RBC 4.59 (4.2-5.4) M/uL Hgb 14.0 (12.0-16.0) g/dL Hct 42.0 (37-47) % MCV 91.5 (80-100) fL MCH 30.5 (25-34) pg MCHC 33.3 (32-36) g/dL RDW Std Deviation 48.7 H (36.4-46.3) fL RDW Coeff of Madelin 14.5 (11.5-14.5) % Plt Count 276 (130-400) K/uL MPV 10.8 H (7.4-10.4) fL Immature Gran % (Auto) 0.2 % Neut % (Auto) 74.8 % Lymph % (Auto) 16.1 % [place] % (Auto) 7.1 % Eos % (Auto) 1.5 % Baso % (Auto) 0.3 % Neut # (Auto) 6.99 H (1.4-6.5) K/uL Lymph # (Auto) 1.50 (1.2-3.4) K/uL [place] # (Auto) 0.66 H (0.11-0.59) K/uL Eos # (Auto) 0.14 (0-0.5) K/uL Baso # (Auto) 0.03 (0-0.2) K/uL Immature Gran # (Auto) 0.02 (0.00-0.02) K/uL PT INR APTT PTT Ratio Sodium 143 (136-145) mmol/L Potassium 3.7 (3.5-5.1) mmol/L Chloride 114 H (98-107) mmol/L Carbon Dioxide 24 (21-32) mmol/L Anion Gap 5.0 (3-11) BUN 15 (7-18) mg/dl Creatinine 1.00 (0.6-1.2) mg/dl Est Cr Clr Drug Dosing 52.8 ml/min Est GFR ( Amer) 62.1 ml/min Est GFR (Non-Af Amer) 53.5 ml/min BUN/Creatinine Ratio 15.4 (10-20) Glucose 112 H (70-99) mg/dl Calcium 8.9 (8.5-10.1) mg/dl Total Bilirubin 0.4 (0.2-1) mg/dl AST 16 (15-37) U/L ALT 34 (12-78) U/L Alkaline Phosphatase 90 (45-117) U/L Troponin I < 0.015 (0-0.045) ng/ml Total Protein 6.9 (6.4-8.2) gm/dl Albumin 3.4 (3.4-5.0) gm/dl Globulin 3.5 (2.5-4.0) gm/dl Albumin/Globulin Ratio 1.0 (0.9-2) Lipase 111 (73-393) U/L COVID-19 Eval Order Covid19 at [facility] SARS-CoV-2 (PCR) (Negative) 11/01/20 11/01/20 11/01/20 Range/Units 11:23 14:31 14:31 WBC (4.8-10.8) K/uL RBC (4.2-5.4) M/uL Hgb (12.0-16.0) g/dL Hct (37-47) % MCV (80-100) fL MCH (25-34) pg MCHC (32-36) g/dL RDW Std Deviation (36.4-46.3) fL RDW Coeff of Madelin (11.5-14.5) % Plt Count (130-400) K/uL MPV (7.4-10.4) fL Immature Gran % (Auto) % Neut % (Auto) % Lymph % (Auto) % [place] % (Auto) % Eos % (Auto) % Baso % (Auto) % Neut # (Auto) (1.4-6.5) K/uL Lymph # (Auto) (1.2-3.4) K/uL [place] # (Auto) (0.11-0.59) K/uL Eos # (Auto) (0-0.5) K/uL Baso # (Auto) (0-0.2) K/uL Immature Gran # (Auto) (0.00-0.02) K/uL PT Cancelled INR Cancelled APTT Cancelled PTT Ratio Cancelled Sodium (136-145) mmol/L Potassium (3.5-5.1) mmol/L Chloride (98-107) mmol/L Carbon Dioxide (21-32) mmol/L Anion Gap (3-11) BUN (7-18) mg/dl Creatinine (0.6-1.2) mg/dl Est Cr Clr Drug Dosing ml/min Est GFR ( Amer) ml/min Est GFR (Non-Af Amer) ml/min BUN/Creatinine Ratio (10-20) Glucose (70-99) mg/dl Calcium (8.5-10.1) mg/dl Total Bilirubin (0.2-1) mg/dl AST (15-37) U/L ALT (12-78) U/L Alkaline Phosphatase (45-117) U/L Troponin I < 0.015 (0-0.045) ng/ml Total Protein (6.4-8.2) gm/dl Albumin (3.4-5.0) gm/dl Globulin (2.5-4.0) gm/dl Albumin/Globulin Ratio (0.9-2) Lipase (73-393) U/L COVID-19 Eval Order SARS-CoV-2 (PCR) NEGATIVE (Negative) 11/01/20 Range/Units 16:26 WBC (4.8-10.8) K/uL RBC (4.2-5.4) M/uL Hgb (12.0-16.0) g/dL Hct (37-47) % MCV (80-100) fL MCH (25-34) pg MCHC (32-36) g/dL RDW Std Deviation (36.4-46.3) fL RDW Coeff of Madelin (11.5-14.5) % Plt Count (130-400) K/uL MPV (7.4-10.4) fL Immature Gran % (Auto) % Neut % (Auto) % Lymph % (Auto) % [place] % (Auto) % Eos % (Auto) % Baso % (Auto) % Neut # (Auto) (1.4-6.5) K/uL Lymph # (Auto) (1.2-3.4) K/uL [place] # (Auto) (0.11-0.59) K/uL Eos # (Auto) (0-0.5) K/uL Baso # (Auto) (0-0.2) K/uL Immature Gran # (Auto) (0.00-0.02) K/uL PT 10.0 INR 1.0 APTT 22.9 PTT Ratio 0.9 Sodium (136-145) mmol/L Potassium (3.5-5.1) mmol/L Chloride (98-107) mmol/L Carbon Dioxide (21-32) mmol/L Anion Gap (3-11) BUN (7-18) mg/dl Creatinine (0.6-1.2) mg/dl Est Cr Clr Drug Dosing ml/min Est GFR ( Amer) ml/min Est GFR (Non-Af Amer) ml/min BUN/Creatinine Ratio (10-20) Glucose (70-99) mg/dl Calcium (8.5-10.1) mg/dl Total Bilirubin (0.2-1) mg/dl AST (15-37) U/L ALT (12-78) U/L Alkaline Phosphatase (45-117) U/L Troponin I (0-0.045) ng/ml Total Protein (6.4-8.2) gm/dl Albumin (3.4-5.0) gm/dl Globulin (2.5-4.0) gm/dl Albumin/Globulin Ratio (0.9-2) Lipase (73-393) U/L COVID-19 Eval Order SARS-CoV-2 (PCR) (Negative) Administered Medications Discontinued Medications Aspirin (Aspirin Chew 324 Mg) 243 mg PO NOW STA Stop: 11/01/20 13:12 Last Admin: 11/01/20 13:33 Dose: 243 mg Documented by: [id number] Imaging Data Radiologist's Impression: Chest X-Ray 11/01/20 10:33 XR chest 1V portable HISTORY: Atypical Chest Pain COMPARISON: 05/13/2020. FINDINGS: No pneumothorax. No pleural effusions. The heart remains top normal in size. The lungs are clear. No evidence for pulmonary edema. No rib fractures identified. Degenerative changes again noted within the right shoulder. IMPRESSION: No acute process. ACT 112: Negative or not required by law. Electronically signed by: Nikolai Sifuentes M.D. 11/01/2020 11:03 AM Discharge Plan Visit Data Chief Complaint: Chest Pain Stated Complaint: CHEST PAIN ED Provider: Tomas Minaya Discharge Problem: Left-sided chest pain, Abnormal ECG Forms Stand Alone Forms: My [facility] Prescriptions Prescriptions: No Action polyethylene glycol 3350 [Miralax] 17 gram/dose powder 17 g PO QAM RF: 0 Citrucel (sucrose) Powder 1 tbsp PO QAM RF: 0 spironolactone 25 mg tablet 25 mg PO Q2D Qty: 45 RF: 2 losartan 50 mg tablet 50 mg PO QAM RF: 0 levothyroxine 125 mcg tablet 125 mcg PO QAM RF: 0 pantoprazole 40 mg tablet,delayed release (DR/EC) 40 mg PO DAILY PRN (Reason: Acid Reflux) RF: 0 gabapentin 300 mg Capsule 300 mg PO BID RF: 0 atorvastatin 40 mg Tablet 40 mg PO QAM Qty: 30 RF: 0 metoprolol succinate 50 mg Tablet Extended Release 24 Hr 50 mg PO QAM Qty: 30 RF: 0 clopidogrel 75 mg Tablet 75 mg PO QAM Qty: 30 RF: 0 aspirin 81 mg Tablet,Delayed Release (Dr/Ec) 81 mg PO QAM Qty: 30 RF: 0 bisacodyl [Dulcolax (bisacodyl)] 5 mg Tablet,Delayed Release (Dr/Ec) 10 mg PO HS RF: 0 amlodipine [Norvasc] 5 mg tablet 5 mg PO QAM RF: 0
--- NOTE | 2020-11-01 11:05 | XRay Report ---
XR chest 1V portable HISTORY: Atypical Chest Pain COMPARISON: 05/13/2020. FINDINGS: No pneumothorax. No pleural effusions. The heart remains top normal in size. The lungs are clear. No evidence for pulmonary edema. No rib fractures identified. Degenerative changes again noted within the right shoulder. IMPRESSION: No acute process. ACT 112: Negative or not required by law. Electronically signed by: Nikolai Sifuentes M.D. 11/01/2020 11:03 AM
[2020-11-01 11:39] LABS: Basophils # (auto) 0.03 K/uL (0-0.2); Basophils % (auto) 0.3 %; Eosinophils # (auto) 0.14 K/uL (0-0.5); Eosinophils % (auto) 1.5 %; Immature Granulocytes # (auto) 0.02 K/uL (0.00-0.02); Immature Granulocytes % (auto) 0.2 %; Lymphocytes % (auto) 16.1 %; Mean Corpuscular Hemoglobin 30.5 pg (25-34); Mean Corpuscular Hgb Conc 33.3 g/dL (32-36); Mean Corpuscular Volume 91.5 fL (80-100); Mean Platelet Volume 10.8 fL (7.4-10.4); Monocytes # (auto) 0.66 K/uL (0.11-0.59); Monocytes % (auto) 7.1 %; Neutrophils # (auto) 6.99 K/uL (1.4-6.5); Neutrophils % (auto) 74.8 %; Platelet Count 276 K/uL (130-400); RDW Coefficient of Variation 14.5 % (11.5-14.5); RDW Standard Deviation 48.7 fL (36.4-46.3); Red Blood Count 4.59 M/uL (4.2-5.4); White Blood Count 9.34 K/uL (4.8-10.8)
[2020-11-01 12:03] LABS: Alanine Aminotransferase 34 U/L (12-78); Albumin Level 3.4 gm/dl (3.4-5.0); Alkaline Phosphatase 90 U/L (45-117); Aspartate Aminotransferase 16 U/L (15-37); BUN Creatinine Ratio 15.4 (10-20); Bilirubin,Total 0.4 mg/dl (0.2-1); Blood Urea Nitrogen 15 mg/dl (7-18); Calcium 8.9 mg/dl (8.5-10.1); Carbon Dioxide 24 mmol/L (21-32); Chloride 114 mmol/L (98-107); Creatinine Clr Calc Pharmacy 52.8 ml/min; Est GFR (African American) 62.1 ml/min; Est GFR (Non-African American) 53.5 ml/min; Globulin 3.5 gm/dl (2.5-4.0); Glucose 112 mg/dl (70-99); Lipase 111 U/L (73-393); Potassium 3.7 mmol/L (3.5-5.1); Sodium 143 mmol/L (136-145); Total Protein 6.9 gm/dl (6.4-8.2)
[2020-11-01 12:04] LABS: Troponin I < 0.015 ng/ml (0-0.045)
--- NOTE | 2020-11-01 12:08 | Electrocardiogram Report ---
Test Reason : Blood Pressure : / mmHG Vent. Rate : 063 BPM Atrial Rate : 063 BPM P-R Int : 152 ms QRS Dur : 086 ms QT Int : 378 ms P-R-T Axes : 048 019 125 degrees QTc Int : 386 ms Normal sinus rhythm Abnormal ECG When compared with ECG of 15-MAY-2020 06:40, T wave inversion more evident in Anterolateral leads QT has shortened Confirmed by Gabino Becerra ([id number]) on 11/01/2020 12:08:21 PM Referred By: Confirmed By:Rayo Becerra
[2020-11-01] MEDS ORDERED: ASPIRIN CHEW 324 MG PO STA (13:11)
--- NOTE | 2020-11-01 14:48 | History & Physical Report ---
Date of Service November 01, 2020 Assessment & Plan (1) Chest pain: 80 YOF s/p RCA stent in April with short lived chest tightness this morning. - Currently pain free - ECG with anteriorlateral Twave inversions- trend ECG - Troponin negative at 6 hour maia- trend troponin I - Continue ASA - Continue Atorvastatin 40 mg - Continue DAPT- is on year long DAPT until April - Continue Metoprolol 50 Follow patient symptoms. Lopressor IV to decrease double product if pain returns or troponin increase ECHO pending, cardiology consult placed. (2) CAD (coronary artery disease): Patient with RCA stent in 2019 - non occlusive disease to the LAD 30%, 20-30% D1, 20% Circ, 50% Om1 at that time - as above appropriate medication management (3) Arterial disease: - As above with statin, aspirin, Plavix Vasculopathy patient with vascular workup performed in 2019 to include CTA of aorta with runoff, Venous Doppler, carotid Doppler - . No evidence for abdominal aortic aneurysm or dissection. There is mild mu ltifocal narrowing within the abdominal aorta and iliac arteries without high- grade stenosis or occlusion. 2. Moderate to severe stenosis within the proximal superior mesenteric artery and within the proximal right renal artery. 3. Multifocal high-grade stenosis with short segment occlusions within the mid right anterior tibial artery with distal reconstitution. This results in the attenuated flow within the right dorsalis pedis artery. 4. There is 3 vessel runoff within the left calf. her pain that she is experiencing in her legs is likely claudication with her arterial disease, her ambulation has decreased secondary to this, so likely not having benefit from walking plan. PT/OT consult while in hospital. - Consider follow up imaging after cardiac picture becomes more clear. Consider following with vascular as outpatient. (4) Renal artery stenosis: Moderate to severe stenosis of proximal right renal artery (2019) - Continue BP control - Continue statin - stable renal function and BP - (5) Carotid artery stenosis: As above - No neurological symptoms (6) GERD (gastroesophageal reflux disease): Continue pantoprazole 40 daily while on DAPT (7) Hypothyroidism: Continue synthroid (8) HTN (hypertension): As above (9) Lumbar stenosis with neurogenic claudication: Continue tylenol and walking - Pt/OT (10) Emphysema lung: Patient seen in 2019- declined inhalers at that time - asymptomatic no acute needs History of Present Illness Primary Care Provider: [facility] [place] 80 YOF with past medical history of NSTEMI in April with RCA stent on DAPT therapy, Obesity, HTN, HLD, Osteoarthritis, lumbar/sacral stenosis, and hypothyroidism, bilateral carotid artery stenosis, and PAD. Patient comes in today for complaints of chest tightness with radiation up to her throat and across her left chest. The pain started this morning after she was on the phone with her PCP office. She originally called the PCP office for her left shoulder pain and left groin/thigh pain. She has been experiencing worsening pain and decreased motion of her left shoulder and was not controlled with her home regimen. After being told she could not get in to see her PCP until November she got irritated and after hanging up the phone this was about 0900. She started with chest tightness described as someone squeezing her. The tightness went across her left chest and up into her neck. This was associated with nausea and mild shortness of breath. This did not go away so she had her bring her into the hospital. By the time she got to the emergency room she these symptoms went away. She remains pain free at this time. In the ED, the patient did receive 243mg of Aspirin. She had a CXR done as well as an ECG. Her ECG does not have acute ST elevation. Her initial troponin I is negative, will get another Troponin I now as 3 hours after initial draw and 6 hours after symptom onset. She will be admitted to PCU for trending of her troponin and ECG. In general she follows Dr. Clarke, has noticed some increase swelling in her legs and was added on spironolactone every other day, which seems to improver her edema, but not back to normal when she gets up in the morning. She also sees Dr. Traylor for her chronic back pain and recently received a steroid injection on her right side. Her other pain in her shoulder is noted around her scapula and trapeziums and is firm with palpation consistent with muscle origin. There is minimal pain to her AC joint. Her left leg pain is into her quad and through her groin. This gets worse with her ambulating. Allergies Allergy/AdvReac Type Severity Reaction Status Date / Time hydrochlorothiazide Allergy Mild RASH Verified 11/01/20 11:28 nickel Allergy Mild ITCHING Verified 11/01/20 11:28 AND REDNESS TO SKIN Penicillins Allergy Mild YEAST Verified 11/01/20 11:28 INFECTION Home Medications Medication Instructions Recorded Confirmed Type levothyroxine 125 mcg PO QAM 10/05/18 11/01/20 History losartan 50 mg PO QAM 10/05/18 11/01/20 History gabapentin 300 mg PO BID 04/22/20 11/01/20 History aspirin 81 mg PO QAM #30 tab 05/15/20 11/01/20 Rx atorvastatin 40 mg PO QAM #30 tab 05/15/20 11/01/20 Rx clopidogrel 75 mg PO QAM #30 tab 05/15/20 11/01/20 Rx metoprolol succinate 50 mg PO QAM #30 tab 05/15/20 11/01/20 Rx methylcellulose (with sugar) oral 1 tbsp PO QAM g 08/23/20 11/01/20 History powder pantoprazole 40 mg tablet,delayed 40 mg PO DAILY PRN 08/23/20 11/01/20 History release polyethylene glycol 3350 17 17 g PO QAM g 08/23/20 11/01/20 History gram/dose oral powder spironolactone 25 mg tablet 25 mg PO Q2D #45 tab 08/23/20 11/01/20 Rx amlodipine [Norvasc] 5 mg PO QAM 09/20/20 11/01/20 History bisacodyl [Dulcolax (bisacodyl)] 10 mg PO HS 09/20/20 11/01/20 History Past Med/Surg History Medical History Back problem Emphysema lung GERD (gastroesophageal reflux disease) Hiatal hernia History of tachycardia HTN (hypertension) Hypothyroidism Lumbar stenosis with neurogenic claudication Non-STEMI (non-ST elevated myocardial infarction) 05/14/2020--had heart cath with 1 stent placement--on plavix daily--follows with Dr. Clarke Surgical History H/O foot surgery RT History of appendectomy History of cardiac cath 05/14/2020 @ [facility] with 1 stent placed History of colonoscopy History of esophagogastroduodenoscopy (EGD) Hx of Achilles tendon repair LEFT S/P epidural steroid injection (~05/11/20) S/P right coronary artery (RCA) stent placement (05/14/20) Family History No family history of adverse response to anesthesia Social History Smoking Status: Former smoker Smoking End Date: 2017; Second Hand Exposure: No; Do You Dip or Chew Tobacco: No; Tobacco Cessation Education Requested by Patient: No Hx Alcohol Use: Yes Alcohol type: hard liquor Hx Substance Use: No Preferred Language: Liberian Communication Ability: Effective System Designer Required: No Beliefs That Will Affect Care: None Current Living Situation: Spouse current occupational status: retired Other Information That Helps Us Care for You: No Feels Safe at Home: Yes Safety Concerns: Feels Safe At This Time Assistive Devices: Denture - Upper, Denture - Lower and Glasses Review of Systems Review of Systems: REVIEW OF SYSTEMS: Constitutional: No fever, sweats or chills Eyes: No diplopia, no worsening or blurred vision ENT: normal hearing, no trouble swallowing Respiratory: No cough, sputum, dyspnea at rest or on exertion Cardiovascular: (+) chest pain, tightness or No palpitations Abdomen: (+) nausea, NO vomiting, diarrhea or constipation Musculoskeletal: (+) back pain, joint pain, claudication pains,swelling Neurologic: No weakness, numbness/tingling, or balance problems Psychiatric: No anxiety or depression Skin: No rash or itch Physical Exam Physical Exam: PHYSICAL EXAM: General: awake, alert, no apparent distress Head: Normocephalic, atraumatic ENT: PERRL, EOMI, no pharyngeal exudate, mucous membranes moist Neuro: AAO x 3, speech clear and appropriate, strength intact bilaterally 5/5, sensation intact and equal all extremities and dermatomes, no pronator drift. Hypersensitive response to pain Chest: equal rise and fall of the chest, no accessory muscle use, no heaves or thrills, Clear to auscultation, on room air, Cardiac: no tightness or chest pain at present. Regular rate and rhythm, telemetry reviewed, skin warm dry, cap refill <3 seconds, peripheral pulses +2 no JVD, no murmur, trace edema to lower extremities. GI: NABS x 4 quadrants, soft, nontender to palpation, no rebound, guarding or tenderness : Spontaneously voiding, no pain, no CVA tenderness, Extremities: Normal inspection, no peripheral erythema, calfs nontender to palpation MSK: pain to posterior shoulder and trapezius with palpation, limited ROM, pain to left lef that comes from groin into her quad. Psych: Normal mood and affect Skin: no rash or erythema Results & Data Results & Data ([facility]) Vital Signs (Past 12 Hours) Vital Signs Temp Pulse Resp BP Pulse Ox 11/01/20 13:35 60 16 157/94 H 95 11/01/20 11:00 62 19 120/67 11/01/20 10:40 96 11/01/20 10:39 67 18 124/76 95 11/01/20 10:31 36.8 C 75 20 150/78 H 93 Laboratory Results Abnormal lab results 11/01/20 11/01/20 Range/Units 11:23 11:23 RDW Std Deviation 48.7 H (36.4-46.3) fL MPV 10.8 H (7.4-10.4) fL Neut # (Auto) 6.99 H (1.4-6.5) K/uL [place] # (Auto) 0.66 H (0.11-0.59) K/uL Chloride 114 H (98-107) mmol/L Glucose 112 H (70-99) mg/dl Diagnostic Findings Chest X-Ray 11/01/20 10:33 XR chest 1V portable HISTORY: Atypical Chest Pain COMPARISON: 05/13/2020. FINDINGS: No pneumothorax. No pleural effusions. The heart remains top normal in size. The lungs are clear. No evidence for pulmonary edema. No rib fractures identified. Degenerative changes again noted within the right shoulder. IMPRESSION: No acute process. Electronically signed by: Nikolai Sifuentes M.D. 11/01/2020 11:03 AM Medications Administered Discontinued Medications Aspirin (Aspirin Chew 324 Mg) 243 mg PO NOW STA Stop: 11/01/20 13:12 Last Admin: 11/01/20 13:33 Dose: 243 mg Documented by: [id number] Home Medications levothyroxine 125 mcg PO QAM 10/05/18 [History Confirmed 11/01/20] losartan 50 mg PO QAM 10/05/18 [History Confirmed 11/01/20] gabapentin 300 mg PO BID 11/06/20 [History Confirmed 11/01/20] aspirin 81 mg PO QAM #30 tab 05/15/20 [Rx Confirmed 11/01/20] atorvastatin 40 mg PO QAM #30 tab 05/15/20 [Rx Confirmed 11/01/20] clopidogrel 75 mg PO QAM #30 tab 05/15/20 [Rx Confirmed 11/01/20] metoprolol succinate 50 mg PO QAM #30 tab 05/15/20 [Rx Confirmed 11/01/20] methylcellulose (with sugar) oral powder 1 tbsp PO QAM g 08/23/20 [History Confirmed 11/01/20] pantoprazole 40 mg tablet,delayed release 40 mg PO DAILY PRN 08/23/20 [History Confirmed 11/01/20] polyethylene glycol 3350 17 gram/dose oral powder 17 g PO QAM g 08/23/20 [History Confirmed 11/01/20] spironolactone 25 mg tablet 25 mg PO Q2D #45 tab 08/23/20 [Rx Confirmed 11/01/20] amlodipine [Norvasc] 5 mg PO QAM 09/20/20 [History Confirmed 11/01/20] bisacodyl [Dulcolax (bisacodyl)] 10 mg PO HS 09/20/20 [History Confirmed 11/01/20] ECG Additional Comments: NSR When compared with ECG of 15-MAY-2020 06:40, T wave inversion more evident in Anterolateral leads QT has shortened Confirmed by Gabino Becerra ([id number]) on 11/01/2020 12:08:21 PM Code Status & VTE Plan Code Status CODE: FULL VTE: SCD's, Aspirin, Plavix, Ambulation VTE Prophylaxis Plan VTE Prophylaxis will be ordered: Yes Supervising Physician Co-Signing Physician Notes Patient was seen and examined independently I discussed the case with David PHELPS I reviewed pertinent past medical social family history and also the plan of care and agree with the plan of care. Patient is been having various somatic aches and pains over the last 2 days on 11/01/20 when she called to talk to her physician was told he was not available she became angry and subsequently had substernal chest pressure with radiation to her shoulder and jaw. Says it felt like a lead blanket was lying on her chest. She then referred herself to the emergency department where she she has a previous history of an RCA stent in late 2019. In the ER should her symptoms are resolved her EKG is some minor changes however with her pretest probability being high with previous coronary disease her description of chest pressure is felt peña to keep her for observation and discuss with cardiology whether to consider a stress test to restratify or whether this is concerning enough to pursue further interventional studies Her cardiac exam is regular with a systolic murmur her lungs are clear without wheezes or crackles Extremities are without edema at this point time Chest wall is without reproducible pain She will be on telemetry she will have repeat EKGs and troponin serology. She was instructed to notify the nurse if she has recurrence of any symptoms she is maintained on dual antiplatelet therapy. Any exceptions will be noted below PG Care Time/CCT Total # of Minutes Spent Total Time Spent with Patient: Total time spent is greater than 50% in coordination of care (as documented) at patient's floor/unit and/or counseling patient: Coding Level of Care Code 47349 Initial Inpt Care Lvl 3 Diagnoses Chest pain R07.9 Chest pain type: unspecified CAD (coronary artery disease) I25.119 Associated angina: with unspecified form of angina Coronary Disease-Associated Artery/Lesion type: [place] artery [place] vs. transplanted heart: [place] heart Arterial disease I77.9 Renal artery stenosis I70.1 Carotid artery stenosis I65.23 Laterality: bilateral GERD (gastroesophageal reflux disease) K21.9 Esophagitis presence: without esophagitis Hypothyroidism E03.9 Hypothyroidism type: unspecified HTN (hypertension) I10 Hypertension type: essential hypertension Lumbar stenosis with neurogenic claudication M48.062 Emphysema lung J43.9 Emphysema type: unspecified (1) Carotid artery stenosis Laterality: bilateral Qualified Code(s): I65.23 - Occlusion and stenosis of bilateral carotid arteries (2) CAD (coronary artery disease) Associated angina: with unspecified form of angina Coronary Disease- Associated Artery/Lesion type: [place] artery [place] vs. transplanted heart: [place] heart Qualified Code(s): I25.119 - Atherosclerotic heart disease of [place] coronary artery with unspecified angina pectoris (3) Hypothyroidism Hypothyroidism type: unspecified Qualified Code(s): E03.9 - Hypothyroidism, unspecified (4) Emphysema lung Emphysema type: unspecified Qualified Code(s): J43.9 - Emphysema, unspecified (5) GERD (gastroesophageal reflux disease) Esophagitis presence: without esophagitis Qualified Code(s): K21.9 - Gastro- esophageal reflux disease without esophagitis (6) Chest pain Chest pain type: unspecified Qualified Code(s): R07.9 - Chest pain, unspecified (7) HTN (hypertension) Hypertension type: essential hypertension Qualified Code(s): I10 - Essential (primary) hypertension
[2020-11-01 16:49] LABS: Partial Thromboplastin Ratio 0.9; Partial Thromboplastin Time 22.9 Seconds (21.0-31.0)
--- NOTE | 2020-11-01 17:08 | XCELERA ---
[id number]
[2020-11-01] MEDS ORDERED: ACETAMINOPHEN 325 MG TAB PO PRN (18:08)
[2020-11-01] MEDS ORDERED: PANTOprazole 40 MG TAB PO PRN (18:08)
[2020-11-01] MEDS ORDERED: ONDANSETRON INJ 2 MG/ML 2 ML VIAL IV PRN (18:08)
[2020-11-01] MEDS: GABAPENTIN 300 MG CAP PO SCH (20:21)
[2020-11-01] MEDS ORDERED: LIDOCAINE 5% 1 PATCH TD SCH (20:45)
[2020-11-01] MEDS ORDERED: bisacodyL 5 MG TABEC PO SCH (21:00)
[2020-11-02 06:27] LABS: Basophils # (auto) 0.03 K/uL (0-0.2); Basophils % (auto) 0.4 %; Eosinophils # (auto) 0.18 K/uL (0-0.5); Eosinophils % (auto) 2.3 %; Hematocrit (blood only) 42.2 % (37-47); Hemoglobin 13.9 g/dL (12.0-16.0); Immature Granulocytes # (auto) 0.01 K/uL (0.00-0.02); Immature Granulocytes % (auto) 0.1 %; Lymphocytes # (auto) 1.47 K/uL (1.2-3.4); Lymphocytes % (auto) 18.7 %; Mean Corpuscular Hemoglobin 29.9 pg (25-34); Mean Corpuscular Hgb Conc 32.9 g/dL (32-36); Mean Corpuscular Volume 90.8 fL (80-100); Mean Platelet Volume 11.1 fL (7.4-10.4); Monocytes # (auto) 0.73 K/uL (0.11-0.59); Monocytes % (auto) 9.3 %; Neutrophils # (auto) 5.43 K/uL (1.4-6.5); Neutrophils % (auto) 69.2 %; Platelet Count 254 K/uL (130-400); RDW Coefficient of Variation 14.5 % (11.5-14.5); Red Blood Count 4.65 M/uL (4.2-5.4); White Blood Count 7.85 K/uL (4.8-10.8)
[2020-11-02] MEDS ORDERED: LEVOTHYROXINE SODIUM 125 MCG TABLET PO SCH (06:30)
[2020-11-02 07:01] LABS: BUN Creatinine Ratio 14.2 (10-20); Creatinine Clr Calc Pharmacy 41.1 ml/min; Est GFR (Non-African American) 39.7 ml/min; Magnesium 2.3 mg/dl (1.8-2.4); Potassium 4.1 mmol/L (3.5-5.1)
[2020-11-02] MEDS ORDERED: ATORVASTATIN 40 MG TAB PO SCH (09:00)
[2020-11-02] MEDS ORDERED: METOPROLOL SUCC 50MG EXT REL TAB PO SCH (09:00)
[2020-11-02] MEDS ORDERED: ASPIRIN 81 MG ECTAB PO SCH (09:00)
[2020-11-02] MEDS ORDERED: LIDOCAINE 5% 1 PATCH TD SCH ×2 (09:00→21:00)
[2020-11-02] MEDS ORDERED: POLYETHYLENE (MIRALAX) 17 GM PACK PO SCH (09:00)
[2020-11-02] MEDS ORDERED: CLOPIDOGREL BISULFATE 75 MG TAB PO SCH (09:00)
[2020-11-02] MEDS ORDERED: amLODIPine BESYLATE 5 MG TAB PO SCH (09:00)
[2020-11-02] MEDS ORDERED: LOSARTAN POTASSIUM 50 MG TAB PO SCH (09:00)
[2020-11-02] MEDS ORDERED: DOBUTamine HCL 12.5 MG/ML 20 ML VIAL IV ONE (09:48)
[2020-11-02] MEDS ORDERED: METOPROLOL TARTRATE 1 MG/ML VIAL IV ONE (09:48)
[2020-11-02] MEDS ORDERED: ATROPINE SULFATE 0.1 MG/ML 10ML SYR IV ONE (09:48)
--- NOTE | 2020-11-02 10:41 | Cardiology Consultation ---
Date of Consultation November 02, 2020 Assessment & Plan (1) Chest pain: Prescription of chest pain is certainly concerning for cardiac ischemia. Also possibly a stress reaction with elevated vagal tone. She had some other symptoms of high vagal tone which includes some nausea. Her symptoms lasted at least 20 minutes and was no elevation in her cardiac biomarkers suggesting this is not likely cardiac ischemia. However, given her description of the symptoms and her history of coronary disease we did elect to proceed with dobutamine echocardiography. There were no high-risk features of her stress test. Do not think she requires any alteration in her medical regimen. She should continue aggressive secondary prevention of coronary disease with dual anti-platelet therapy, high-dose atorvastatin and metoprolol succinate. (2) CAD (coronary artery disease): Continue aggressive secondary prevention as noted above. She does not have symptoms at other times of coronary insufficiency or angina. History of Present Illness Reason for Consultation: Chest pain Requesting Physician: Yoselyn Attending Physician: Adia Daily MD History of Present Illness The patient is a 80-year-old woman with a history of coronary disease having suffered a non ST elevation myocardial infarction in April of 2020. At that time she underwent percutaneous intervention to the right coronary artery was noted to have nonobstructive disease in the remaining distributions. This is a yesterday she became emotionally upset and began to experience symptoms of chest pressure. She describes this as a elephant on my chest. This also involved a sense of neck and jaw discomfort. These symptoms did not respond to rest or relaxation and she was brought to the emergency room for evaluation. She states that in route her symptoms had improved and by the time she got to the emergency room she felt as if a heavy blanket was on top of her. I think she takes this to mean she was very tired and fatigued. The duration of her symptoms was estimated at 20 minutes. Was associated with some mild nausea. She did not have diaphoresis. She did not have emesis. She describes the symptoms as markedly different than that which caused her presentation in April. She is otherwise an active individual who participates in a pool exercises. She did not report symptoms of exertional dyspnea or chest discomfort with exercise. Recently she has been limited by joint discomfort. In fact, her main concern appears to be pain in the left shoulder, right hip and left groin areas. Allergies Allergy/AdvReac Type Severity Reaction Status Date / Time hydrochlorothiazide Allergy Mild RASH Verified 11/01/20 11:28 nickel Allergy Mild ITCHING Verified 11/01/20 11:28 AND REDNESS TO SKIN Penicillins Allergy Mild YEAST Verified 11/01/20 11:28 INFECTION Home Medications Medication Instructions Recorded Confirmed Type levothyroxine 125 mcg PO QAM 10/05/18 11/01/20 History losartan 50 mg PO QAM 10/05/18 11/01/20 History gabapentin 300 mg PO BID 04/22/20 11/01/20 History aspirin 81 mg PO QAM #30 tab 05/15/20 11/01/20 Rx atorvastatin 40 mg PO QAM #30 tab 05/15/20 11/01/20 Rx clopidogrel 75 mg PO QAM #30 tab 05/15/20 11/01/20 Rx metoprolol succinate 50 mg PO QAM #30 tab 05/15/20 11/01/20 Rx methylcellulose (with sugar) oral 1 tbsp PO QAM g 08/23/20 11/01/20 History powder pantoprazole 40 mg tablet,delayed 40 mg PO DAILY PRN 08/23/20 11/01/20 History release polyethylene glycol 3350 17 17 g PO QAM g 08/23/20 11/01/20 History gram/dose oral powder spironolactone 25 mg tablet 25 mg PO Q2D #45 tab 08/23/20 11/01/20 Rx amlodipine [Norvasc] 5 mg PO QAM 09/20/20 11/01/20 History bisacodyl [Dulcolax (bisacodyl)] 10 mg PO HS 09/20/20 11/01/20 History Patient History Medical History Back problem Emphysema lung GERD (gastroesophageal reflux disease) Hiatal hernia History of tachycardia HTN (hypertension) Hypothyroidism Lumbar stenosis with neurogenic claudication Non-STEMI (non-ST elevated myocardial infarction) 05/14/2020--had heart cath with 1 stent placement--on plavix daily--follows with Dr. Clarke Surgical History H/O foot surgery RT History of appendectomy History of cardiac cath 05/14/2020 @ [facility] with 1 stent placed History of colonoscopy History of esophagogastroduodenoscopy (EGD) Hx of Achilles tendon repair LEFT S/P epidural steroid injection (~05/11/20) S/P right coronary artery (RCA) stent placement (05/14/20) Family History Other No family history of adverse response to anesthesia Social History Smoking Status: Former smoker Smoking End Date: 2017; Second Hand Exposure: No; Do You Dip or Chew Tobacco: No; Tobacco Cessation Education Requested by Patient: No Hx Alcohol Use: Yes Alcohol type: hard liquor Hx Substance Use: No Preferred Language: Malay Communication Ability: Effective School Janitor Required: No Beliefs That Will Affect Care: None Current Living Situation: Spouse current occupational status: retired Other Information That Helps Us Care for You: No Feels Safe at Home: Yes Safety Concerns: Feels Safe At This Time Assistive Devices: None Review of Systems Review of Systems: Per HPI Physical Exam Physical Exam: She is alert and oriented x3. Mood affect appear normal. She answered all questions appropriately. HEENT: Sclerae are anicteric. Pupils are equal and reactive to light and accommodation. Extraocular movements were intact. Neuro: Cranial nerves intact Neck: Examination of the submandibular region did not reveal any significant lymphadenopathy. Carotids are palpable bilaterally and free of bruits on auscultation. There was no evidence of jugular venous distention. The thyroid was not enlarged. Lungs: Lungs are clear to auscultation bilaterally. There are no rales wheezes or rhonchi. She has normal respiratory effort without use of accessory muscles. There is normal pulmonary excursion. Cardiac: The rhythm was regular. S1 and S2 were normal. There are no murmurs on examination. The PMI was not markedly displaced on palpation. Abdomen: The abdomen was soft and nontender. Extremities: Patient has bilateral radial pulses that are equal in intensity. There is no evidence cyanosis or clubbing. There was no evidence of significant peripheral edema bilaterally. Skin: There are no rashes noted on examination today. Results & Data ([facility]) Vital Signs (Past 12 Hours) Vital Signs Temp Pulse Pulse Resp BP Pulse Ox 11/02/20 08:00 64 11/02/20 07:22 36.5 C 78 18 141/82 H 92 11/02/20 04:00 36.7 C 75 15 118/72 94 11/02/20 00:00 64 11/01/20 23:21 37.0 C 65 13 128/58 L 91 Laboratory Results Abnormal Lab Results 11/01/20 11/01/20 11/01/20 11:23 11:23 11:23 WBC 9.34 RBC 4.59 Hgb 14.0 Hct 42.0 MCV 91.5 MCH 30.5 MCHC 33.3 RDW Std Deviation 48.7 H RDW Coeff of Madelin 14.5 Plt Count 276 MPV 10.8 H Immature Gran % (Auto) 0.2 Neut % (Auto) 74.8 Lymph % (Auto) 16.1 [place] % (Auto) 7.1 Eos % (Auto) 1.5 Baso % (Auto) 0.3 Neut # (Auto) 6.99 H Lymph # (Auto) 1.50 [place] # (Auto) 0.66 H Eos # (Auto) 0.14 Baso # (Auto) 0.03 Immature Gran # (Auto) 0.02 PT INR APTT PTT Ratio Sodium 143 Potassium 3.7 Chloride 114 H Carbon Dioxide 24 Anion Gap 5.0 BUN 15 Creatinine 1.00 Est Cr Clr Drug Dosing 52.8 Est GFR ( Amer) 62.1 Est GFR (Non-Af Amer) 53.5 BUN/Creatinine Ratio 15.4 Glucose 112 H Calcium 8.9 Magnesium Total Bilirubin 0.4 AST 16 ALT 34 Alkaline Phosphatase 90 Troponin I < 0.015 Total Protein 6.9 Albumin 3.4 Globulin 3.5 Albumin/Globulin Ratio 1.0 Triglycerides Cholesterol LDL Cholesterol, Calc VLDL Cholesterol, Calc HDL Cholesterol Cholesterol/HDL Ratio Lipase 111 COVID-19 Eval Order Covid19 at [facility] SARS-CoV-2 (PCR) 11/01/20 11/01/20 11/01/20 11:23 14:31 14:31 WBC RBC Hgb Hct MCV MCH MCHC RDW Std Deviation RDW Coeff of [place]elin Plt Count MPV Immature Gran % (Auto) Neut % (Auto) Lymph % (Auto) [place] % (Auto) Eos % (Auto) Baso % (Auto) Neut # (Auto) Lymph # (Auto) [place] # (Auto) Eos # (Auto) Baso # (Auto) Immature Gran # (Auto) PT Cancelled INR Cancelled APTT Cancelled PTT Ratio Cancelled Sodium Potassium Chloride Carbon Dioxide Anion Gap BUN Creatinine Est Cr Clr Drug Dosing Est GFR ( Amer) Est GFR (Non-Af Amer) BUN/Creatinine Ratio Glucose Calcium Magnesium Total Bilirubin AST ALT Alkaline Phosphatase Troponin I < 0.015 Total Protein Albumin Globulin Albumin/Globulin Ratio Triglycerides Cholesterol LDL Cholesterol, Calc VLDL Cholesterol, Calc HDL Cholesterol Cholesterol/HDL Ratio Lipase COVID-19 Eval Order SARS-CoV-2 (PCR) NEGATIVE 11/01/20 11/01/20 11/01/20 16:26 20:06 23:51 WBC RBC Hgb Hct MCV MCH MCHC RDW Std Deviation RDW Coeff of Madelin Plt Count MPV Immature Gran % (Auto) Neut % (Auto) Lymph % (Auto) [place] % (Auto) Eos % (Auto) Baso % (Auto) Neut # (Auto) Lymph # (Auto) [place] # (Auto) Eos # (Auto) Baso # (Auto) Immature Gran # (Auto) PT 10.0 INR 1.0 APTT 22.9 PTT Ratio 0.9 Sodium Potassium Chloride Carbon Dioxide Anion Gap BUN Creatinine Est Cr Clr Drug Dosing Est GFR ( Amer) Est GFR (Non-Af Amer) BUN/Creatinine Ratio Glucose Calcium Magnesium Total Bilirubin AST ALT Alkaline Phosphatase Troponin I < 0.015 < 0.015 Total Protein Albumin Globulin Albumin/Globulin Ratio Triglycerides Cholesterol LDL Cholesterol, Calc VLDL Cholesterol, Calc HDL Cholesterol Cholesterol/HDL Ratio Lipase COVID-19 Eval Order SARS-CoV-2 (PCR) 11/02/20 11/02/20 06:05 06:05 WBC 7.85 RBC 4.65 Hgb 13.9 Hct 42.2 MCV 90.8 MCH 29.9 MCHC 32.9 RDW Std Deviation 48.0 H RDW Coeff of [place] 14.5 Plt Count 254 MPV 11.1 H Immature Gran % (Auto) 0.1 Neut % (Auto) 69.2 Lymph % (Auto) 18.7 [place] % (Auto) 9.3 Eos % (Auto) 2.3 Baso % (Auto) 0.4 Neut # (Auto) 5.43 Lymph # (Auto) 1.47 [place] # (Auto) 0.73 H Eos # (Auto) 0.18 Baso # (Auto) 0.03 Immature Gran # (Auto) 0.01 PT INR APTT PTT Ratio Sodium 144 Potassium 4.1 Chloride 113 H Carbon Dioxide 27 Anion Gap 4.0 BUN 18 Creatinine 1.28 H Est Cr Clr Drug Dosing 41.1 Est GFR ( Amer) 46.0 Est GFR (Non-Af Amer) 39.7 BUN/Creatinine Ratio 14.2 Glucose 127 H Calcium 9.0 Magnesium 2.3 Total Bilirubin AST ALT Alkaline Phosphatase Troponin I Total Protein Albumin Globulin Albumin/Globulin Ratio Triglycerides 125 Cholesterol 124 LDL Cholesterol, Calc 53 VLDL Cholesterol, Calc 25 HDL Cholesterol 46 Cholesterol/HDL Ratio 3 Lipase COVID-19 Eval Order SARS-CoV-2 (PCR) Diagnostic Findings A chest x-ray was obtained the time admission which did not reveal any acute cardiopulmonary process of PG Care Time/CCT Total # of Minutes Spent Total Time Spent with Patient: Total time spent is greater than 50% in coordination of care (as documented) at patient's floor/unit and/or counseling patient: Coding Level of Care Code 79526 Initial Inpt Care Lvl 3 Diagnoses Chest pain R07.9 Chest pain type: unspecified CAD (coronary artery disease) I25.119 Coronary Disease-Associated Artery/Lesion type: [place] artery [place] vs. transplanted heart: [place] heart Associated angina: with unspecified form of angina (1) Chest pain Chest pain type: unspecified Qualified Code(s): R07.9 - Chest pain, unspecified (2) CAD (coronary artery disease) Coronary Disease-Associated Artery/Lesion type: [place] artery [place] vs. transplanted heart: [place] heart Associated angina: with unspecified form of angina Qualified Code(s): I25.119 - Atherosclerotic heart disease of [place] coronary artery with unspecified angina pectoris
[2020-11-02] MEDS: GABAPENTIN 300 MG CAP PO SCH (11:03)
--- NOTE | 2020-11-02 11:15 | XCELERA ---
[id number]
--- NOTE | 2020-11-02 12:48 | Electrocardiogram Report ---
Test Reason : Blood Pressure : / mmHG Vent. Rate : 069 BPM Atrial Rate : 069 BPM P-R Int : 148 ms QRS Dur : 084 ms QT Int : 386 ms P-R-T Axes : 046 016 113 degrees QTc Int : 413 ms Normal sinus rhythm Possible Inferior infarct , age undetermined T wave abnormality, consider lateral ischemia Abnormal ECG When compared with ECG of 01-NOV-2020 10:38, No significant change was found Confirmed by Gabino Becerra ([id number]) on 11/02/2020 12:47:57 PM Referred By: REFERRED SELF Confirmed By:Rayo Becerra
--- NOTE | 2020-11-02 12:50 | Electrocardiogram Report ---
Test Reason : Blood Pressure : / mmHG Vent. Rate : 071 BPM Atrial Rate : 071 BPM P-R Int : 152 ms QRS Dur : 084 ms QT Int : 376 ms P-R-T Axes : 061 036 120 degrees QTc Int : 408 ms Normal sinus rhythm T wave abnormality, consider lateral ischemia Abnormal ECG When compared with ECG of 01-NOV-2020 23:55, (unconfirmed) No significant change was found Confirmed by Gabino Becerra ([id number]) on 11/02/2020 12:49:56 PM Referred By: REFERRED SELF Confirmed By:Rayo Becerra
--- NOTE | 2020-11-02 12:50 | Electrocardiogram Report ---
Test Reason : Blood Pressure : / mmHG Vent. Rate : 070 BPM Atrial Rate : 070 BPM P-R Int : 150 ms QRS Dur : 088 ms QT Int : 396 ms P-R-T Axes : 040 047 113 degrees QTc Int : 427 ms Normal sinus rhythm with sinus arrhythmia T wave abnormality, consider lateral ischemia Abnormal ECG When compared with ECG of 01-NOV-2020 19:54, (unconfirmed) Borderline criteria for Inferior infarct are no longer Present Confirmed by Gabino Becerra ([id number]) on 11/02/2020 12:49:50 PM Referred By: REFERRED SELF Confirmed By:Rayo Becerra
--- NOTE | 2020-11-02 15:14 | XRay Report ---
XR hip LT min 2V CLINICAL HISTORY: Acute left hip pain. COMPARISON: CTA of the abdomen and pelvis October 05, 2018. FINDINGS: Alignment of the left hip is anatomic. There is no acute fracture. No osseous lesion is no suzy. There is no evidence for avascular necrosis. Left hip joint space is preserved. Irregularity of the left ischial tuberosity is chronic. IMPRESSION: No significant abnormality of the left hip. No fracture. ACT 112: Negative or not required by law. Electronically signed by: Chino Hewitt M.D. 11/02/2020 3:13 PM
[2020-11-02] MEDS ORDERED: DICLOFENAC SOD 1% GEL 100 GM TUBE EXT SCH (15:15)
--- NOTE | 2020-11-02 16:22 | Discharge Summary ---
Date of Service November 02, 2020 Admission HPI Per Admitting Provider 80 YOF with past medical history of NSTEMI in April with RCA stent on DAPT therapy, Obesity, HTN, HLD, Osteoarthritis, lumbar/sacral stenosis, and hypothyroidism, bilateral carotid artery stenosis, and PAD. Patient comes in today for complaints of chest tightness with radiation up to her throat and across her left chest. The pain started this morning after she was on the phone with her PCP office. She originally called the PCP office for her left shoulder pain and left groin/thigh pain. She has been experiencing worsening pain and decreased motion of her left shoulder and was not controlled with her home re gimen. After being told she could not get in to see her PCP until November she got irritated and after hanging up the phone this was about 0900. She started with chest tightness described as someone squeezing her. The tightness went across her left chest and up into her neck. This was associated with nausea and mild shortness of breath. This did not go away so she had her bring her into the hospital. By the time she got to the emergency room she these symptoms went away. She remains pain free at this time. In the ED, the patient did receive 243mg of Aspirin. She had a CXR done as well as an ECG. Her ECG does not have acute ST elevation. Her initial troponin I is negative, will get another Troponin I now as 3 hours after initial draw and 6 hours after symptom onset. She will be admitted to PCU for trending of her troponin and ECG. In general she follows Dr. Clarke, has noticed some increase swelling in her legs and was added on spironolactone every other day, which seems to improver her edema, but not back to normal when she gets up in the morning. She also sees Dr. Traylor for her chronic back pain and recently received a steroid injection on her right side. Her other pain in her shoulder is noted around her scapula and trapeziums and is firm with palpation consistent with muscle origin. There is minimal pain to her AC joint. Her left leg pain is into her quad and through her groin. This gets worse with her ambulating. Principal Diagnosis Chest [id number] Left shoulder pain, Left hip pain Discharge Exam Constitutional WD/WN, vitals as above Eyes PERRL, conjunctivae normal, anicteric sclerae ENMT external ear and nose normal, oropharynx normal Neck trachea midline, no thyromegaly Respiratory normal respiratory effort, lungs clear to auscultation Cardiovascular RRR, no murmur, no edema Chest (Breasts) Chest: normal inspection of chest Gastrointestinal (Abdomen) normal bowel sounds, soft, nontender, no hepatosplenomegaly Musculoskeletal Extremities: no cyanosis and no clubbing LEFT SHoulder: ROM limited both passively and actively due to pain and weakness with flexion and abduction; +TTP over left trapezius and posterior shoulder LEFT Hip: + pain with passive and active ROM especially with flexion and internal rotation, no TTP over greater trochanter, no mass palpable in inguinal region, no erythema, neg log roll test. Strength in LEs 5/5 throughout Skin no rashes, warm and dry Neurologic moves all extremities and awake; no focal motor deficits Psychiatric A+Ox3, euthymic affect Lymphatic no lymphedema Discharge Data Allergies Allergy/AdvReac Type Severity Reaction Status Date / Time hydrochlorothiazide Allergy Mild RASH Verified 11/01/20 11:28 nickel Allergy Mild ITCHING Verified 11/01/20 11:28 AND REDNESS TO SKIN Penicillins Allergy Mild YEAST Verified 11/01/20 11:28 INFECTION Consultations 11/01/20 14:51 ED Decision to Admit Stat 11/01/20 18:08 Consult Cardiology Routine Ordered Studies Chest X-Ray 11/01/20 10:33 XR chest 1V portable HISTORY: Atypical Chest Pain COMPARISON: 05/13/2020. FINDINGS: No pneumothorax. No pleural effusions. The heart remains top normal in size. The lungs are clear. No evidence for pulmonary edema. No rib fractures identified. Degenerative changes again noted within the right shoulder. IMPRESSION: No acute process. ACT 112: Negative or not required by law. Electronically signed by: Nikolai Sifuentes M.D. 11/01/2020 11:03 AM Hip X-Ray 11/02/20 14:34 XR hip LT min 2V CLINICAL HISTORY: Acute left hip pain. COMPARISON: CTA of the abdomen and pelvis October 05, 2018. FINDINGS: Alignment of the left hip is anatomic. There is no acute fracture. No osseous lesion is noted. There is no evidence for avascular necrosis. Left hip joint space is preserved. Irregularity of the left ischial tuberosity is chronic. IMPRESSION: No significant abnormality of the left hip. No fracture. ACT 112: Negative or not required by law. Electronically signed by: Chino Hewitt M.D. 11/02/2020 3:13 PM ECHO-normal Dobutamine Stress ECHO-negative for inducible ischemia Hospital Course (1) Chest pain: 80 YOF s/p RCA stent in April with short lived chest tightness prior to arrival Serial troponin negative x 4 ECHO and Stress dobuatamine ECHO normal APpreciate Cardiology consultation given abnormal resting ECG with TWI anterior leads Remained pain free throughout hospitalization Reports increased stress lately--> may be GI related advised 2 weeks of daily PPI after discharge - Continue ASA - Continue Atorvastatin 40 mg - Continue DAPT- is on year long DAPT until April - Continue Metoprolol 50 (2) CAD (coronary artery disease): Patient with RCA stent in 2018 - non occlusive disease to the LAD 30%, 20-30% D1, 20% Circ, 50% Om1 at that time - as above appropriate medication management (3) Arterial disease: Vasculopath patient with vascular workup performed in 2019 to include CTA of aorta with runoff, Venous Doppler, carotid Doppler - . No evidence for abdominal aortic aneurysm or dissection. There is mild multifocal narrowing within the abdominal aorta and iliac arteries without high- grade stenosis or occlusion. 2. Moderate to severe stenosis within the proximal superior mesenteric artery and within the proximal right renal artery. 3. Multifocal high-grade stenosis with short segment occlusions within the mid right anterior tibial artery with distal reconstitution. This results in the attenuated flow within the right dorsalis pedis artery. 4. There is 3 vessel runoff within the left calf. her pain that she is experiencing in her legs is likely claudication with her arterial disease, her ambulation has decreased secondary to this, so likely not having benefit from walking plan. Has weak pulse right foot, strong on left. With claudication symptoms Advised continued exercise as tolerates continue with statin, aspirin, Plavix Advised f/u with Interventional Cardiology as outpt, Dr. Rg. May need repeat workup as has been 2 years since last angiogram (4) Renal artery stenosis: Moderate to severe stenosis of proximal right renal artery (2019) - Continue BP control - Continue statin - stable renal function and BP - (5) Carotid artery stenosis: - No neurological symptoms continue DAPT, statin (6) GERD (gastroesophageal reflux disease): Continue pantoprazole 40 daily while on DAPT (7) Hypothyroidism: Continue synthroid TSH normal in 05/2020 (8) HTN (hypertension): BP controlled continue amlodipine, aldactone, metoprolol, losartan (9) Lumbar stenosis with neurogenic claudication: Continue tylenol and walking - Pt/OT (10) Emphysema lung: Patient seen in 2019- declined inhalers at that time - asymptomatic no acute needs (11) Left shoulder pain: seems to be MSK in nature for the last month, likely rotator cuff tendonitis with impingement syndrome, subacromial bursitis advised outpt f/u with Ortho started Voltaren gel in hospital (12) Left hip pain: more acute, ongoing for several days, worse with movement good distal pulses, no edema, no calf tenderness Left hip xray here done and is normal Seen by PT and able to get up and around 250 feet independently f/u with Ortho as outpt also could be ischial bursitis Dispo-pt stable for dc to home Total Time Total Time Spent Total Time Spent (In Minutes): 45 min Total Time Includes: Examination of the Patient, Discharge Planning, Medication Reconciliation and Communication With Other Providers (Cardiology) Discharge Plan Discharge Items Patient Disposition: Home - Self-Care Reason For Visit: CHEST PAIN Discharge Diagnosis: Chest pain-noncardiac Condition on Discharge: Good Activity: Resume your previous activity Non-emergency contact: Primary Care Provider, Surgeon and Technology Officer Call non-emergency contact if: you have any medication questions, your symptoms worsen, your pain is not controlled, your pain is worsening and your pain is unusual for you Follow-up/Referrals: Silvia Camargo CRNP [Nurse Practitioner] - 11/04/20 (Dr. Rich's office will call you to provide you with a time for your appointment time.) Odilon Rg MD [Physician] - (Please schedule an appointment with Dr. Rg to discuss your leg pains and arterial disease.) Black Knight MD [Surgeon] - (Please call [facility] to schedule an appointment to discuss your left shoulder and hip pain.) [facility] [Primary Care Provider] - Diet: Heart Healthy Addtl Attending Provider Instructions: You were admitted with chest pain that may have come from spasm of your esophagus and acid reflux. All the tests of your heart came out fine. Please take your antacid pill, pantoprazole, daily x 2 weeks. For your left hip and shoulder pain, please follow up with an Orthopedic Surgeon and you can apply the diclofenac gel to the shoulder 4 times a day. For your leg cramps with walking, please follow up with Dr. Rg of Interventional Cardiology to discuss any possible treatment options for this. Pending Studies at Discharge: No Stand-Alone Forms: My [facility] Medications and DC Order Prescriptions: New diclofenac sodium [Voltaren] 1 % Gel 2 g EXT QID Qty: 50 RF: 0 Continued polyethylene glycol 3350 [Miralax] 17 gram/dose powder 17 g PO QAM RF: 0 Citrucel (sucrose) Powder 1 tbsp PO QAM RF: 0 spironolactone 25 mg tablet 25 mg PO Q2D Qty: 45 RF: 2 losartan 50 mg tablet 50 mg PO QAM RF: 0 levothyroxine 125 mcg tablet 125 mcg PO QAM RF: 0 gabapentin 300 mg Capsule 300 mg PO BID RF: 0 atorvastatin 40 mg Tablet 40 mg PO QAM Qty: 30 RF: 0 metoprolol succinate 50 mg Tablet Extended Release 24 Hr 50 mg PO QAM Qty: 30 RF: 0 clopidogrel 75 mg Tablet 75 mg PO QAM Qty: 30 RF: 0 aspirin 81 mg Tablet,Delayed Release (Dr/Ec) 81 mg PO QAM Qty: 30 RF: 0 bisacodyl [Dulcolax (bisacodyl)] 5 mg Tablet,Delayed Release (Dr/Ec) 10 mg PO HS RF: 0 amlodipine [Norvasc] 5 mg tablet 5 mg PO QAM RF: 0 Changed pantoprazole 40 mg tablet,delayed release (DR/EC) 40 mg PO DAILY 14 Days Qty: 14 RF: 0 Discharge Orders: Discharge Order (Routine); Ordered 11/02/20 Ordered By: Adia Daily Admission Data Admit Date/Time: 11/01/20 14:50 Attending Provider: Adia Daily Admit Provider: Richard Topete [facility] Other Providers: Richard Topete ; Odilon Becerra Other Interventions: Discharge Summary Assessment (RN) Last Done: 11/02/20 16:27 Coding Level of Care Code D/C Day Management >30 mins Diagnoses Chest pain R07.9 Chest pain type: unspecified CAD (coronary artery disease) I25.119 Associated angina: with unspecified form of angina Coronary Disease-Associated Artery/Lesion type: [place] artery [place] vs. transplanted heart: [place]ell heart Arterial disease I77.9 Renal artery stenosis I70.1 Carotid artery stenosis I65.23 Laterality: bilateral GERD (gastroesophageal reflux disease) K21.9 Esophagitis presence: without esophagitis Hypothyroidism E03.9 Hypothyroidism type: unspecified HTN (hypertension) I10 Hypertension type: essential hypertension Lumbar stenosis with neurogenic claudication M48.062 Emphysema lung J43.9 Emphysema type: unspecified Left shoulder pain M25.512 Left hip pain M25.552
[2020-11-03] MEDS ORDERED: SPIRONOLACTONE 25 MG TAB PO SCH (09:00)
== END 2020-11-02 17:44 | disposition home or self-care (01) | DRG 313 ==
LOC: ED 10:29 → SUATTDRO 14:50 → INTOOBSV 14:50 → 2S 14:50

== ENCOUNTER 2021-12-20 11:55 | Observation (INO) ==
[2021-12-20 12:42] LABS: Basophils # (auto) 0.04 K/uL (0-0.2); Basophils % (auto) 0.5 %; Eosinophils # (auto) 0.12 K/uL (0-0.50); Eosinophils % (auto) 1.5 %; Hematocrit (blood only) 43.6 % (34.1-44.9); Hemoglobin 14.6 g/dl (12.0-16.0); Immature Granulocytes # (auto) 0.05 K/uL (0.00-0.02); Immature Granulocytes % (auto) 0.6 %; Lymphocytes # (auto) 1.43 K/uL (1.2-3.4); Lymphocytes % (auto) 17.4 %; Mean Corpuscular Hemoglobin 29.2 pg (25.0-34.0); Mean Corpuscular Hgb Conc 33.5 g/dL (32.0-36.0); Mean Corpuscular Volume 87.2 fL (80.0-100.0); Mean Platelet Volume 10.9 fL (9.4-12.3); Monocytes # (auto) 0.49 K/uL (0.24-0.82); Neutrophils # (auto) 6.07 K/uL (1.4-6.5); Platelet Count 280 K/uL (130-400); RDW Coefficient of Variation 14.6 % (11.5-14.5); RDW Standard Deviation 46.2 fL (36.4-46.3)
[2021-12-20 12:52] LABS: Partial Thromboplastin Ratio 0.9; Partial Thromboplastin Time 23.6 Seconds (21.0-31.0); Prothrombin Time 10.3 Seconds (9.0-12.0)
[2021-12-20 13:04] LABS: Albumin Globulin Ratio 1.4 (0.9-2); Albumin Level 4.4 gm/dl (3.4-5.0); BUN Creatinine Ratio 19.2 (10-20); Bilirubin,Total 0.7 mg/dl (0.2-1.0); Calcium 9.6 mg/dl (8.5-10.1); Creatinine Clr Calc Pharmacy 53.3 ml/min; Est GFR (African American) 62.4 ml/min; Est GFR (Non-African American) 53.8 ml/min; Globulin 3.1 gm/dl (2.5-4.0); Potassium 3.7 mmol/L (3.5-5.1); Total Protein 7.5 gm/dl (6.0-8.3)
[2021-12-20] MEDS ORDERED: ASPIRIN CHEW 324 MG PO STA (13:06)
--- NOTE | 2021-12-20 13:06 | Emergency Department Note ---
Impression & Plan Chest pain, HTN (hypertension), Abnormal ECG ED Provider Note NAME: ARNULFO FERRARA AGE: 81 SEX: F : 1940 ARRIVES VIA: Walk-In INFORMANT: Patient ED PROVIDER(S): Joaquin Gautam DO CHIEF COMPLAINT: Chest pain HPI: Patient is an 81-year-old female who presents to the ER for midsternal chest heaviness which started around 9 this morning and lasted for about 20 to 25 minutes. She denies any shortness of breath but admits to shoulder pain but the shoulder pain has been there for the past week. No belly pain, nausea, vomiting, or diarrhea. History of NSTEMI. She took nitro and her pain completely resolved. She went to her PCP and she had new flipped T waves and she was referred in. She did take her Plavix this morning. She has not taken a ny aspirin today. ROS: See above HPI for pertinent positives & negatives. A total of 10 systems reviewed and were otherwise negative. PAST MEDICAL HISTORY:See Below PAST SURGICAL HISTORY:See Below FAMILY HISTORY:See Below SOCIAL HISTORY:See Below HOME MEDICATIONS:See Below ALLERGIES:See Below VITALS:See Below PHYSICAL EXAMINATION: GENERAL: Sitting up in bed, alert, well appearing, well nourished, no distress, non-toxic EYE EXAM: normal conjunctiva. OROPHARYNX: no exudate, no erythema, lips, buccal mucosa, and tongue normal and mucous membranes are moist NECK: supple, no nuchal rigidity, no adenopathy, non-tender LUNGS: Clear to auscultation. Normal chest wall mechanics HEART: no murmurs, S1 normal and S2 normal ABDOMEN: abdomen soft, non-tender, normo-active bowel sounds, no masses, no r ebound or guarding. UPPER EXTREMITIES: upper extremities are grossly normal. LOWER EXTREMITIES: No pitting edema. NEURO EXAM: Normal sensorium, cranial nerves II-XII grossly intact, normal speech, no gross weakness of arms, no gross weakness of legs. MEDICAL DECISION MAKING: Patient is an 81-year-old female who presents the ER for the boasting complaint. She was referred in by her PCP after having chest pain and taking nitro and then obtaining an EKG which showed new T wave inversions. IV was established blood work was obtained. Labs show no significant leukocytosis or anemia. INR was unremarkable. BMP on LFTs bilirubin was unremarkable. Troponin was ne gative. COVID was negative. Upon review of her EKG did show worsening T wave inversions in the lateral leads from previous. She was still having some chest pain constantly she was placed on Nitropaste and placed on heparin drip after protracted conversation at bedside. Chest x-ray was unremarkable. She was placed on the heparin prior to the result of the troponin. This eventually resulted and was negative. Discussed with Dr. Cadet. He recommended stopping the heparin and they will follow from inpatient trend troponins. He felt the EKG was fairly similar to previous. Patient was updated bedside and admitted for further work-up. She denies any coughing up blood, vomiting blood, urinating blood, recent surgeries or previous head bleeds or any other bleeding risk factors. Triage Nursing notes reviewed. Limited review of prior medical records performed Vital Signs: reviewed and remarkable for no significant abnormalities Differential diagnosis: Differential diagnoses includes but is not limited to acute coronary syndrome, myocardial infarction, pericarditis, pulmonary embolus, aortic dissection, pneumonia, pneumothorax, musculoskeletal, shingles, esophageal. ER treatment provided: See below Diagnostics interpreted by me: ECG: Sinus rhythm rate of 67 Normal axis T wave inversion V1 through V6 with ST depressions in the lateral leads which is new from previous. Cardiac Monitoring: An order was placed for continuous cardiac monitoring. The monitor shows a rate of 70 with sinus rhythm. Laboratory studies: As stated above and show below. Imaging studies: AP upright 1 view the chest was unremarkable Consultation(s): This with Dr. Madhav Cadet and he recommended stopping the heparin and trending the bones as an inpatient Procedures: none Critical Care: None Past Med/Surg History Medical History Arterial disease Back problem Emphysema lung GERD (gastroesophageal reflux disease) Hiatal hernia History of DVT (deep vein thrombosis) RLE -- dx 1 mo ago -- on eliquis History of tachycardia HTN (hypertension) Hypothyroidism Lumbar radiculopathy Lumbar stenosis with neurogenic claudication Non-STEMI (non-ST elevated myocardial infarction) 05/14/2020--had heart cath with 1 stent placement--on plavix daily--follows with Dr. Clarke Surgical History H/O foot surgery RT History of appendectomy History of cardiac cath 05/14/2020 @ [facility] with 1 stent placed History of colonoscopy History of esophagogastroduodenoscopy (EGD) Hx of Achilles tendon repair LEFT S/P epidural steroid injection (~05/11/20) S/P right coronary artery (RCA) stent placement (05/14/20) Family History Other No family history of adverse response to anesthesia Social History Smoking Status: Former smoker Tobacco Type: Cigarettes Second Hand Exposure: No; Hx Alcohol Use: Yes Alcohol type: hard liquor Hx Substance Use: No Preferred Language: Slovak Communication Ability: Effective Caster Helper Required: No Beliefs That Will Affect Care: None Current Living Situation: Spouse current occupational status: retired Feels Safe at Home: Yes Assistive Devices: None Allergies Allergies Allergy/AdvReac Type Severity Reaction Status Date / Time hydrochlorothiazide Allergy Mild RASH Verified 12/20/21 16:12 nickel Allergy Mild ITCHING Verified 12/20/21 16:12 AND REDNESS TO SKIN Penicillins Allergy Mild YEAST Verified 12/20/21 16:12 INFECTION insect venom Allergy swelling Verified 12/20/21 16:13 atorvastatin AdvReac Intermediate Unknown Verified 12/20/21 16:12 Home Meds Home Medications Medication Instructions Recorded Confirmed levothyroxine 125 mcg tablet 125 mcg PO QAM 10/05/18 12/20/21 losartan 50 mg tablet 50 mg PO QAM 10/05/18 12/20/21 amlodipine 5 mg tablet (Norvasc) 5 mg PO QAM 09/20/20 12/20/21 bisacodyl 5 mg tablet,delayed 10 mg PO HS 09/20/20 12/20/21 release (Dulcolax (bisacodyl)) acetaminophen 650 mg 650 mg PO Q8H PRN 05/16/21 12/20/21 tablet,extended release (Tylenol Arthritis Pain) gabapentin 300 mg capsule 300 mg PO TID cap 05/16/21 12/20/21 metformin 500 mg tablet 500 mg PO BID 11/21/21 12/20/21 furosemide 20 mg tablet 20 - 40 mg PO DAILY 12/20/21 12/20/21 metformin 500 mg tablet 500 mg PO BID 12/20/21 12/20/21 Previous Rx's Medication Instructions Recorded nitroglycerin 0.4 mg sublingual 0.4 mg SUBLINGUAL Q5M PRN #25 tab 05/16/21 tablet pantoprazole 40 mg tablet,delayed 40 mg PO DAILY #90 tab 05/16/21 release metoprolol succinate 50 mg 50 mg PO QAM #90 tab 07/24/21 tablet,extended release 24 hr aspirin 81 mg tablet,delayed 81 mg PO DAILY #90 tab 11/21/21 release (Adult Low Dose Aspirin) Results & Data (ED) Vital Signs Vital Signs - 24 hr 12/20/21 12:08 12/20/21 13:02 12/20/21 13:32 Temperature 37.2 C Temperature Source Oral Pulse Rate 79 62 Pulse Rate [Apical] 75 63 Pulse Rate from SpO2 Sensor 64 Pulse Rhythm Regular Pulse Rhythm [Apical] Pulse Strength Normal Pulse Strength [Apical] Respiratory Rate 20 16 14 Respiratory Effort / Characteristics Non-Labored Spontaneous Non-Labored Spontaneous Non-Labored Spontaneous Respiratory Depth Normal Normal Normal Respiratory Pattern Regular Blood Pressure 142/101 H 168/89 H Blood Pressure [Right Arm] 188/99 H 168/89 H Blood Pressure Mean 114 115 Blood Pressure Mean [Right Arm] 128 115 Blood Pressure Position Sitting Blood Pressure Position [Right Arm] Lying Lying Pulse Oximetry 95 95 94 Oxygen Delivery Method Room Air Room Air Room Air Sepsis Recent Fever Within 48 Hours No Sepsis New/Unexplained Change in Mental Status N/A Sepsis Action Taken by Nursing No Action Required 12/20/21 14:00 12/20/21 15:14 12/20/21 15:30 Temperature Temperature Source Pulse Rate 62 62 61 Pulse Rate [Apical] 62 Pulse Rate from SpO2 Sensor 61 62 62 Pulse Rhythm Pulse Rhythm [Apical] Regular Pulse Strength Pulse Strength [Apical] Normal Respiratory Rate 20 19 19 Respiratory Effort / Characteristics Non-Labored Spontaneous Respiratory Depth Normal Respiratory Pattern Regular Blood Pressure 164/82 H 181/89 H 144/67 H Blood Pressure [Right Arm] 181/89 H Blood Pressure Mean 109 119 92 Blood Pressure Mean [Right Arm] 119 Blood Pressure Position Blood Pressure Position [Right Arm] Pulse Oximetry 92 95 92 Oxygen Delivery Method Sepsis Recent Fever Within 48 Hours Sepsis New/Unexplained Change in Mental Status Sepsis Action Taken by Nursing Laboratory Data Result diagrams: 12/20/21 12:24 12/20/21 12:24 Lab Results 12/20/21 12/20/21 12/20/21 Range/Units 12:24 12:24 12:24 WBC 8.20 (4.8-10.8) K/ul RBC 5.00 (3.93-5.22) M/uL Hgb 14.6 (12.0-16.0) g/dl Hct 43.6 (34.1-44.9) % MCV 87.2 (80.0-100.0) fL MCH 29.2 (25.0-34.0) pg MCHC 33.5 (32.0-36.0) g/dL RDW Std Deviation 46.2 (36.4-46.3) fL RDW Coeff of Madelin 14.6 H (11.5-14.5) % Plt Count 280 (130-400) K/uL MPV 10.9 (9.4-12.3) fL Immature Gran % (Auto) 0.6 % Neut % (Auto) 74.0 % Lymph % (Auto) 17.4 % [place] % (Auto) 6.0 % Eos % (Auto) 1.5 % Baso % (Auto) 0.5 % Neut # (Auto) 6.07 (1.4-6.5) K/uL Lymph # (Auto) 1.43 (1.2-3.4) K/uL [place] # (Auto) 0.49 (0.24-0.82) K/uL Eos # (Auto) 0.12 (0-0.50) K/uL Baso # (Auto) 0.04 (0-0.2) K/uL Immature Gran # (Auto) 0.05 H (0.00-0.02) K/uL PT 10.3 (9.0-12.0) Seconds INR 1.0 (0.9-1.1) APTT 23.6 (21.0-31.0) Seconds PTT Ratio 0.9 D-Dimer (0-500) ug/L FEU Sodium 139 (136-145) mmol/L Potassium 3.7 (3.5-5.1) mmol/L Chloride 104 (98-107) mmol/L Carbon Dioxide 27 (21-32) mmol/L Anion Gap 8 (3-11) BUN 19 (6-23) mg/dl Creatinine 0.99 (0.6-1.2) mg/dl Est Cr Clr Drug Dosing 53.3 ml/min Est GFR ( Amer) 62.4 ml/min Est GFR (Non-Af Amer) 53.8 ml/min BUN/Creatinine Ratio 19.2 (10-20) Glucose 138 H (70-99(Fasting)) mg/dl Calcium 9.6 (8.5-10.1) mg/dl Magnesium (1.7-2.4) mg/dl Total Bilirubin 0.7 (0.2-1.0) mg/dl AST 22 (13-39) U/L ALT 31 (7-52) U/L Alkaline Phosphatase 93 (34-104) U/L Troponin I High Sens 7.3 (0-14) pg/ml Total Protein 7.5 (6.0-8.3) gm/dl Albumin 4.4 (3.4-5.0) gm/dl Globulin 3.1 (2.5-4.0) gm/dl Albumin/Globulin Ratio 1.4 (0.9-2) 12/20/21 12/20/21 Range/Units 12:24 14:57 WBC (4.8-10.8) K/ul RBC (3.93-5.22) M/uL Hgb (12.0-16.0) g/dl Hct (34.1-44.9) % MCV (80.0-100.0) fL MCH (25.0-34.0) pg MCHC (32.0-36.0) g/dL RDW Std Deviation (36.4-46.3) fL RDW Coeff of Madelin (11.5-14.5) % Plt Count (130-400) K/uL MPV (9.4-12.3) fL Immature Gran % (Auto) % Neut % (Auto) % Lymph % (Auto) % [place] % (Auto) % Eos % (Auto) % Baso % (Auto) % Neut # (Auto) (1.4-6.5) K/uL Lymph # (Auto) (1.2-3.4) K/uL [place] # (Auto) (0.24-0.82) K/uL Eos # (Auto) (0-0.50) K/uL Baso # (Auto) (0-0.2) K/uL Immature Gran # (Auto) (0.00-0.02) K/uL PT (9.0-12.0) Seconds INR (0.9-1.1) APTT (21.0-31.0) Seconds PTT Ratio D-Dimer 760 H* (0-500) ug/L FEU Sodium (136-145) mmol/L Potassium (3.5-5.1) mmol/L Chloride (98-107) mmol/L Carbon Dioxide (21-32) mmol/L Anion Gap (3-11) BUN (6-23) mg/dl Creatinine (0.6-1.2) mg/dl Est Cr Clr Drug Dosing ml/min Est GFR ( Amer) ml/min Est GFR (Non-Af Amer) ml/min BUN/Creatinine Ratio (10-20) Glucose (70-99(Fasting)) mg/dl Calcium (8.5-10.1) mg/dl Magnesium 1.9 (1.7-2.4) mg/dl Total Bilirubin (0.2-1.0) mg/dl AST (13-39) U/L ALT (7-52) U/L Alkaline Phosphatase (34-104) U/L Troponin I High Sens 6.6 (0-14) pg/ml Total Protein (6.0-8.3) gm/dl Albumin (3.4-5.0) gm/dl Globulin (2.5-4.0) gm/dl Albumin/Globulin Ratio (0.9-2) Administered Medications Discontinued Medications Aspirin (Aspirin Chew 324 Mg) 324 mg PO NOW STA Stop: 12/20/21 13:07 Last Admin: 12/20/21 13:18 Dose: 324 mg Documented by: [id number] Heparin Sodium (Porcine) (Heparin Sod (Porcine) 1000 Unit/Ml) 4,000 units IV NOW ONE Stop: 12/20/21 13:25 Last Admin: 12/20/21 13:29 Dose: 4,000 units Documented by: [id number] Cosigned by: [id number] Heparin Sodium/Dextrose (Heparin Iv Adult Wt-Based Low-Dose With Bolus Protocol) 1 ea N/A NOW STA; Protocol Stop: 12/20/21 13:10 Last Admin: 12/20/21 13:29 Dose: 1 ea Documented by: [id number] Heparin Sodium/Dextrose (Heparin Sodium/Dextrose) 25,000 units in 500 mls @ 18 mls/hr IV .Q24H TWAN; Protocol Stop: 01/19/22 13:29 Last Titration: 12/20/21 13:59 Dose: 0 units/hr, 0 mls/hr Documented by: [id number] Cosigned by: [id number] Admin: 12/20/21 13:23 Dose: 900 units/hr, 18 mls/hr Documented by: [id number] Cosigned by: [id number] Miscellaneous Information (Nursing To Pharmacy Communication) 1 ea N/A TODAY TWAN Stop: 01/19/22 13:59 Last Admin: 12/20/21 15:51 Dose: 1 ea Documented by: [id number] Nitroglycerin (Nitroglycerin 2% Ointment 30gm Tube) 2 inch EXT Q6H TWAN Stop: 01/19/22 13:14 Last Admin: 12/20/21 13:17 Dose: 2 inch Documented by: [id number] Potassium Chloride (Potassium Chloride Crtab 20 Meq Tabcr) 40 meq PO NOW STA Stop: 12/20/21 14:25 Last Admin: 12/20/21 15:50 Dose: 40 meq Documented by: [id number] Imaging Data Radiologist's Impression: Chest X-Ray 12/20/21 12:13 XR chest 1V portable CLINICAL HISTORY: Atypical chest pain. COMPARISON STUDY: Chest radiograph November 01, 2020. FINDINGS: Lung volumes are normal. Lungs are clear. There is no pneumothorax or pleural effusion. Cardiac size is at the upper limits of normal and unchanged. Mediastinal contours are normal. There is no evidence for pulmonary edema. Minimal opacity along the left heart border is unchanged and favors epicardial fat pad or atelectasis IMPRESSION: No acute cardiopulmonary findings. No change in appearance of the chest. ACT 112: Negative or not required by law. Electronically signed by: hCino Hewitt M.D. 12/20/2021 1:25 PM Discharge Plan Visit Data Chief Complaint: Abnormal Labs/Diagnostic Testing Stated Complaint: REF BY , ABNORMAL LABS ED Provider: Joaquin Gautam Discharge Problem: Chest pain, HTN (hypertension), Abnormal ECG Patient Disposition: Admitted As Inpatient Discharge Instructions Interventions: ED Discharge Assessment Last Done: 12/20/21 17:51 Discharge Problem: Chest pain Qualifiers: Chest pain type: unspecified Qualified Code(s): R07.9 - Chest pain, unspecified HTN (hypertension) Qualifiers: Hypertension type: unspecified Qualified Code(s): I10 - Essential (primary) hypertension
[2021-12-20 13:09] LABS: Troponin I High Sensitivity 7.3 pg/ml (0-14)
[2021-12-20] MEDS ORDERED: Heparin IV Adult Wt-Based Low-Dose WITH Bolus Protocol STA (13:09)
[2021-12-20] MEDS ORDERED: NITROGLYCERIN 2% OINTMENT 30GM TUBE EXT SCH (13:15)
[2021-12-20] MEDS ORDERED: HEPARIN SOD (PORCINE) 1000 UNIT/ML IV ONE ×2 (13:24)
--- NOTE | 2021-12-20 13:26 | XRay Report ---
XR chest 1V portable CLINICAL HISTORY: Atypical chest pain. COMPARISON STUDY: Chest radiograph November 01, 2020. FINDINGS: Lung volumes are normal. Lungs are clear. There is no pneumothorax or pleural effusion. Car diac size is at the upper limits of normal and unchanged. Mediastinal contours are normal. There is n o evidence for pulmonary edema. Minimal opacity along the left heart border is unchanged and favors e picardial fat pad or atelectasis IMPRESSION: No acute cardiopulmonary findings. No change in appearance of the chest. ACT 112: Negative or not required by law. Electronically signed by: Chino Hewitt M.D. 12/20/2021 1:25 PM
[2021-12-20] MEDS ORDERED: HEPARIN SODIUM/DEXTROSE 25,000 UNITS/500 ML BAG IV SCH (13:30)
[2021-12-20] MEDS ORDERED: Nursing to Pharmacy Communication SCH (14:00)
--- NOTE | 2021-12-20 14:13 | History & Physical Report ---
Date of Service December 20, 2021 Assessment & Plan (1) Chest pain: Plan: - Differential at this point includes ACS versus GERD/anxiety. On presenting EKG, there are some EKG changes concerning for ACS, including ST segment abnormality in III and aVF, T wave inversions seen in multiple leads. I personally discussed EKG findings with Dr. Cadet, per his review of patient's previous EKGs, these changes have been seen before. Initial troponin 7.3, which was drawn 3 hours after onset of the chest pain. If this were cardiac in nature, we would expect this to be more elevated. As documented in the cardiac cardiology note from 11/21, she has had a recent occurrence of atypical chest symptoms which seem esophageal in origin. She does get relief from sublingual nitroglycerin and this is occurred both at rest and activity. Her episode today same chest pain she has been experiencing, no worse and no longer in duration. She is also very TTP in her epigastric region as well as along her chest wall. This event also occurred during a morning of high anxiety, which may be contributing. - Did received ASA 324 and nitro paste in ED, currently without any chest pain. - Trend troponin. If troponin continues to trend upward or chest pain returns, will repeat EKG and consider starting heparin. * Repeat trop lower than initial from 7.6--> 6.6, reassuring that chest pain from this AM is not cardiac in nature. No need to trend overnight. - Will order echo, consult cardiology. - K+ 3.7, order 40 mEq KCl with goal K+ >4.0. - Mg 1.9. (2) CAD (coronary artery disease): Plan: - S/p RCA stent in 2019 and negative stress echo in 2020. Previously on DAPT Plavix and aspirin, now just on aspirin 81 daily. - Continue aspirin, losartan, metoprolol, nitroglycerin as needed. - She is intolerant to statin, given LDL 53 on last lipid panel, likely not a candidate for PCSK9 injectable. - Occasionally has edema, prescribed Lasix, 20 mg to be taken if weight < 95 kg, 40 mg if weight >95 kg. - Follows with Dr. Clarke for cardiology and Dr. Rg for vascular. (3) Diabetes type 2, controlled: Plan: - On metformin 500 mg twice daily, will hold this while inpatient. Switch to Accu-Cheks ACHS with SSI as needed. - A1c in AM. - Patient expresses confusion over dietary restrictions given her diabetes, as well as heart disease in which she is told to avoid both sugar and salt. Does not know what she will eat if she cannot have any salt or any sugar. Will consult knotter hand for education on heart healthy/diabetic diet. (4) DVT prophylaxis: Plan: - Lovenox daily. - History of provoked DVT in November 2020 after hospitalization, was on Eliquis for 3 months without complications. - D dimer ordered to r/o VTE --> 760, age adjusted cut off is 800 and no concerning signs/symptoms for possible VTE, therefore defer further workup. (5) GERD (gastroesophageal reflux disease): Plan: - Continue pantoprazole, will also add on Carafate as of high suspicion chest pain is more so related to gastritis or reflux disease. - Does not appear patient has ever had an EGD in our system. Could consider GI consult while inpatient for EGD or order outpatient workup. (6) Hypothyroidism: Plan: - Continue levothyroxine 125 mcg daily. - TSH with AM labs. (7) HTN (hypertension): Plan: - Continue metoprolol 50 mg daily, losartan 50 mg daily, and amlodipine 5 mg daily. (8) Mood disorder: Plan: - During my visit with patient, she is mostly focused and bothered by how depressed and nervous she has felt over the past few months. She relates to me that her dog and had been attributing her low moods to this, however she is beginning to lose interest in activities and friendships, "hates the world ", frequently worries about how she will survive if something were to happen to her aging . Denies suicidal or homicidal ideation, however does say one point stated to me "maybe this is a heart attack and I will and it will all be over ". She relays multiple days where she feels panicked, then notices her heart racing out of control and sometimes brings on chest pain or sense of discomfort. -Therefore, we will place psych consult to see and evaluate patient while she is admitted. (9) Chronic pain of both shoulders: Plan: - Due to herniated neck disc, pain not worse or exacerbated with chest pain. - Lidocaine patch ordered prn. Plan: - Admit to med/telemetry. - SCDs, Lovenox for VTE ppx. - Ful Code. History of Present Illness Chief Complaint: Chest pain starting at 9 AM this morning Primary Care Provider: Altaf Cevallos DO Bessy Vick is an 81-year-old female with a past medical history significant for CAD s/p RCA stent in 2019, hypertension, hyperlipidemia, DM2, GE RD, and hypothyroidism who presents today with chest pain since 9am this morning. She was making her bed when she developed left sided chest painthat did radiate into her left throat/neck, but did not radiate elsewhere to shoulder/arm/jaw/back. She laid down and took a nitroglycerin which alleviated her pain, but does describe a lingering sensation of an elephant walking on her chest. She seems to describe a sensation of reflux which she calls her "bubble" in her esophagus. She experiences this often, both at rest and on activity, it is always alleviated with nitroglycerin. Her pain today resembles that and is no different in character or nature. She is concerned, given her history of CAD, whether this is esophageal or cardiac in nature. She does not have any associated symptoms, specifically no dizziness, palpitations, shortness of breath, diaphoresis, nausea/vomiting. She is fairly active, she swims laps in the pool most days and does not have chest pain with this. She also notes for the past several months, she has been very depressed and anxious, which she partially contributes to her dog's recent passing, however cannot seem to pull herself out of this feeling. Today she states before the episode of chest pain, she felt very sensitive, anxious, and as if she wanted to cry all day. She wonders if the pain in her chest is related to this. She tells me several times how she used to be such a happy person, but lately hates the world, doesn't care about friendships anymore, and worries about her aging and how she would make it alone if something were to happen to him. She has had palpitations and chest tightness that correlated with anxiousness in the past. In ED, she is hypertensive otherwise VS are wnl. Labs largely unremarkable, an initial troponin drawn at 12:30, approximately 3 hours after the onset of chest pain and it is 7.3. Allergies Allergy/AdvReac Type Severity Reaction Status Date / Time hydrochlorothiazide Allergy Mild RASH Verified 12/20/21 16:12 nickel Allergy Mild ITCHING Verified 12/20/21 16:12 AND REDNESS TO SKIN Penicillins Allergy Mild YEAST Verified 12/20/21 16:12 INFECTION insect venom Allergy swelling Verified 12/20/21 16:13 atorvastatin AdvReac Intermediate Unknown Verified 12/20/21 16:12 Home Medications Medication Instructions Recorded Confirmed Type levothyroxine 125 mcg tablet 125 mcg PO QAM 10/05/18 12/20/21 History losartan 50 mg tablet 50 mg PO QAM 10/05/18 12/20/21 History amlodipine 5 mg tablet (Norvasc) 5 mg PO QAM 09/20/20 12/20/21 History bisacodyl 5 mg tablet,delayed 10 mg PO HS 09/20/20 12/20/21 History release (Dulcolax (bisacodyl)) acetaminophen 650 mg 650 mg PO Q8H PRN 05/16/21 12/20/21 History tablet,extended release (Tylenol Arthritis Pain) gabapentin 300 mg capsule 300 mg PO TID cap 05/16/21 12/20/21 History nitroglycerin 0.4 mg sublingual 0.4 mg SUBLINGUAL Q5M PRN #25 tab 05/16/21 12/20/21 Rx tablet pantoprazole 40 mg tablet,delayed 40 mg PO DAILY #90 tab 05/16/21 12/20/21 Rx release metoprolol succinate 50 mg 50 mg PO QAM #90 tab 07/24/21 12/20/21 Rx tablet,extended release 24 hr aspirin 81 mg tablet,delayed 81 mg PO DAILY #90 tab 11/21/21 12/20/21 Rx release (Adult Low Dose Aspirin) metformin 500 mg tablet 500 mg PO BID 11/21/21 12/20/21 History furosemide 20 mg tablet 20 - 40 mg PO DAILY 12/20/21 12/20/21 History Past Med/Surg History Medical History (Updated 12/21/21 @ 07:19 by Cody Esparza) Arterial disease Back problem Emphysema lung GERD (gastroesophageal reflux disease) Hiatal hernia History of DVT (deep vein thrombosis) RLE -- 11/2020. History of tachycardia HTN (hypertension) Hypothyroidism Lumbar radiculopathy Lumbar stenosis with neurogenic claudication Non-STEMI (non-ST elevated myocardial infarction) 05/14/2020--had heart cath with 1 stent placement--on plavix daily--follows with Dr. Clarke Surgical History H/O foot surgery RT History of appendectomy History of cardiac cath 05/14/2020 @ [facility] with 1 stent placed History of colonoscopy History of esophagogastroduodenoscopy (EGD) Hx of Achilles tendon repair LEFT S/P epidural steroid injection (~05/11/20) S/P right coronary artery (RCA) stent placement (05/14/20) Family History (Updated 12/21/21 @ 07:19 by Cody Esparza) Other No family history of adverse response to anesthesia No pertinent family history Social History Smoking Status: Former smoker Tobacco Type: Cigarettes Second Hand Exposure: No; Do You Dip or Chew Tobacco: No; Hx Alcohol Use: Yes Alcohol type: hard liquor Hx Substance Use: No Preferred Language: Nepali Communication Ability: Effective Infirmary Attendant Required: No Beliefs That Will Affect Care: None Current Living Situation: Personal Care Facility Current Living Situation Comment: independent living at [facility] current occupational status: retired Other Information That Helps Us Care for You: Yes Feels Safe at Home: Yes Safety Concerns: Feels Safe At This Time Assistive Devices: Denture - Upper and Denture - Lower Review of Systems Review of Systems: All systems reviewed & are unremarkable except as noted in HPI & below Physical Exam Physical Exam: General: awake, alert, visibly anxious and tearful, but in no apparent distress Head: Normocephalic, atraumatic ENT: PERRL, EOMI, no pharyngeal exudate, mucous membranes moist Chest: Clear to auscultation, on room air, no adventitious breath sounds Cardiac: chest wall TTP, elicits similar chest pain experiences this am; regular rate and rhythm, no murmur, no JVD, normal peripheral pulses, good capillary refill Abdominal: very TTP in epigastric region; NABS x 4 quadrants, soft, otherwise nontender to palpation, no rebound, guarding or tenderness Extremities: Normal inspection, no peripheral edema or erythema, calfs nontender to palpation Psych: Anxious Neuro: AAO x 3, strength intact bilaterally and rated 5/5, no motor deficits, speech is clear, no peripheral sensory deficits Skin: no rash or erythema Results & Data Results & Data ([facility]) Vital Signs (Past 12 Hours) Vital Signs Temp Pulse Pulse Resp BP BP Pulse Ox 12/20/21 13:32 63 14 168/89 H 96 12/20/21 13:02 75 16 188/99 H 95 12/20/21 12:08 37.2 C 79 20 142/101 H 95 Laboratory Results Abnormal lab results 12/20/21 12/20/21 Range/Units 12:24 12:24 RDW Coeff of Madelin 14.6 H (11.5-14.5) % Immature Gran # (Auto) 0.05 H (0.00-0.02) K/uL Glucose 138 H (70-99(Fasting)) mg/dl Diagnostic Findings Chest X-Ray 12/20/21 12:13 XR chest 1V portable CLINICAL HISTORY: Atypical chest pain. COMPARISON STUDY: Chest radiograph November 01, 2020. FINDINGS: Lung volumes are normal. Lungs are clear. There is no pneumothorax or pleural effusion. Cardiac size is at the upper limits of normal and unchanged. Mediastinal contours are normal. There is no evidence for pulmonary edema. Minimal opacity along the left heart border is unchanged and favors epicardial fat pad or atelectasis IMPRESSION: No acute cardiopulmonary findings. No change in appearance of the chest. ACT 112: Negative or not required by law. Electronically signed by: Chino Hewitt M.D. 12/20/2021 1:25 PM Code Status & VTE Plan Code Status Full Code. Supervising Physician Co-Signing Physician Notes Attending Attestation & Admission Note: Pt seen/examined, chart reviewed, care plan d/w JONATHAN Nguyen. I agree with the shine components of her documentation. 81yo female with h/o CAD s/p RCA stent in 2019, h/o RLE DVT 2020, anxiety, HTN, DM, GERD - presenting with chest pain this am. Had relief of symptoms with nitro SL, then further relief of topical nitropaste in the ER. States the symptoms are "exactly the same" as when she had her NSTEMI in 2019 which led to the RCA stent. However, she also reports that her symptoms are similar to the "bubble" she gets in her chest with GERD. During my assessment she had 1-2/10 chest pain despite recent nitropaste. She otherwise was resting comfortably. PMH/PSH/allergies/meds/sochx/famhx - reviewed VSS but BPs mild-moderately high gen - NAD, a little anxious neck - no JVD heart - RRR, s1 s2 lungs - CTA b/l abd - soft, mild tenderness high epigastric region (but pain there is different than her chest pain), BS+, ND ext - no edema, pulses 2+ b/l chest - no reproducible chest wall pain to palpation labs reviewed EKG - my reading - NSR, J-point elevation III & AVF (slightly more than baseline); diffuse T wave inversions all anterior leads and I/AVL; T wave inversions are more prominent than prior EKGs (but prior EKGs have all been abnormal in these leads as well) cxr reviewed A/P: 1. chest pain - cardiac vs GI vs musculoskeletal vs pulmonary 2. known CAD 3. h/o NSTEMI 2019 with severely diseased RCA s/p stent 4. GERD 5. h/o RLE DVT 2020 6. anxiety 7. uncontrolled HTN Despite her persistent chest symptoms her troponins have remained negative. [id number] her pain is very similar to the pain she had experienced in 2020 with her NSTEMI and her EKG, although abnormal at baseline, shows deeper T wave inversions. Unfortunately, she has considerable overlap of her cardiac/ischemic symptoms with GERD symptoms making it difficult to tell if cardiac vs GI in nature. Does have h/o RLE DVT - dimer is modestly elevated but age-corrected is wnl - thus, VTE / PE unlikely as cause of chest symptoms. Agree w/ addition of carafate to her PPI. Telemetry. Formal cardiology consult in am. Echo. BP control. If cardiology feels this is not ischemic in nature consider GI consultation for EGD. Cody Esparza MD PG Care Time/CCT Total # of Minutes Spent Total Time Spent with Patient: Total time spent is greater than 50% in coordination of care (as documented) at patient's floor/unit and/or counseling patient: Coding Level of Care Code 36332 Initial Inpt Care Lvl 3 Diagnoses Chest pain R07.9 CAD (coronary artery disease) I25.119 Associated angina: with unspecified form of angina Coronary Disease-Associated Artery/Lesion type: [place] artery [place] vs. transplanted heart: [place] heart Diabetes type 2, controlled E11.9 DVT prophylaxis Z29.9 GERD (gastroesophageal reflux disease) K21.9 Esophagitis presence: without esophagitis Hypothyroidism E03.9 Hypothyroidism type: unspecified HTN (hypertension) I10 Hypertension type: essential hypertension Mood disorder F39 Chronic pain of both shoulders M25.511; M25.512; G89.29 (1) CAD (coronary artery disease) Associated angina: with unspecified form of angina Coronary Disease- Associated Artery/Lesion type: [place] artery [place] vs. transplanted heart: [place] heart Qualified Code(s): I25.119 - Atherosclerotic heart disease of [place] coronary artery with unspecified angina pectoris (2) Hypothyroidism Hypothyroidism type: unspecified Qualified Code(s): E03.9 - Hypothyroidism, unspecified (3) GERD (gastroesophageal reflux disease) Esophagitis presence: without esophagitis Qualified Code(s): K21.9 - Gastro-esophageal reflux disease without esophagitis (4) HTN (hypertension) Hypertension type: essential hypertension Qualified Code(s): I10 - Essential (primary) hypertension
[2021-12-20] MEDS ORDERED: POTASSIUM CHLORIDE CRTAB 20 MEQ TABCR PO STA (14:24)
[2021-12-20 15:52] LABS: Troponin I High Sensitivity 6.6 pg/ml (0-14)
[2021-12-20 15:57] LABS: Magnesium 1.9 mg/dl (1.7-2.4)
[2021-12-20 16:59] LABS: D Dimer 760 ug/L FEU (0-500)
[2021-12-20] MEDS ORDERED: CARBOHYDRATES FOR HYPOGLYCEMIA PO PRN (18:16)
[2021-12-20] MEDS ORDERED: NITROGLYCERIN SL 0.4 MG/TAB TAB SL PRN (18:16)
[2021-12-20] MEDS ORDERED: GLUCAGON FOR INJ 1 MG VIAL SQ PRN (18:16)
[2021-12-20] MEDS ORDERED: GLUCOSE 40% GEL 15 GM TUBE PO PRN (18:16)
[2021-12-20] MEDS ORDERED: MoRPHine SULFATE 2 MG/ML CARP IV STA (18:16)
[2021-12-20] MEDS ORDERED: DEXTROSE 50% 50 ML SYRINGE IV PRN (18:16)
[2021-12-20] MEDS ORDERED: POLYETHYLENE (MIRALAX) 17 GM PACK PO PRN (18:16)
[2021-12-20] MEDS ORDERED: ONDANSETRON INJ 2 MG/ML 2 ML VIAL IV PRN (18:16)
[2021-12-20] MEDS ORDERED: GLUCOSE 10 TAB/TUBE PO PRN (18:16)
[2021-12-20] MEDS ORDERED: NON-FORMULARY MEDICATION (Acetaminophen [Tylenol Arthritis Pain] 650 mg tablet extended re PO PRN (18:16)
[2021-12-20] MEDS ORDERED: ACETAMINOPHEN 325 MG TAB PO PRN (18:16)
[2021-12-20] MEDS ORDERED: bisacodyL 5 MG TABEC PO SCH (21:00)
[2021-12-20] MEDS ORDERED: ENOXAPARIN INJ 40 MG/0.4 ML SYR SQ SCH (21:00)
[2021-12-20] MEDS: GABAPENTIN 300 MG CAP PO SCH (21:24)
[2021-12-20] MEDS: LIDOCAINE 5% 1 PATCH TD SCH (21:24)
[2021-12-20] MEDS: INSULIN ASPART PER UNIT SC SCH ×2 (21:26→22:00)
[2021-12-20] MEDS: SUCRALFATE 1 GM/10 ML UDC PO SCH ×2 (22:00→22:40)
[2021-12-21] MEDS ORDERED: LEVOTHYROXINE SODIUM 125 MCG TABLET PO SCH (06:30)
[2021-12-21 07:08] LABS: Basophils # (auto) 0.06 K/uL (0-0.2); Basophils % (auto) 0.8 %; Eosinophils # (auto) 0.16 K/uL (0-0.50); Eosinophils % (auto) 2.2 %; Hematocrit (blood only) 44.5 % (34.1-44.9); Hemoglobin 14.4 g/dl (12.0-16.0); Immature Granulocytes # (auto) 0.03 K/uL (0.00-0.02); Immature Granulocytes % (auto) 0.4 %; Lymphocytes # (auto) 1.62 K/uL (1.2-3.4); Lymphocytes % (auto) 22.1 %; Mean Corpuscular Hemoglobin 29.2 pg (25.0-34.0); Mean Corpuscular Hgb Conc 32.4 g/dL (32.0-36.0); Mean Corpuscular Volume 90.3 fL (80.0-100.0); Mean Platelet Volume 10.9 fL (9.4-12.3); Monocytes # (auto) 0.62 K/uL (0.24-0.82); Monocytes % (auto) 8.4 %; Neutrophils # (auto) 4.85 K/uL (1.4-6.5); Neutrophils % (auto) 66.1 %; Platelet Count 288 K/uL (130-400); RDW Coefficient of Variation 14.5 % (11.5-14.5); RDW Standard Deviation 47.6 fL (36.4-46.3); Red Blood Count 4.93 M/uL (3.93-5.22); White Blood Count 7.34 K/ul (4.8-10.8)
[2021-12-21 07:22] LABS: BUN Creatinine Ratio 17.5 (10-20); Calcium 9.3 mg/dl (8.5-10.1); Est GFR (African American) 63.9 ml/min; Est GFR (Non-African American) 55.2 ml/min; Magnesium 2.1 mg/dl (1.7-2.4); Potassium 3.8 mmol/L (3.5-5.1)
[2021-12-21 07:31] LABS: Thyroid Stimulating Hormone 4.894 uIu/ml (0.300-4.500)
[2021-12-21 07:34] LABS: Estimated Average Glucose 160 mg/dl; Hemoglobin A1C 7.2 % (4.5-5.6)
[2021-12-21 08:06] LABS: T4 Free Thyroxine 0.92 ng/dl (0.61-1.60)
--- NOTE | 2021-12-21 08:22 | Hospitalist Progress Note ---
Date of Service December 21, 2021 Assessment & Plan (1) Chest pain: Plan: Chest pain NAD EKG: T wave inversion, ST abnormalities in 3/aVF. Case was reviewed with cardiology on admission, changes were noted to be chronic on prior EKGs Initial troponin 7.3 after onset of chest pain, unlikely presentation ACS. Trended to 6.6. Further trend deferred Patient did have a history of atypical chest pain of GI origin in the past Tender to palpation at epigastrium on admission Patient has also had very high anxiety Received aspirin full dose in ER Potassium repleted, magnesium normal Echo pending (2) CAD (coronary artery disease): Plan: - S/p RCA stent in 2019 and negative stress echo in 2020. Previously on DAPT Plavix and aspirin, now just on aspirin 81 mg monotherapy - Continue aspirin, losartan, metoprolol, nitroglycerin as needed. - She is intolerant to statin, given LDL 53 on last lipid panel, likely not a candidate for PCSK9 injectable. - Occasionally has edema, prescribed Lasix, 20 mg to be taken if weight < 95 kg, 40 mg if weight >95 kg. - Follows with Dr. Clarke for cardiology and Dr. Rg for vascular. (3) Diabetes type 2, controlled: Plan: - On metformin 500 mg twice daily, held while inpatient. A1c 7.2% Fasting glucose 160, POC 154 - Patient expresses confusion over dietary restrictions given her diabetes, as well as heart disease in which she is told to avoid both sugar and salt. Does not know what she will eat if she cannot have any salt or any sugar. Cattle Sticker consulted for education on heart healthy/diabetic diet. (4) DVT prophylaxis: Plan: - Lovenox daily. - History of provoked DVT in November 2020 after hospitalization, was on Eliquis for 3 months without complications. - D dimer ordered to r/o VTE --> 760, age adjusted cut off is 800 and no concerning signs/symptoms for possible VTE, therefore defer further workup. (5) GERD (gastroesophageal reflux disease): Plan: - Continue pantoprazole, will also add on Carafate as of high suspicion chest pain is more so related to gastritis or reflux disease. - EGD [] ? - If stable may have outpt EGD f/u. hgb stable and @ 14.4 (6) Hypothyroidism: Plan: - Continue levothyroxine 125 mcg daily. - TSH 4.8, mild elevation (7) HTN (hypertension): Plan: - Continue metoprolol 50 mg daily - Losartan 50 mg daily - Amlodipine 5 mg daily. (8) Mood disorder: Plan: -On admit provider discussion pt focused and bothered by how depressed and nervous she has felt over the past few months. Pt expresses that her dog and had been attributing her low moods to this, however she is beginning to lose interest in activities and friendships, "hates the world ", frequently worries about how she will survive if something were to happen to her aging . Denies suicidal or homicidal ideation, however does say one point stated to admit provider "maybe this is a heart attack and I will and it will all be over ". She relays multiple days where she feels panicked, then notices her h eart racing out of control and sometimes brings on chest pain or sense of discomfort. - Psych [] (9) Chronic pain of both shoulders: Plan: - Due to herniated neck disc, pain not worse or exacerbated with chest pain. - Lidocaine patch ordered prn. Plan: - Admit to med/telemetry. - SCDs, Lovenox for VTE ppx. - Ful Code. Admission and Anticipated Discharge Date Admission Date: December 20, 2021 Results & Data Results & Data ([facility]) Vital Signs (Past 12 Hours) Vital Signs Temp Pulse Pulse Resp BP Pulse Ox 12/21/21 03:28 36.5 C 76 18 159/73 H 96 12/20/21 23:14 36.5 C 90 20 126/75 92 12/20/21 22:17 76 PG Care Time/CCT Total # of Minutes Spent Total Time Spent with Patient: Total time spent is greater than 50% in coordination of care (as documented) at patient's floor/unit and/or counseling patient: Coding Diagnoses Chest pain R07.9 CAD (coronary artery disease) I25.119 Coronary Disease-Associated Artery/Lesion type: [place] artery [place] vs. transplanted heart: [place] heart Associated angina: with unspecified form of angina Diabetes type 2, controlled E11.9 DVT prophylaxis Z29.9 GERD (gastroesophageal reflux disease) K21.9 Esophagitis presence: without esophagitis Hypothyroidism E03.9 Hypothyroidism type: unspecified HTN (hypertension) I10 Hypertension type: essential hypertension Mood disorder F39 Chronic pain of both shoulders M25.511; M25.512; G89.29 (1) CAD (coronary artery disease) Coronary Disease-Associated Artery/Lesion type: [place] artery [place] vs. transplanted heart: [place] heart Associated angina: with unspecified form of angina Qualified Code(s): I25.119 - Atherosclerotic heart disease of [place] coronary artery with unspecified angina pectoris (2) GERD (gastroesophageal reflux disease) Esophagitis presence: without esophagitis Qualified Code(s): K21.9 - Gastro- esophageal reflux disease without esophagitis (3) Hypothyroidism Hypothyroidism type: unspecified Qualified Code(s): E03.9 - Hypothyroidism, unspecified (4) HTN (hypertension) Hypertension type: essential hypertension Qualified Code(s): I10 - Essential (primary) hypertension
[2021-12-21] MEDS: GABAPENTIN 300 MG CAP PO SCH (08:27)
[2021-12-21] MEDS: SUCRALFATE 1 GM/10 ML UDC PO SCH ×2 (08:34→12:44)
[2021-12-21] MEDS: LIDOCAINE 5% 1 PATCH TD SCH (08:35)
[2021-12-21] MEDS: INSULIN ASPART PER UNIT SC SCH ×2 (08:50→12:17)
[2021-12-21] MEDS ORDERED: ASPIRIN 81 MG ECTAB PO SCH (09:00)
[2021-12-21] MEDS ORDERED: FUROSEMIDE 20 MG TAB PO SCH (09:00)
[2021-12-21] MEDS ORDERED: LOSARTAN POTASSIUM 50 MG TAB PO SCH (09:00)
[2021-12-21] MEDS ORDERED: PANTOprazole 40 MG TAB PO SCH (09:00)
[2021-12-21] MEDS ORDERED: amLODIPine BESYLATE 5 MG TAB PO SCH (09:00)
[2021-12-21] MEDS ORDERED: METOPROLOL SUCC 50MG EXT REL TAB PO SCH (09:00)
[2021-12-21] MEDS ORDERED: GABAPENTIN 300 MG CAP PO ONE (10:23)
--- NOTE | 2021-12-21 10:36 | Cardiology Consultation ---
Date of Consultation December 21, 2021 Assessment & Plan (1) Chest pain: (2) HTN (hypertension): (3) Abnormal ECG: (4) CAD (coronary artery disease): (5) S/P right coronary artery (RCA) stent placement: 1. Chest pain: She has a long-standing history of atypical chest pain, which has been felt to possibly be esophageal in origin. Dobutamine stress test for chest pain in October 2020 was negative for ischemia. Her discomfort yesterday did occur after taking all of her morning medication on an empty stomach. From a cardiac standpoint, it is reassuring that her high sensitivity troponin has been negative x2. Her ECG is abnormal, but she has had similar T wave inversions in her anterolateral leads in the past, possibly due to LVH with repolarization abnormality. She remains active swimming on a regular basis with no exertional chest pain. An echo was performed earlier today, and the official reading is pending. As long as the echocardiogram is unremarkable, no additional cardiovascular testing or intervention indicated at this time. Should she have progressive or exertional symptoms in the future, repeat stress test or cardiac cath could be considered. 2. Hypertension: BP has been elevated throughout her hospitalization. Consider titration of her antihypertensive therapy for better BP control. 3. Coronary artery disease s/p PCI of RCA: Current presentation is not consistent with an ACS. Continue aspirin, beta reji, CCB, and ARB. She is intolerant to statin therapy. 4. Depression: As per primary service. Psychiatry has also been consulted. History of Present Illness Reason for Consultation: Chest pain with history of CAD Requesting Physician: Jeanne Nguyen PA-C Attending Physician: Breezy Cotto MD History of Present Illness Mrs. 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 The patient states that yesterday morning, she woke up and took her blood pressure, which was elevated at 207/93 mmHg. She then took her medication on an empty stomach and went to make her bed. While making her bed, she developed pain in the center of her chest and off to the left, which was described as an "air bubble" or as though someone was sitting on her chest. She also had a choking sensation in her neck/throat, but she had no associated shortness of breath, nausea, or diaphoresis. She took a nitro, and the pain eventually resolved, but she is not sure how long after taking the nitro that the pain went away. She estimates that she had the pain for a total of about 30 mins. She was left with a mild discomfort in her chest where she felt as though there was a lead on her chest, and this did not resolve until 7 pm last evening. At some point, she also rechecked her blood pressure and it was still elevated at 193 mmHg systolic. She called the nurse given her chest pain and elevated blood pressure and was advised to see her PCP. In her PCP's office, her ECG was abnormal and she was referred to the ER. She states that she often has discomfort in her chest, which she refers to as her "air bubble." The discomfort does not appear to be related to activity. Dr. Clarke, her primary software sales manager, refers to a similar discomfort in his last clinic note, and it has been felt that the discomfort is possibly esophageal in origin. She remains fairly active swimming 4-5 times a week for 45-60 mins. She states that she was swimming earlier this week with no chest discomfort. Her biggest concern during the discussion with her today is depression. Family history: Noncontributory given her own disease and advanced age. Social history: She is and lives with her . No alcohol. Quit tobacco June 2018, 30 pack year history Allergies Allergy/AdvReac Type Severity Reaction Status Date / Time hydrochlorothiazide Allergy Mild RASH Verified 12/20/21 16:12 nickel Allergy Mild ITCHING Verified 12/20/21 16:12 AND REDNESS TO SKIN Penicillins Allergy Mild YEAST Verified 12/20/21 16:12 INFECTION insect venom Allergy swelling Verified 12/20/21 16:13 atorvastatin AdvReac Intermediate Unknown Verified 12/20/21 16:12 Home Medications Medication Instructions Recorded Confirmed Type levothyroxine 125 mcg tablet 125 mcg PO QAM 10/05/18 12/20/21 History losartan 50 mg tablet 50 mg PO QAM 10/05/18 12/20/21 History amlodipine 5 mg tablet (Norvasc) 5 mg PO QAM 09/20/20 12/20/21 History bisacodyl 5 mg tablet,delayed 10 mg PO HS 09/20/20 12/20/21 History release (Dulcolax (bisacodyl)) acetaminophen 650 mg 650 mg PO Q8H PRN 05/16/21 12/20/21 History tablet,extended release (Tylenol Arthritis Pain) gabapentin 300 mg capsule 300 mg PO TID cap 05/16/21 12/20/21 History nitroglycerin 0.4 mg sublingual 0.4 mg SUBLINGUAL Q5M PRN #25 tab 05/16/21 12/20/21 Rx tablet pantoprazole 40 mg tablet,delayed 40 mg PO DAILY #90 tab 05/16/21 12/20/21 Rx release metoprolol succinate 50 mg 50 mg PO QAM #90 tab 07/24/21 12/20/21 Rx tablet,extended release 24 hr aspirin 81 mg tablet,delayed 81 mg PO DAILY #90 tab 11/21/21 12/20/21 Rx release (Adult Low Dose Aspirin) metformin 500 mg tablet 500 mg PO BID 11/21/21 12/20/21 History furosemide 20 mg tablet 20 - 40 mg PO DAILY 12/20/21 12/20/21 History Patient History Medical History (Updated 12/21/21 @ 07:19 by Cody Esparza) Arterial disease Back problem Emphysema lung GERD (gastroesophageal reflux disease) Hiatal hernia History of DVT (deep vein thrombosis) RLE -- 11/2020. History of tachycardia HTN (hypertension) Hypothyroidism Lumbar radiculopathy Lumbar stenosis with neurogenic claudication Non-STEMI (non-ST elevated myocardial infarction) 05/14/2020--had heart cath with 1 stent placement--on plavix daily--follows with Dr. Clarke Surgical History H/O foot surgery RT History of appendectomy History of cardiac cath 05/14/2020 @ [facility] with 1 stent placed History of colonoscopy History of esophagogastroduodenoscopy (EGD) Hx of Achilles tendon repair LEFT S/P epidural steroid injection (~05/11/20) S/P right coronary artery (RCA) stent placement (05/14/20) Family History (Updated 07/07/22 @ 07:19 by Cody Esparza) Other No family history of adverse response to anesthesia No pertinent family history Social History Smoking Status: Former smoker Tobacco Type: Cigarettes Second Hand Exposure: No; Do You Dip or Chew Tobacco: No; Hx Alcohol Use: Yes Alcohol type: hard liquor Hx Substance Use: No Preferred Language: Bangladeshi Communication Ability: Effective 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 EOMs intact. Sclera non-icteric. Face is symmetric. No perioral cyanosis. Mucous membranes moist Neck: Supple, no JVD, no carotid bruits Pulmonary: Normal respiratory effort, clear to auscultation throughout Cardiac: Regular rate and rhythm, normal S1 and S2, no gallops, no rubs, no murmurs Extremities: No edema. No clubbing or cyanosis. Pulses 2+ and symmetric Abdomen: Normal bowel sounds, soft, non-tender, no abdominal masses palpated Skin: Normal skin color, turgor, and pigmentation. No rash or skin lesions Neurological: Oriented to person, place, and time Results & Data ([facility]) Vital Signs (Past 12 Hours) Vital Signs Temp Pulse Pulse Resp BP Pulse Ox 12/21/21 09:43 69 12/21/21 03:28 97.7 F 76 18 159/73 H 96 12/20/21 23:14 97.7 F 90 20 126/75 92 12/20/21 22:17 76 Laboratory Results Laboratory Results WBC 7.34 K/ul (4.8-10.8) 12/21/21 06:43 RBC 4.93 M/uL (3.93-5.22) 12/21/21 06:43 Hgb 14.4 g/dl (12.0-16.0) 12/21/21 06:43 Hct 44.5 % (34.1-44.9) 12/21/21 06:43 MCV 90.3 fL (80.0-100.0) 12/21/21 06:43 MCH 29.2 pg (25.0-34.0) 12/21/21 06:43 MCHC 32.4 g/dL (32.0-36.0) 12/21/21 06:43 RDW Std Deviation 47.6 fL (36.4-46.3) H 12/21/21 06:43 RDW Coeff of Madelin 14.5 % (11.5-14.5) 12/21/21 06:43 Plt Count 288 K/uL (130-400) 12/21/21 06:43 MPV 10.9 fL (9.4-12.3) 12/21/21 06:43 Immature Gran % (Auto) 0.4 % 12/21/21 06:43 Neut % (Auto) 66.1 % 12/21/21 06:43 Lymph % (Auto) 22.1 % 12/21/21 06:43 [place] % (Auto) 8.4 % 12/21/21 06:43 Eos % (Auto) 2.2 % 12/21/21 06:43 Baso % (Auto) 0.8 % 12/21/21 06:43 Neut # (Auto) 4.85 K/uL (1.4-6.5) 12/21/21 06:43 Lymph # (Auto) 1.62 K/uL (1.2-3.4) 12/21/21 06:43 [place] # (Auto) 0.62 K/uL (0.24-0.82) 12/21/21 06:43 Eos # (Auto) 0.16 K/uL (0-0.50) 12/21/21 06:43 Baso # (Auto) 0.06 K/uL (0-0.2) 12/21/21 06:43 Immature Gran # (Auto) 0.03 K/uL (0.00-0.02) H 12/21/21 06:43 PT 10.3 Seconds (9.0-12.0) 12/20/21 12:24 INR 1.0 (0.9-1.1) 12/20/21 12:24 APTT 23.6 Seconds (21.0-31.0) 12/20/21 12:24 PTT Ratio 0.9 12/20/21 12:24 D-Dimer 760 ug/L FEU (0-500) H* 12/20/21 12:24 Sodium 139 mmol/L (136-145) 12/21/21 06:43 Potassium 3.8 mmol/L (3.5-5.1) 12/21/21 06:43 Chloride 104 mmol/L (98-107) 12/21/21 06:43 Carbon Dioxide 29 mmol/L (21-32) 12/21/21 06:43 Anion Gap 6 (3-11) 12/21/21 06:43 BUN 17 mg/dl (6-23) 12/21/21 06:43 Creatinine 0.97 mg/dl (0.6-1.2) 12/21/21 06:43 Est Cr Clr Drug Dosing 54.0 ml/min 12/21/21 06:43 Est GFR ( Amer) 63.9 ml/min 12/21/21 06:43 Est GFR (Non-Af Amer) 55.2 ml/min 12/21/21 06:43 BUN/Creatinine Ratio 17.5 (10-20) 12/21/21 06:43 Glucose 160 mg/dl (70-99(Fasting)) H 12/21/21 06:43 POC Glucose 154 mg/dl (70-99) H 12/21/21 07:45 Estimat Average Glucose 160 mg/dl 12/21/21 06:43 Hemoglobin A1c 7.2 % (4.5-5.6) H 12/21/21 06:43 Calcium 9.3 mg/dl (8.5-10.1) 12/21/21 06:43 Magnesium 2.1 mg/dl (1.7-2.4) 12/21/21 06:43 Total Bilirubin 0.7 mg/dl (0.2-1.0) 12/20/21 12:24 AST 22 U/L (13-39) 12/20/21 12:24 ALT 31 U/L (7-52) 12/20/21 12:24 Alkaline Phosphatase 93 U/L (34-104) 12/20/21 12:24 Troponin I High Sens 6.6 pg/ml (0-14) 12/20/21 14:57 Total Protein 7.5 gm/dl (6.0-8.3) 12/20/21 12:24 Albumin 4.4 gm/dl (3.4-5.0) 12/20/21 12:24 Globulin 3.1 gm/dl (2.5-4.0) 12/20/21 12:24 Albumin/Globulin Ratio 1.4 (0.9-2) 12/20/21 12:24 TSH 4.894 uIu/ml (0.300-4.500) H 12/21/21 06:43 Free T4 0.92 ng/dl (0.61-1.60) 12/21/21 06:43 SARS-CoV-2, RNA, NAAT NEGATIVE (NEGATIVE) 12/20/21 15:47 Diagnostic Findings Chest X-Ray 12/20/21 12:13: No acute cardiopulmonary findings. No change in appearance of the chest. ECG 12/20/21: Normal sinus rhythm. T wave inversion in anterolateral leads. Compared to prior ECGs, T wave inversion has been present in the past, including an ECG from September 2018. ECG 12/21/21: Normal sinus rhythm. Persistent T wave abnormality in anterolateral leads. Telemetry monitoring: Sinus in the 60s-70s. DSE 11/02/20: Negative for ischemia at 89% MPHR. PG Care Time/CCT Total # of Minutes Spent Total Time Spent with Patient: Total time spent is greater than 50% in coordination of care (as documented) at patient's floor/unit and/or counseling patient: Coding Level of Care Code 79623 Initial Inpt Care Lvl 3 Diagnoses Chest pain R07.9 Chest pain type: unspecified HTN (hypertension) I10 Hypertension type: unspecified Abnormal ECG R94.31 CAD (coronary artery disease) I25.119 Coronary Disease-Associated Artery/Lesion type: [place] artery [place] vs. transplanted heart: [place] heart Associated angina: with unspecified form of angina S/P right coronary artery (RCA) stent placement Z95.5 (1) Chest pain Chest pain type: unspecified Qualified Code(s): R07.9 - Chest pain, unspecified (2) HTN (hypertension) Hypertension type: unspecified Qualified Code(s): I10 - Essential (primary) hypertension (3) CAD (coronary artery disease) Coronary Disease-Associated Artery/Lesion type: [place] artery [place] vs. transplanted heart: [place] heart Associated angina: with unspecified form of angina Qualified Code(s): I25.119 - Atherosclerotic heart disease of [place] coronary artery with unspecified angina pectoris
--- NOTE | 2021-12-21 12:47 | XCELERA ---
[id number] \\[id number]
--- NOTE | 2021-12-21 13:47 | Discharge Summary ---
Date of Service December 21, 2021 Admission HPI Per Admitting Provider Bessy Vick is an 81-year-old female with a past medical history significant for CAD s/p RCA stent in 2019, hypertension, hyperlipidemia, DM2, GERD, and hypothyroidism who presents today with chest pain since 9am this morning. She was making her bed when she developed left sided chest painthat did radiate into her left throat/neck, but did not radiate elsewhere to shoulder/arm/jaw/back. She laid down and took a nitroglycerin which alleviated her pain, but does describe a lingering sensation of an elephant walking on her chest. She seems to describe a sensation of reflux which she calls her "bubble" in her esophagus. She experiences this often, both at rest and on activity, it is always alleviated with nitroglycerin. Her pain today resembles that and is no different in character or nature. She is concerned, given her history of CAD, whether this is esophageal or cardiac in nature. She does not have any associated symptoms, specifically no dizziness, palpitations, shortness of breath, diaphoresis, nausea/vomiting. She is fairly active, she swims laps in the pool most days and does not have chest pain with this. She also notes for the past several months, she has been very depressed and anxi ous, which she partially contributes to her dog's recent passing, however cannot seem to pull herself out of this feeling. Today she states before the episode of chest pain, she felt very sensitive, anxious, and as if she wanted to cry all day. She wonders if the pain in her chest is related to this. She tells me several times how she used to be such a happy person, but lately hates the world, doesn't care about friendships anymore, and worries about her aging and how she would make it alone if something were to happen to him. She has had palpitations and chest tightness that correlated with anxiousness in the past. In ED, she is hypertensive otherwise VS are wnl. Labs largely unremarkable, an initial troponin drawn at 12:30, approximately 3 hours after the onset of chest pain and it is 7.3. Principal Diagnosis Noncardiac chest pain, suspected GERD Discharge Exam General: A&Ox3. NAD. Cooperative. Intermittently tearful when discussing depression, otherwise affect normal HEENT: Atraumatic, normocephalic. Hearing grossly intact Pulm: CTAB A&P. -wheezes, -rales, -rhonchi. Symmetrical chest rise. No increase in work of breathing. No respiratory distress. Cardiac: RRR, -mrg. Radial pulses intact and symmetrical. Abdominal: Nontender, nondistended, soft. BS present. Discharge Data Allergies Allergy/AdvReac Type Severity Reaction Status Date / Time hydrochlorothiazide Allergy Mild RASH Verified 12/20/21 16:12 nickel Allergy Mild ITCHING Verified 12/20/21 16:12 AND REDNESS TO SKIN Penicillins Allergy Mild YEAST Verified 12/20/21 16:12 INFECTION insect venom Allergy swelling Verified 12/20/21 16:13 atorvastatin AdvReac Intermediate Unknown Verified 12/20/21 16:12 Consultations 12/20/21 13:42 ED Decision to Admit Stat 12/20/21 18:16 Consult Psychiatry Routine 12/20/21 18:44 Consult Cardiology Routine Hospital Course (1) Chest pain: Melissa Barajas is a 81-year-old female presented with chest pain. Her cardiac eval showed normal troponins, EKG changes which are similar to prior without acute changes, and an echo without wall motion abnormalities and EF 70%. Her symptoms did resolve following sucralfate. Her hemoglobin was stable and inpatient endoscopy was not recommended, she was placed on twice daily PPI therapy for 2 weeks with famotidine as needed and follow-up to PCP with consideration of GI follow-up as outpatient. Sucralfate was offered to patient, she strongly wished to minimize pill burden and did not wish to take this and so twice daily PPI with breakthrough famotidine was pursued instead. Her symptoms had resolved at time of discharge. During admission she did endorse severe and worsened anxiety and depression, noting the loss of her dog in the previous month as well. She was seen by psych liaison and psychiatry. In discussion with patient she does not wish to pursue pharmacologic treatment of depression, but would like to pursue therapy/counseling. Patient was provided with resources for some point, and an appointment was attempting to be facilitated by both case management and psych liaison. No SI/HI. Do as outpatient: 1. 2 weeks of twice daily PPI treatment, followed by 4 weeks of oral. Breakthrough famotidine as needed. 2. Outpatient follow-up to PCP and GI for GERD 3. Follow-up of depression/anxiety with grief from loss of pet. Patient following up with some point, appointments attempting to be facilitated although long wait list. No SI/HI during admission. Chest pain NAD EKG: T wave inversion, ST abnormalities in 3/aVF. Case was reviewed with cardiology on admission, changes were noted to be chronic on prior EKGs Initial troponin 7.3 after onset of chest pain, unlikely presentation ACS. Trended to 6.6. Further trend deferred Patient did have a history of atypical chest pain of GI origin in the past Tender to palpation at epigastrium on admission Patient has also had very high anxiety Received aspirin full dose in ER Potassium repleted, magnesium normal Echo EF 70%, no wall motion abnormalities, concentric LVH. (2) CAD (coronary artery disease): - S/p RCA stent in 2019 and negative stress echo in 2020. Previously on DAPT Plavix and aspirin, now just on aspirin 81 mg monotherapy - Continue aspirin, losartan, metoprolol, nitroglycerin as needed. - She is intolerant to statin, given LDL 53 on last lipid panel, likely not a candidate for PCSK9 injectable. - Occasionally has edema, prescribed Lasix, 20 mg to be taken if weight < 95 kg, 40 mg if weight >95 kg. - Follows with Dr. Clarke for cardiology and Dr. Rg for vascular. (3) Diabetes type 2, controlled: - On metformin 500 mg twice daily, held while inpatient. A1c 7.2% Fasting glucose 160, POC 154 - Patient expresses confusion over dietary restrictions given her diabetes, as well as heart disease in which she is told to avoid both sugar and salt. Does not know what she will eat if she cannot have any salt or any sugar. Roving Carrier consulted for education on heart healthy/diabetic diet. (4) DVT prophylaxis: - Lovenox daily. - History of provoked DVT in November 2020 after hospitalization, was on Eliquis for 3 months without complications. - D dimer ordered to r/o VTE --> 760, age adjusted cut off is 800 and no concerning signs/symptoms for possible VTE, therefore defer further workup. (5) GERD (gastroesophageal reflux disease): - Continue pantoprazole, will also add on Carafate as of high suspicion chest pain is more so related to gastritis or reflux disease. - EGD as outpatient if persistent symptoms, increased risk at age 81. Hemoglobin stable without acute bleeding during admission (6) Hypothyroidism: - Continue levothyroxine 125 mcg daily. - TSH 4.8, mild elevation with normal free T4 (7) HTN (hypertension): - Continue metoprolol 50 mg daily - Losartan 50 mg daily - Amlodipine 5 mg daily. (8) Mood disorder: -Endorses that she has many things that she is grateful for and has a good life, but she has been more depressed in the previous few months which is acutely worsened with the of her dog a month ago. Does have lot of anxiety around the relationship of her and his son, and notes that she cannot talk to him because he is involved in the situation and she needs someone to talk to him just for her. She does not wish to pursue pharmacologic treatment of depression. Did meet with psych liaison and psychiatry during admission. Attempting to facilitate counseling with some point as outpatient. No SI/HI (9) Chronic pain of both shoulders: - Due to herniated neck disc, pain not worse or exacerbated with chest pain. - Lidocaine patch ordered prn. - Admit to med/telemetry. - SCDs, Lovenox for VTE ppx. - Ful Code. Total Time Total Time Spent Total Time Spent (In Minutes): Time spend day of discharge 90 minutes including direct patient care, documentation, review of labs and images, and coordination of care. Discharge Plan Discharge Items Patient Disposition: Home - Self-Care Reason For Visit: CHEST PAIN Discharge Diagnosis: Noncardiac chest pain, suspected GERD Activity: Resume your previous activity Non-emergency contact: Primary Care Provider Call non-emergency contact if: you have any medication questions, your symptoms worsen and your pain is not controlled Follow-up/Referrals: Altaf Cevallos DO [Primary Care Provider] - Diet: Regular Addtl Attending Provider Instructions: You were seen in the hospital for chest pain. Your troponins, blood markers of heart damage, were negative and your EKG did not show any new changes. Your heart ultrasound did not show any concerning changes. Your evaluation was not consistent with a heart attack. You have had a history of GERD, and acid reflux/ulcers can present similarly. You were treated with sucralfate (a prot ective coating type of medication for your stomach) during admission with resolution of your pain. You wish to minimize pill burden as an outpatient with follow-up, your omeprazole dose has been adjusted as noted below. You expressed significant anxiety and depression, which has been much worse recently since your dog . Various options for the treatment of depression were discussed, you preferred to pursue a counseling/talk therapy approach at this time. This is being arranged as an outpatient, and follow-up phone numbers have been provided to you. Our nurse navigator is also working with case management to help facilitate an appointment for you. Please discuss this appoint with your primary care physician on follow-up as well. Your omeprazole has been switched to pantoprazole with a dose adjustment. Please take pantoprazole 40 mg by mouth twice daily for 2 weeks, and follow-up with your primary care provider as an outpatient for further. He did not show signs of bleeding during admission, it may be reasonable to follow-up with GI as an outpatient. If you have reflux symptoms, you may also take famotidine 20 mg up to twice daily as needed for acid reduction. Blood pressure was slightly high during admission, although was periodically normal. Stress can also have a profound effect on blood pressure. Please follow-up with your primary care provider for additional blood pressure checks and adjustments. If you develop any new or worsening symptoms including fever, chills, sweats, chest pain, chest pressure, difficulty breathing, uncontrolled nausea/vomiting, rash, wheezing, passing out or nearly passing out, bleeding, black/bloody bowel movements, or other new or concerning symptoms please call your primary care physician, or call 911 for re-evaluation in the emergency department if you are very concerned. Pending Studies at Discharge: No Stand-Alone Forms: My [facility] [employer], Smoking Cessation Medications and DC Order Prescriptions: New pantoprazole 40 mg Tablet,Delayed Release (Dr/Ec) See Rx Instructions .ROUTE .COMPLEX Qty: 56 RF: 0 Continued metoprolol succinate 50 mg tablet extended release 24 hr 50 mg PO QAM Qty: 90 RF: 3 acetaminophen [Tylenol Arthritis Pain] 650 mg tablet extended release 650 mg PO Q8H PRN (Reason: pain) RF: 0 nitroglycerin 0.4 mg tablet, sublingual 0.4 mg sublingual Q5M PRN (Reason: chest pain) Qty: 25 RF: 3 metformin 500 mg tablet 500 mg PO BID RF: 0 aspirin [Adult Low Dose Aspirin] 81 mg tablet,delayed release (DR/EC) 81 mg PO DAILY Qty: 90 RF: 3 losartan 50 mg tablet 50 mg PO QAM RF: 0 levothyroxine 125 mcg tablet 125 mcg PO QAM RF: 0 gabapentin 300 mg capsule 300 mg PO TID RF: 0 furosemide 20 mg tablet 20 - 40 mg PO DAILY RF: 0 bisacodyl [Dulcolax (bisacodyl)] 5 mg Tablet,Delayed Release (Dr/Ec) 10 mg PO HS RF: 0 amlodipine [Norvasc] 5 mg tablet 5 mg PO QAM RF: 0 Discontinued pantoprazole 40 mg tablet,delayed release (DR/EC) 40 mg PO DAILY Qty: 90 RF: 3 Discharge Orders: Discharge Order (Routine); Ordered 12/21/21 Ordered By: Breezy Ceron/Other Patient Handouts: Managing Type 2 Diabetes Admission Data Admit Date/Time: 12/20/21 15:32 Attending Provider: Breezy Cotto Admit Provider: Cody Esparza Primary Care Provider: Altaf Cevallos Other Providers: Cody Esparza ; Deandre Clarke ; Catalina Chavis ; Melly Soto ; Diane Fitzpatrick Coding Level of Care Code D/C DAY MANAGEMENT >30 MINS Diagnoses Chest pain R07.9 CAD (coronary artery disease) I25.119 Coronary Disease-Associated Artery/Lesion type: [place] artery [place] vs. transplanted heart: [place] heart Associated angina: with unspecified form of angina Diabetes type 2, controlled E11.9 DVT prophylaxis Z29.9 GERD (gastroesophageal reflux disease) K21.9 Esophagitis presence: without esophagitis Hypothyroidism E03.9 Hypothyroidism type: unspecified HTN (hypertension) I10 Hypertension type: essential hypertension Mood disorder F39 Chronic pain of both shoulders M25.511; M25.512; G89.29
--- NOTE | 2021-12-21 16:18 | Psychiatric Consultation ---
Date of Consultation December 21, 2021 Impression / Recommendations Impression 81 yo female with phase of life issues, mood worse after loss of pet and ongoing medical affecting her ego integrity. (1) Adjustment disorder: she declines a trial of Cymbalta She was referred to [facility] for therapy Risk Factors Assessment Do You Have Access To A Gun?: No Psych History Identifying Data 81 yo female lives with her at the [facility]. Admit 12/20 for CP. consult is by Dr. Cevallos for depression and anxiety. Chief Complaint "so much has happened I think talking about it would be better than a pill". History of Present Illness as per liaison on 12/20/21: Met with patient for psychiatric consult. She reports recently she has had crying spells although she is usually strong and optimistic. PHQ9 totals 13 and states she has thoughts nearly every day that she would be better off , "I am at peace and know to count my blessings every day that I wake up." She states she has lived a great life, she was raised by a mother who saw her and oldest child slaughtered in concentration camps, continuing to live wondering daily about her and her sibling. Then they had to survive afterwards with nothing. 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 She lives in a wonderful place ([facility]) with her second (age 94) and notes her recent stressors have become overwhelming. She states she has constant pain after her shot for pain to treat her spinal stenosis failed, now she can't enjoy gardening as much as prior. She can't eat like previous as she needs a salt free, sugar free diet and the chef de cuisine [facility] told her they can't cook without those. She enjoys 45 minutes of swimming daily, and going for walks but is unable to lose any weight. And finally she is hard on herself over the choices her step sons have made in the past, and last month her choice to put her terrier down after sudden decline in health. She would like help with nutrition, "I need a list of what I can have, not books and guides" and wonders if any of her medicines could attribute to increased depression symptoms noting that usually she can handle anything life throws at her. She is willing for depression medication suggestions although feels she will not need them. Today the patient is feeling better overall, at bedside eating lunch. Clarifies again that she doesn't want to or end her life just that she does have health issues and thinks about end of life issues and would rather go in her sleep. Her PHQ-9=13 with 3 on #9 with scoring for appetite issues, little energy, hopelessness. She is agreeable to a therapy referral. Past Psychiatric History Previous Psych History: none Previous Psych Admissions: none Do You Have Access To A Gun?: No Describe Attempts in the Past: none Past Medication Trials: none Allergies Allergy/AdvReac Type Severity Reaction Status Date / Time hydrochlorothiazide Allergy Mild RASH Verified 12/20/21 16:12 nickel Allergy Mild ITCHING Verified 12/20/21 16:12 AND REDNESS TO SKIN Penicillins Allergy Mild YEAST Verified 12/20/21 16:12 INFECTION insect venom Allergy swelling Verified 12/20/21 16:13 atorvastatin AdvReac Intermediate Unknown Verified 12/20/21 16:12 Home Medications Medication Instructions Recorded Confirmed Type levothyroxine 125 mcg tablet 125 mcg PO QAM 10/05/18 12/20/21 History losartan 50 mg tablet 50 mg PO QAM 10/05/18 12/20/21 History amlodipine 5 mg tablet (Norvasc) 5 mg PO QAM 09/20/20 12/20/21 History bisacodyl 5 mg tablet,delayed 10 mg PO HS 09/20/20 12/20/21 History release (Dulcolax (bisacodyl)) acetaminophen 650 mg 650 mg PO Q8H PRN 05/16/21 12/20/21 History tablet,extended release (Tylenol Arthritis Pain) gabapentin 300 mg capsule 300 mg PO TID cap 05/16/21 12/20/21 History nitroglycerin 0.4 mg sublingual 0.4 mg SUBLINGUAL Q5M PRN #25 tab 05/16/21 12/20/21 Rx tablet metoprolol succinate 50 mg 50 mg PO QAM #90 tab 07/24/21 12/20/21 Rx tablet,extended release 24 hr aspirin 81 mg tablet,delayed 81 mg PO DAILY #90 tab 11/21/21 12/20/21 Rx release (Adult Low Dose Aspirin) metformin 500 mg tablet 500 mg PO BID 11/21/21 12/20/21 History furosemide 20 mg tablet 20 - 40 mg PO DAILY 12/20/21 12/20/21 History pantoprazole 40 mg tablet,delayed See Rx Instructions .ROUTE 12/21/21 Rx release .COMPLEX #56 tab Family History denied Substance Abuse History denied Personal History Childhood: [place] Employment Status: Retired (principal) Marital Status: (second ) Beliefs That Will Affect Care: None Psychological Trauma History Comment: denied but "hard" Patient History Medical History Arterial disease Back problem Emphysema lung GERD (gastroesophageal reflux disease) Hiatal hernia History of DVT (deep vein thrombosis) RLE -- 11/2020. History of tachycardia HTN (hypertension) Hypothyroidism Lumbar radiculopathy Lumbar stenosis with neurogenic claudication Non-STEMI (non-ST elevated myocardial infarction) 05/14/2020--had heart cath with 1 stent placement--on plavix daily--follows with Dr. Clarke Surgical History H/O foot surgery RT History of appendectomy History of cardiac cath 05/14/2020 @ [facility] with 1 stent placed History of colonoscopy History of esophagogastroduodenoscopy (EGD) Hx of Achilles tendon repair LEFT S/P epidural steroid injection (~05/11/20) S/P right coronary artery (RCA) stent placement (05/14/20) Family History Other No family history of adverse response to anesthesia No pertinent family history Social History Smoking Status: Former smoker Tobacco Type: Cigarettes Second Hand Exposure: No; Hx Alcohol Use: Yes Alcohol type: hard liquor Hx Substance Use: No Preferred Language: Tamazight Communication Ability: Effective Willow Worker Required: No Beliefs That Will Affect Care: None Current Living Situation: Personal Care Facility Current Living Situation Comment: independent living at [facility] current occupational status: retired Feels Safe at Home: Yes Assistive Devices: Denture - Upper and Denture - Lower Physical Exam Psychiatric: Orientation: alert and oriented x 3 Apperance: appropriately dressed and appropriately groomed Eye Contact: good eye contact Motor Behavior: no abnormal motor movements Speech: normal rate/rhythm/volume of speech Affect: no depressed affect Mood: + depressed mood Thought Process: goal directed thought process Thought Content: reality based without delusions Suicidal Thoughts: denies suicidal thoughts Homicidal Thoughts: denies homicidal thoughts Hallucinations: no auditory hallucinations and no visual hallucinations Cognition: attention grossly intact and language grossly intact Estimated Intelligence: consistent with education level Insight: + fair insight Vital Signs (Past 24 Hours): Last Vital Signs Temp 37.2 C 12/21/21 13:47 Pulse 70 12/21/21 13:47 Resp 14 12/21/21 13:47 BP 162/82 H 12/21/21 13:47 Pulse Ox 93 12/21/21 13:47 Review of Systems All systems reviewed & are unremarkable except as noted in HPI & below Results & Data (PSY) Laboratory Results Labs 12/20/21 12/20/21 12/20/21 12:24 12:24 12:24 WBC 8.20 RBC 5.00 Hgb 14.6 Hct 43.6 MCV 87.2 MCH 29.2 MCHC 33.5 RDW Std Deviation 46.2 RDW Coeff of Madelin 14.6 H Plt Count 280 MPV 10.9 Immature Gran % (Auto) 0.6 Neut % (Auto) 74.0 Lymph % (Auto) 17.4 Lea % (Auto) 6.0 Eos % (Auto) 1.5 Baso % (Auto) 0.5 Neut # (Auto) 6.07 Lymph # (Auto) 1.43 Lea # (Auto) 0.49 Eos # (Auto) 0.12 Baso # (Auto) 0.04 Immature Gran # (Auto) 0.05 H PT 10.3 INR 1.0 APTT 23.6 PTT Ratio 0.9 D-Dimer Sodium 139 Potassium 3.7 Chloride 104 Carbon Dioxide 27 Anion Gap 8 BUN 19 Creatinine 0.99 Est Cr Clr Drug Dosing 53.3 Est GFR ( Amer) 62.4 Est GFR (Non-Af Amer) 53.8 BUN/Creatinine Ratio 19.2 Glucose 138 H POC Glucose Estimat Average Glucose Hemoglobin A1c Calcium 9.6 Magnesium Total Bilirubin 0.7 AST 22 ALT 31 Alkaline Phosphatase 93 Troponin I High Sens 7.3 Total Protein 7.5 Albumin 4.4 Globulin 3.1 Albumin/Globulin Ratio 1.4 TSH Free T4 SARS-CoV-2, RNA, NAAT 12/20/21 12/20/21 12/20/21 12:24 14:57 15:47 WBC RBC Hgb Hct MCV MCH MCHC RDW Std Deviation RDW Coeff of Madelin Plt Count MPV Immature Gran % (Auto) Neut % (Auto) Lymph % (Auto) Lea % (Auto) Eos % (Auto) Baso % (Auto) Neut # (Auto) Lymph # (Auto) Lea # (Auto) Eos # (Auto) Baso # (Auto) Immature Gran # (Auto) PT INR APTT PTT Ratio D-Dimer 760 H* Sodium Potassium Chloride Carbon Dioxide Anion Gap BUN Creatinine Est Cr Clr Drug Dosing Est GFR ( Amer) Est GFR (Non-Af Amer) BUN/Creatinine Ratio Glucose POC Glucose Estimat Average Glucose Hemoglobin A1c Calcium Magnesium 1.9 Total Bilirubin AST ALT Alkaline Phosphatase Troponin I High Sens 6.6 Total Protein Albumin Globulin Albumin/Globulin Ratio TSH Free T4 SARS-CoV-2, RNA, NAAT NEGATIVE 12/20/21 12/21/21 12/21/21 21:13 06:43 06:43 WBC 7.34 RBC 4.93 Hgb 14.4 Hct 44.5 MCV 90.3 MCH 29.2 MCHC 32.4 RDW Std Deviation 47.6 H RDW Coeff of Madelin 14.5 Plt Count 288 MPV 10.9 Immature Gran % (Auto) 0.4 Neut % (Auto) 66.1 Lymph % (Auto) 22.1 Lea % (Auto) 8.4 Eos % (Auto) 2.2 Baso % (Auto) 0.8 Neut # (Auto) 4.85 Lymph # (Auto) 1.62 Lea # (Auto) 0.62 Eos # (Auto) 0.16 Baso # (Auto) 0.06 Immature Gran # (Auto) 0.03 H PT INR APTT PTT Ratio D-Dimer Sodium Potassium Chloride Carbon Dioxide Anion Gap BUN Creatinine Est Cr Clr Drug Dosing Est GFR ( Amer) Est GFR (Non-Af Amer) BUN/Creatinine Ratio Glucose POC Glucose 181 H Estimat Average Glucose Hemoglobin A1c Calcium Magnesium Total Bilirubin AST ALT Alkaline Phosphatase Troponin I High Sens Total Protein Albumin Globulin Albumin/Globulin Ratio TSH 4.894 H Free T4 0.92 SARS-CoV-2, RNA, NAAT 12/21/21 12/21/21 12/21/21 06:43 06:43 07:45 WBC RBC Hgb Hct MCV MCH MCHC RDW Std Deviation RDW Coeff of Madelin Plt Count MPV Immature Gran % (Auto) Neut % (Auto) Lymph % (Auto) Lea % (Auto) Eos % (Auto) Baso % (Auto) Neut # (Auto) Lymph # (Auto) Lea # (Auto) Eos # (Auto) Baso # (Auto) Immature Gran # (Auto) PT INR APTT PTT Ratio D-Dimer Sodium 139 Potassium 3.8 Chloride 104 Carbon Dioxide 29 Anion Gap 6 BUN 17 Creatinine 0.97 Est Cr Clr Drug Dosing 54.0 Est GFR ( Amer) 63.9 Est GFR (Non-Af Amer) 55.2 BUN/Creatinine Ratio 17.5 Glucose 160 H POC Glucose 154 H Estimat Average Glucose 160 Hemoglobin A1c 7.2 H Calcium 9.3 Magnesium 2.1 Total Bilirubin AST ALT Alkaline Phosphatase Troponin I High Sens Total Protein Albumin Globulin Albumin/Globulin Ratio TSH Free T4 SARS-CoV-2, RNA, NAAT 12/21/21 11:54 WBC RBC Hgb Hct MCV MCH MCHC RDW Std Deviation RDW Coeff of Madelin Plt Count MPV Immature Gran % (Auto) Neut % (Auto) Lymph % (Auto) Lea % (Auto) Eos % (Auto) Baso % (Auto) Neut # (Auto) Lymph # (Auto) Lea # (Auto) Eos # (Auto) Baso # (Auto) Immature Gran # (Auto) PT INR APTT PTT Ratio D-Dimer Sodium Potassium Chloride Carbon Dioxide Anion Gap BUN Creatinine Est Cr Clr Drug Dosing Est GFR ( Amer) Est GFR (Non-Af Amer) BUN/Creatinine Ratio Glucose POC Glucose 120 H Estimat Average Glucose Hemoglobin A1c Calcium Magnesium Total Bilirubin AST ALT Alkaline Phosphatase Troponin I High Sens Total Protein Albumin Globulin Albumin/Globulin Ratio TSH Free T4 SARS-CoV-2, RNA, NAAT Coding Level of Care Code 177[address] [facility] Intl Hosp Care Lvl 2 Diagnoses Adjustment disorder F43.20
[2021-12-21] MEDS ORDERED: GABAPENTIN 300 MG CAP PO SCH (21:00)
--- NOTE | 2021-12-21 22:23 | Electrocardiogram Report ---
Test Reason : Blood Pressure : / mmHG Vent. Rate : 067 BPM Atrial Rate : 067 BPM P-R Int : 138 ms QRS Dur : 086 ms QT Int : 406 ms P-R-T Axes : 020 014 133 degrees QTc Int : 429 ms Normal sinus rhythm Abnormal ECG When compared with ECG of 02-NOV-2020 05:41, Inverted T waves have replaced nonspecific T wave abnormality in Anterior leads Confirmed by Kash Cadet ([id number]) on 12/21/2021 10:23:21 PM Referred By: Confirmed By:Kash Cadet
--- NOTE | 2021-12-22 05:58 | Electrocardiogram Report ---
Test Reason : Blood Pressure : / mmHG Vent. Rate : 067 BPM Atrial Rate : 067 BPM P-R Int : 154 ms QRS Dur : 088 ms QT Int : 410 ms P-R-T Axes : 066 059 117 degrees QTc Int : 433 ms Normal sinus rhythm Abnormal ECG When compared with ECG of 20-DEC-2021 12:14, No significant change was found Confirmed by Kash Cadet ([id number]) on 12/22/2021 5:57:50 AM Referred By: Altaf Cevallos Confirmed By:Kash Cadet
[2021-12-22] MEDS ORDERED: GABAPENTIN 600 MG TAB PO SCH (09:00)
== END 2021-12-21 14:32 | disposition home or self-care (01) | DRG 392 ==
LOC: ED 11:55 → SUATTDRO 15:32 → INTOOBSV 15:32 → 2N 15:32

== ENCOUNTER 2025-03-02 06:27 | Inpatient (IN) ==
--- NOTE | 2025-02-25 10:47 | Anesthesiology Consultation ---
Date of Service February 25, 2025 Assessment & Plan (1) Encounter for pre-operative examination: Chart Review Chart Review: Acceptable Risk for Surgery (pending repeat T&S day prior to surgery ) and Patient NOT seen in Pre Admission Testing - Awaiting repeat T&S per Blood Bank recommendations due to positive antibody- patient will be coming to the [facility] to have T&S done in the AM of 03/01/25 - Check BSG AM DOS - Patient informed by nursing to stop Mounjaro 7 days prior to surgery. Last dose of Mounjaro scheduled 02/21/25. Will be off Mounjaro x 9 days prior to DOS on 03/02/25 -Infectious Disease screening: Per PAT nursing assessment on 02/24/25. No known infectious disease contacts in past 10 days or current infectious disease symptoms. No recent travel outside the country. Cardiology office visit 08/25/24= ..."doing well currently with no evidence of ongoing myocardial ischemia, dysrhythmia, or congestive heart failure... appears euvolemic on exam... Given her extensive vascular disease and diabetes, it would seem she should be on lipid-lowering therapy. However she is unable to tolerate statins and I doubt she would be eligible for a PCSK9 injectable given her LDL of 53. Most recent carotid ultrasound did not show significant stenosis (prior studies had shown borderline left stenosis)... " D&C, hysteroscopy 05/06/24= Done under GA with LMA #4. Dentition as preop, easy insertion History Surgery Operation Date: 03/02/25 10:20 Proposed Procedures p Left Carotid Endarterectomy - Tom Simpson MD Height/Weight Height: 5 ft 8 in Weight: 83.6 kg Allergies Allergy/AdvReac Type Severity Reaction Status Date / Time atorvastatin Allergy Intermediate Rash Verified 02/24/25 13:56 clopidogrel [From Plavix] Allergy Mild Rash Verified 02/24/25 13:56 hydrochlorothiazide Allergy Mild RASH Verified 02/24/25 13:56 insect venom Allergy Mild swelling Verified 02/24/25 13:56 nickel Allergy Mild ITCHING Verified 02/24/25 13:56 AND REDNESS TO SKIN Penicillins Allergy Mild YEAST Verified 02/24/25 13:56 INFECTION Medications Home Medications Medication Instructions Recorded Confirmed Last Taken losartan 50 mg tablet 100 mg PO QAM 10/05/18 02/24/25 05/05/24 06:00 amlodipine 5 mg tablet (Norvasc) 10 mg PO QAM 09/20/20 02/24/25 05/06/24 04:00 acetaminophen 650 mg 650 mg PO Q8H PRN pain 05/16/21 02/24/25 05/06/24 04:00 tablet,extended release (Tylenol Arthritis Pain) metformin 500 mg tablet 500 mg PO QAM 11/21/21 02/24/25 05/05/24 06:00 nitroglycerin 0.4 mg sublingual 0.4 mg sublingual Q5M PRN chest 05/21/2302/15 0 Unknown tablet pain #25 tabs aspirin 81 mg tablet,delayed 81 mg PO QAM 05/04/24 02/24/25 05/05/24 06:00 release (Adult Low Dose Aspirin) cyanocobalamin (vitamin B-12) 50 0 mcg PO DAILY 05/06/24 02/24/25 05/05/24 06:00 mcg tablet (Vitamin B-12) metoprolol succinate 25 mg 25 mg PO DAILY #90 tabs 08/25/24 02/24/25 Unknown tablet,extended release 24 hr cyclobenzaprine 5 mg tablet 5 mg PO BID PRN Muscle Spasm 02/02/25 02/24/25 Unknown meloxicam 7.5 mg tablet 7.5 mg PO DAILY 02/02/25 02/24/25 Unknown nystatin-triamcinolone 100,000 0 applic topical BID 02/02/25 02/24/25 Unknown unit/g-0.1 % topical cream pantoprazole 40 mg tablet,delayed 40 mg PO QAM 02/02/25 02/24/25 Unknown release furosemide 20 mg tablet 20 mg PO QAM 02/03/25 02/24/25 Unknown gabapentin 300 mg capsule 300 mg PO DAILY 02/03/25 02/24/25 Unknown levothyroxine 137 mcg tablet 137 mcg PO DAILYBB 02/03/25 02/24/25 Unknown tirzepatide 10 mg/0.5 mL 10 mg subcut WK 02/03/25 02/24/25 Unknown subcutaneous pen injector (Mitch) Past Medical History Medical History Arthritis Back problem lumbar stenosis with radiculopathy Carotid artery stenosis per Neck CTA 02/02/25: critical stenosis proximal LICA, <50% stenosis GABRIEL CKD stage 3a, GFR 45-59 ml/min Coronary artery disease NSTEMI s/p 1 RCA stent 2019;'nonocclusive remaining disease' (per Cardio note 05/04/24) Diabetes mellitus, type 2 Emphysema lung GERD (gastroesophageal reflux disease) History of DVT (deep vein thrombosis) RLE -- 11/2020. History of tachycardia reason for metoprolol; adjusted from AM to PM dosing 05/2023 for nocturnal palpitations; sx improved (per note, 'etiology of palpiations uncertain; possibly paroxysmal SVT or pAfib) Hyperlipidemia Hypertension Hypothyroidism Non-STEMI (non-ST elevated myocardial infarction) 05/14/2020--had heart cath with 1 RCAstent placement--follows by Dr. Clarke PAD (peripheral artery disease) CT angiogram 2018 with moderate to severe stenosis of the superior mesenteric artery, right renal artery, right tibial artery (per 05/04/24 Cardio note); following with [facility] Renal artery stenosis moderate-severe proximal right MODESTO (per [id number]) Past Family History Family History Other No family history of adverse response to anesthesia No pertinent family history Past Surgical History Surgical History H/O foot surgery right>repaired broken toe History of appendectomy History of cardiac cath 05/14/2020 @ [facility] with 1 stent placed History of cataract surgery right/left History of colonoscopy History of dilatation and curettage History of esophagogastroduodenoscopy (EGD) History of tonsillectomy Hx of Achilles tendon repair left S/P epidural steroid injection (~05/11/20) Vocal cord polyp removed Social History Smoking Status: Former smoker tobacco type: cigarettes Do You Dip or Chew Tobacco: No Smoking End Date: quit 2017 Hx Alcohol Use: No Alcohol type: hard liquor alcohol intake frequency: holidays/special occasions only Hx Substance Use: No substance use type: does not use Lab Results Anesthesia Preop Results Results Anesthesia Widget: WBC 12.73 K/ul (4.8-10.8) H 02/09/25 Hgb 14.8 g/dl (12.0-16.0) 02/09/25 Hct 43.9 % (37.0-47.0) 02/09/25 Plt 314 K/uL (130-400) 02/09/25 Na 138 mmol/L (136-145) 02/09/25 K 3.8 mmol/L (3.5-5.1) 02/09/25 Cl 105 mmol/L (98-107) 02/09/25 CO2 25 mmol/L (21-32) 02/09/25 BUN 29 mg/dl (6-23) H 02/09/25 Creat 1.08 mg/dl (0.6-1.2) 02/09/25 Glucose Level 101 mg/dl (70-99(Fasting)) H 02/09/25 Urine Color Yellow 02/03/25 Urine Appearance Clear (Clear) 02/03/25 Urine pH 5.5 (4.5-7.5) 02/03/25 Urine Specific [place] 1.025 (1.000-1.030) 02/03/25 Urine Protein Trace (Negative) H 02/03/25 Urine Glucose (UA) Negative (Negative) 02/03/25 Urine Ketones Negative (Negative) 02/03/25 Urine Blood Negative (Negative) 02/03/25 Urine Nitrite Negative (Negative) 02/03/25 Urine Bilirubin Negative (Negative) 02/03/25 Urine Urobilinogen Negative (Negative) 02/03/25 Urine Leukocyte Esterase Trace (Negative) H 02/03/25 Urine WBC (Auto) 6-10 /hpf (0-5) H 02/03/25 Urine RBC (Auto) 0-2 /hpf (0-2) 02/03/25 Urine Hyaline Casts (Auto) 3-5 /lpf (0-2) H 02/03/25 Urine Epithelial Cells (Auto) 0-2 /hpf (0-2) 02/03/25 Urine Bacteria (Auto) None Seen (None Seen) 02/03/25 Blood Type A Positive 02/09/25 Antibody Screen POSITIVE A 02/09/25 Testing Laboratory Results Spoke with Blood Bank re: antibodies with T&S - BB recommends T&S day prior to surgery if possible Electrocardiogram Date: 02/09/25 Poor data quality NSR at 71bpm ST and T wave abnormality, consider anterior ischemia. When compared to EKG from February 02, 2025- ST elevation now present in inferior leads, ST decpression in lateral leads, T wave inversion more evident in ante rior leads per cardio (RCA stent placed 2019, negative stress test 2020, ECHO 2021 has no RWMA; troponin negative 02/02/25 when in ED for HTN, denied chest pain at most recent evaluation 02/03/25- discussed with Dr. Martin- patient can proceed as scheduled; will leave to anesthesiologist DOS if repeat EKG needed) Chest X-Ray Date: 02/09/25 Findings: + NAD Echocardiogram Date: 12/21/21 EF: >70% normal LV size with hyperdynamic systolic function. no RWMA. Severe concentric LVH. No significant valve disease. Similar findings to 11/01/20 study. Stress Test Date: 11/02/20 Type: DSE Findings: + WNL Normal DSE without evidence of inducible ischemia. Cardiac Catheterization Date: 05/14/20 1. Severe single-vessel coronary artery disease -80% earlymid, 99% acute latemid RCA stenosis 2. Mild to moderate nonculprit coronary artery disease 30% ostial LAD. 40% proximal D1 50% ostial high OM1 3. Normal intracardiac filling pressure 4. Successful PCI of sequential mid RCA lesions with long single drug-eluting s tent (3.0 x 38 mm Jesse; postdilated with 3.5 and 4.0 NC proximally). Other Testing Neck CTA 02/02/25= There is critical stenosis (greater than 95% with only trace flow) of the proximal left internal carotid artery. The mid to distal portions of the vessel are patent. Vascular surgical evaluation is advised. There is less than 50% stenosis at the origin of the right internal carotid artery. 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 There is reconstitution of the vessel distally below the skull base with thready flow. The right vertebral artery is dominant and widely patent. Emphysema. Head CTA 02/02/25= No large vessel occlusion. No intracranial aneurysm. Severe stenoses of the left cavernous carotid and basilar artery. Head CT 02/01/25= No acute findings.
--- NOTE | 2025-03-01 13:45 | History & Physical Report ---
Date of Service March 01, 2025 History of Present Illness Primary Care Provider: Angelica Rivera, DO We had the pleasure of evaluating Ms. Vick today at our vascular surgery clinic. As you know, she is an 84 year old female with history of HTN, hypothyroidism, GERD, CKD 3a, lumbar stenosis/DDD, CAD s/p right coronary artery stent placement (2019), emphysema, DVT, type II DM who presents to our office for evaluation of her carotid arteries. Patient was in her usual state of health undergoing a spinal injection when they found her blood pressure was elevated in the office. At that time, she stated she had a severe headache and felt like her head was bursting open. She also gets blurry vision when she gets these episodes. She was sent to the ED for further evaluation. In the ED, she was found to have hypertensive emergency and was treated for it. However, her workup also included a CTA neck that reveled greater than 95% stenosis of the proximal left internal carotid artery. The mid to distal portion of the vessels are patent. The right ICA has <50% stenosis. 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 She is on a baby aspirin. She does get significant rashes throughout her body with plavix and statin. She is also allergic to nickel. She denies any history of TIA/stroke, specifically denies any amaurosis fugax, facial droop, aphasia, unilateral weakness/numbness of upper or lower extremities. She does state that she gets tingling of her fingers and toes, specially in her fingers after she gets injections for her spine stenosis. She states she has no rest pain. She ambulates with a walker and is mostly limited by spinal pain, this improves when she leans over. Her main complaint today is constant headaches. However, she does not feel that they are severe at this time and has close follow up regarding his blood pressure medications. Past medical history: HTN, hypothyroidism, GERD, CKD 3a, lumbar stenosis/DDD, CAD s/p right coronary artery stent placement (2019), emphysema, DVT, type II DM, trigger finger (middle finger bilaterally) Past surgical history: EGD, tonsillectomy, cataract surgery, D+C, EGD, vocal cord polyp removal, R foot surgery (unspecified), L Achilles tendon repair, colonoscopy, appendectomy, cardiac cath with stent placement (2019) Family history: No history of adverse reactions to anesthesia. Mother had a severe, debilitating stroke 86 years old. Rest noncontributory. Medications: losartan, amlodipine, metformin, aspirin, cyclobenzaprine, pantoprazole, furosemide, gabapentin, levothyroxine, Mounjaro Social history: , lives with at [facility]. Prior smoker since 15 years old of <1PPD, quit 2018. Mother was a heavy smoker and patient was exposed to significant second hand smoking her entire life growing up. Allergies: Plavix (rash), statin (rash), nickel (rash), penicillins Imaging: CTA neck with evidence of critical stenosis greater than 95% of the proximal L ICA. The mid to distal portion of the vessels are patent. There is <50% stenosis of the R ICA. 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 Physical Exam: General- NAD Cardiovascular- HR 78. BP 142-96 R, 146/90 L Pulmonary- No increased work of breathing on RA, Sat 97% GI-Abdomen soft, nontender Ext-Warm, well perfused BUE and BLE. Baseline numbness of fingers and toes in BUE and BLE, symmetric. 5/5 motor strength in BUE and BLE. No wounds in the lower extremities. Palpable radial and DP pulses bilaterally. Neuro- AAOx3, cooperative with exam. Follows conversation appropriately. No aphasia. No facial droop. Extremities as above. CN II-XII grossly intact. Assessment/Plan: 1. Asymptomatic, high grade left internal carotid artery stenosis Ms. Vick is a very pleasant 84 year old female who underwent a thorough workup for hypertensive emergency. At that time, she was found to have asymptomatic, high grade stenosis of her left internal carotid artery. She was treated for the hypertension and was referred to us for further evaluation. Patient denies any history of TIA/stroke. On exam today, she is completely asymptomatic. Her CTA does show critical stenosis of greater than 95% of the proximal L ICA. We discussed the symptoms of TIA/stroke, including but not exclusively having word finding difficulty/aphasia, facial droop, sudden onset unilateral vision changes, unilateral weakness/numbness of one side of the body. We also discussed that given her high grade of stenosis, we recommend revascularization in addition to best medical management (control of HTN, cholesterol, RME21ce, continued smoking cessation). We discussed both revascularization with TCAR and open carotid endarterectomy. We discussed that given her allergy to nickel, plavix and statin she is not a good candidate for TCAR. We have offered her carotid endarterectomy. We discussed all risks and benefits and patient provided informed consent. In the meantime, she did state she has a vacation planned to [place] in the next week. We discussed that if she has any TIA/stroke like symptoms she should call 911 immediately. Patient stated understanding. Thank you for allowing us to participate in the care of this patient. Please do not hesitate to contact us with additional questions/concerns. I saw and evaluated the patient. Discussed with the resident and agree with the resident's findings and plan as documented in the resident's note. I have personally spent__50___ minutes performing [id number]-epgi and iwb-lawy-ch-face activities on this date of service. Activities Include: _x_ review of the medical record _x_ obtaining a history _x_ physical exam/evaluation __ review labs _x_ review radiology reports _x_ counseling/educating patient/family/caregiver __ discussion/referral to other healthcare professional _x_ documenting care in the medical record x__ independent interpretation of results c[facility] at [facility] __ communication of results to patient/family/caregiver __ coordination of care Signature Line Electronic Signature on File Davina Vásquez MD Author Signature Dt/Tm: 02/08/2025 03:28 PM Resident, Division of Vascular Surgery Electronically Reviewed/Signed by: Davina Vásquez MD Cosigner Signature Dt/Tm: 02/08/2025 04:18 PM Resident, Division of Vascular Surgery Electronically Reviewed/Signed by: MD Lashaun Garciaigner Signature Dt/Tm: 02/08/2025 04:28 PM Laboratory Engineer Mauro Saldana [facility] [place], [address] [place], [place] [address] RV Result Type: .Outpt Ltr Date of Service: February 08, 2025 15:17 EDT Authorization Status: Final Author or Import Date: Cindy Vásquez MD, Davina on February 08, 2025 15:20 EDT Verified By: MD Tatiana, Tom Chavez on February 08, 2025 16:28 EDT Encounter info: [id number], [place] [id number], Clinic, 02/08/2025 - 02/08/2025 Allergies Allergy/AdvReac Type Severity Reaction Status Date / Time atorvastatin Allergy Intermediate Rash Verified 02/24/25 13:56 clopidogrel [From Plavix] Allergy Mild Rash Verified 02/24/25 13:56 hydrochlorothiazide Allergy Mild RASH Verified 02/24/25 13:56 insect venom Allergy Mild swelling Verified 02/24/25 13:56 nickel Allergy Mild ITCHING Verified 02/24/25 13:56 AND REDNESS TO SKIN Penicillins Allergy Mild YEAST Verified 02/24/25 13:56 INFECTION Home Medications Medication Instructions Recorded Confirmed Type losartan 50 mg tablet 100 mg PO QAM 10/05/18 02/24/25 History amlodipine 5 mg tablet (Norvasc) 10 mg PO QAM 09/20/20 02/24/25 History acetaminophen 650 mg 650 mg PO Q8H PRN pain 05/16/21 02/24/25 History tablet,extended release (Tylenol Arthritis Pain) metformin 500 mg tablet 500 mg PO QAM 11/21/21 02/24/25 History nitroglycerin 0.4 mg sublingual 0.4 mg sublingual Q5M PRN chest 05/21/23 02/24/25 Rx tablet pain #25 tabs aspirin 81 mg tablet,delayed 81 mg PO QAM 05/04/24 02/24/25 History release (Adult Low Dose Aspirin) cyanocobalamin (vitamin B-12) 50 0 mcg PO DAILY 05/06/24 02/24/25 History mcg tablet (Vitamin B-12) metoprolol succinate 25 mg 25 mg PO DAILY #90 tabs 08/25/24 02/24/25 Rx tablet,extended release 24 hr cyclobenzaprine 5 mg tablet 5 mg PO BID PRN Muscle Spasm 02/02/25 02/24/25 History meloxicam 7.5 mg tablet 7.5 mg PO DAILY 02/02/25 02/24/25 History nystatin-triamcinolone 100,000 0 applic topical BID 02/02/25 02/24/25 History unit/g-0.1 % topical cream pantoprazole 40 mg tablet,delayed 40 mg PO QAM 02/02/25 02/24/25 History release furosemide 20 mg tablet 20 mg PO QAM 02/03/25 02/24/25 History gabapentin 300 mg capsule 300 mg PO DAILY 02/03/25 02/24/25 History levothyroxine 137 mcg tablet 137 mcg PO DAILYBB 02/03/25 02/24/25 History tirzepatide 10 mg/0.5 mL 10 mg subcut WK 02/03/25 02/24/25 History subcutaneous pen injector (Dezunjaniaro) Past Med/Surg History Problem List (Updated 02/25/25 @ 11:15 by Josefa Drake PA-C) Encounter for pre-operative examination Postmenopausal bleeding Palpitations Cervical spinal stenosis Cervical spondylosis Adjustment disorder Chronic pain of both shoulders Mood disorder Diabetes type 2, controlled Lumbar radiculopathy DVT (deep venous thrombosis) 2020 PAD (peripheral artery disease) Left hip pain Left shoulder pain Carotid artery stenosis Arterial disease CAD (coronary artery disease) Nonocclusive after RCA stent 05/14/2020. S/P right coronary artery (RCA) stent placement (05/14/20) Mesenteric artery stenosis Noted on 2019 CT angiogram Renal artery stenosis Moderate to severe proximal right renal artery stenosis 2018 Lumbar stenosis with neurogenic claudication GERD (gastroesophageal reflux disease) Hypothyroidism HTN (hypertension) (Acute) Medical History Arthritis Back problem lumbar stenosis with radiculopathy Carotid artery stenosis per Neck CTA 02/02/25: critical stenosis proximal LICA, <50% stenosis GABRIEL CKD stage 3a, GFR 45-59 ml/min Coronary artery disease NSTEMI s/p 1 RCA stent 2019;'nonocclusive remaining disease' (per Cardio note 05/04/24) Diabetes mellitus, type 2 Emphysema lung GERD (gastroesophageal reflux disease) History of DVT (deep vein thrombosis) RLE -- 11/2020. History of tachycardia reason for metoprolol; adjusted from AM to PM dosing 05/2023 for nocturnal palpitations; sx improved (per note, 'etiology of palpiations uncertain; possibly paroxysmal SVT or pAfib) Hyperlipidemia Hypertension Hypothyroidism Non-STEMI (non-ST elevated myocardial infarction) 05/14/2020--had heart cath with 1 RCAstent placement--follows by Dr. Clarke PAD (peripheral artery disease) CT angiogram 2018 with moderate to severe stenosis of the superior mesenteric artery, right renal artery, right tibial artery (per 05/04/24 Cardio note); following with [facility] Renal artery stenosis moderate-severe proximal right MODESTO (per [id number]) Surgical History H/O foot surgery right>repaired broken toe History of appendectomy History of cardiac cath 05/14/[address] [facility] with 1 stent placed History of cataract surgery right/left History of colonoscopy History of dilatation and curettage History of esophagogastroduodenoscopy (EGD) History of tonsillectomy Hx of Achilles tendon repair left S/P epidural steroid injection (~05/11/20) Vocal cord polyp removed Family History Other No family history of adverse response to anesthesia No pertinent family history Social History Smoking Status: Former smoker Tobacco Type: Cigarettes Smoking End Date: quit 2017; Second Hand Exposure: No; Do You Dip or Chew Tobacco: No; Tobacco Cessation Education Requested by Patient: No Hx Alcohol Use: No Hx Substance Use: No Preferred Language: Greenlandic Communication Ability: Effective Manager Communication Required: No Beliefs That Will Affect Care: None Current Living Situation: Spouse Current Living Situation Comment: independent living at [facility] current occupational status: retired Other Information That Helps Us Care for You: No Feels Safe at Home: Yes Safety Concerns: Feels Safe At This Time Assistive Devices: Glasses and Walker Assistive Devices Comment: permanent denture upper and lower
[2025-03-02] MEDS ORDERED: NALOXONE HCL 0.4 MG/1 ML VIAL/CARP IV PRN (06:57)
[2025-03-02] MEDS ORDERED: FLUMAZENIL 0.1 MG/1 ML 10 ML VIAL IV PRN (06:57)
[2025-03-02] MEDS ORDERED: ONDANSETRON INJ 2 MG/ML 2 ML VIAL IV PRN ×2 (06:57→12:44)
[2025-03-02] MEDS ORDERED: LABETALOL HCL IV 5 MG/ML 20ML IV PRN (06:57)
[2025-03-02] MEDS ORDERED: PROMETHAZINE HCL 6.25 MG in SODIUM CHLORIDE 0.9% 50 ML IV PRN (06:57)
[2025-03-02] MEDS ORDERED: ATROPINE SULFATE 0.1 MG/ML 10ML SYR IV PRN (06:57)
[2025-03-02] MEDS ORDERED: SUCCINYLCHOLINE 100MG/5ML SYR IV ONE (07:04)
[2025-03-02] MEDS ORDERED: CISATRACURIUM BESYLATE IV SOLN 2 MG/ML 10 ML VIAL IV ONE (07:04)
[2025-03-02] MEDS ORDERED: PROPOFOL IV EMULSION 10 MG/ML 20 ML VIAL IV ONE (07:05)
[2025-03-02] MEDS ORDERED: MIDAZOLAM HCL 1 MG/ML 2ML VIAL ONE (07:06)
[2025-03-02] MEDS ORDERED: ETOMIDATE 2 MG/ML 20 ML VIAL IV ONE (07:07)
[2025-03-02] MEDS ORDERED: GLYCOPYRROLATE 0.2 MG/ML VIAL ONE (07:10)
[2025-03-02] MEDS ORDERED: NEOSTIGMINE METHYLSULFATE 1 MG/ML 10ML VIAL ONE (07:10)
[2025-03-02] MEDS ORDERED: HEPARIN SOD (PORCINE) 1000 UNIT/ML ONE ×2 (07:12→09:59)
--- NOTE | 2025-03-02 07:26 | History & Physical Bridge Note ---
Date of Service March 02, 2025 History & Physical Bridge Note I have examined the patient, reviewed the History & Physical and in the interval since the performance of the History & Physical I have noted the following changes of clinical significance: no changes noted
[2025-03-02] MEDS: CLINDAMYCIN/D5W 900 MG/50 ML BAG IV SCH (07:44)
[2025-03-02] MEDS: LACTATED RINGER'S 1,000 ML IV SCH ×2 (07:44→13:23)
[2025-03-02] MEDS: ceFAZolin 330 MG/ML 1 GM VIAL ONE (09:21)
[2025-03-02] MEDS: SURGICEL ABSORB HEMOSTAT 2IN X 14IN TOP ONE (10:19)
--- NOTE | 2025-03-02 10:24 | Post Operative Brief Note ---
Immediate Post Op Note Date of Surgery March 02, 2025 Pre & Post Diagnosis Operation Date: 03/02/25 08:00 Pre-Op Diagnosis: Left Internal Carotid Artery Stenosis Post-Op Diagnosis: Left Internal Carotid Artery Stenosis I identified the patient and participated in the time-out.: Yes Procedure Operation Date: 03/02/25 08:00 Actual Procedures p Left Carotid Endarterectomy with bovine patch (Left) - Tom Simpson MD Surgeon Tom Simpson MD [employer] Professor MD Yari L.Minarchick,PAC Estimated Blood Loss 100 Findings Consistent with Post-Op Diagnosis Anesthesia Type General Complications none Disposition Accompanied Patient To Recovery: No Disposition: Recovery Room
[2025-03-02] MEDS: BUPIVACAINE/EPINEPHRINE 0.5% MPF 1:200,000 30 ML VIAL ONE (10:36)
[2025-03-02] MEDS: GELATIN SPONGE SZ 100 ONE (10:36)
[2025-03-02] MEDS: THROMBIN FOR SOLN 20000 UNIT KIT ONE (10:37)
[2025-03-02] MEDS: HEPARIN (PORCINE) 1000 UNIT/ML 10 ML (CATH LAB USE ONLY) ONE (10:40)
[2025-03-02] MEDS: LIDOCAINE 1% LOCAL 20 ML VIAL ONE (10:41)
--- NOTE | 2025-03-02 10:48 | Operative Report ---
Post Operative Report Pre & Post Diagnosis Operation Date: 03/02/25 08:00 Pre-Op Diagnosis: Left Internal Carotid Artery Stenosis Post-Op Diagnosis: Left Internal Carotid Artery Stenosis I identified the patient and participated in the time-out.: Yes Procedure Operation Date: 03/02/25 08:00 Actual Procedures p Left Carotid Endarterectomy with bovine patch (Left) - Tom Simpson MD Surgeon Tom Simpson MD Candlemaker DO Bess GreenbergMinarchick,PAC Estimated Blood Loss 100 Findings Consistent with Post-Op Diagnosis ICA and CCA with good back bleeding following shunt removal and unclamping. Pt w as moving all extremities on conclusion of the case. Fluids Per anesthesia. Specimens No specimen. Drains No drain Anesthesia Type General Complications None apparent. Indications Asymptomatic high grade carotid stenosis. Description of Procedure The patient was taken to the operating room and placed in supine position. After general anesthesia was accomplished the left-side of the neck was prepped and draped in a sterile manner. A longitudinal neck incision was then made cou rsing along the medial border of the sternocleidomastoid muscle. The incision was taken down through the platysmal layer. The facial vein was identified, ligated, and divided. The common carotid artery was then seen. It was dissected free down to the omohyoid muscle. The dissection was carried upward until the external carotid artery and superior thyroid artery was seen. The superior thyroid artery was looped with a 2-0 silk suture. The external carotid was looped with a red vessel loop. Next the dissection was carried up along the internal carotid artery. This was carried upward to beyond the area of narrowing. The hypoglossal nerve was seen and preserved. The patient was heparinized. After adequate heparinization was accomplished, the internal, external, and common carotid arteries were clamped. A longitudinal arteriotomy was started on the common carotid artery and extended upward along the internal carotid artery to a point beyond the area of narrowing. There was mixed calcified and soft plaque of the internal carotid artery origin causing approximately 85-90% narrowing. A Doppler shunt was then placed in the internal, followed by the common carotid artery and held in place with Camron clamps. There was good back bleeding seen from the internal carotid artery. The endarterectomy was then started in the appropriate plane on the common carotid artery. This was carried upward and the external carotid was everted and endarterectomized. The endarterectomy was then carried up along the internal carotid artery till a nice feathering breakoff point was accomplished beyond the end of the plaque. The endarterectomy was then carried down further on the common carotid artery. At end of the arteriotomy, the plaque was then transected. Under loop magnification, all loose debris and flaps were removed. There was no distal flap seen at the end of the endarterectomy site. The arteriotomy then closed using an bovine pericardial patch and a running 6-0 prol filipe suture. This was done in the usual vascular fashion. Prior to completing the closure, the doppler shunt was removed and the internal and common carotid arteries were reclamped. Backbleeding and forward bleeding was allowed to occur. The flow surface was irrigated with heparinized saline. The final few sutures were then placed and securely tied. Clamps were then removed off the external and common carotid arteries. The clamp was then removed the internal carotid artery. Good distal flow was seen. Adequate hemostasis was seen of the patch. The wound was inspected and adequate hemostasis was obtained. The wound was irrigated with antibiotic solution. It was then closed with a running 3-0 Vicryl suture for the platysmal layer and a 4-0 subcuticular Vicryl suture for the skin edges. 30cc of local was infiltrated into the soft tissue near the incision. Dermabond was used for dressing. The patient left the operating room in satisfactory condition and tolerated the procedure well. Dr. Simpson was present and scrubbed for the entire procedure. I attest to the content of the Intraoperative Record and any orders documented therein. Any exceptions are noted below.
[2025-03-02] MEDS ORDERED: PHARMACY GLYCEMIC MGMT CONSULT PRN (12:44)
[2025-03-02] MEDS ORDERED: PHENYLEPHRINE/NSS 25 MG/250 ML BAG IV PRN (12:44)
[2025-03-02] MEDS ORDERED: CYCLOBENZAPRINE HCL 5 MG TAB PO PRN (12:44)
[2025-03-02] MEDS ORDERED: NITROGLYCERIN SL 0.4 MG/TAB TAB SL PRN (12:44)
[2025-03-02] MEDS ORDERED: STAT IV Infusion **Titration per Protocol STA (12:44)
[2025-03-02] MEDS: HYDROmorphone INJ 1 MG/ML SYRINGE ONE (12:45)
--- NOTE | 2025-03-02 12:56 | Anesthesiology Progress Note ---
Date of Service March 02, 2025 Anesthesia Post Procedure Vital Signs Vital Signs: Temp Pulse Pulse Pulse Resp BP BP 03/02/25 12:53 03/02/25 12:48 36.3 C L 03/02/25 12:44 03/02/25 12:39 72 18 164/66 H 03/02/25 12:05 36.4 C L 60 12 03/02/25 11:55 66 12 03/02/25 11:45 63 12 03/02/25 11:35 62 10 L 03/02/25 11:25 61 12 03/02/25 11:15 68 16 03/02/25 11:05 36 C L 69 16 03/02/25 06:57 03/02/25 06:39 36.6 C 71 18 143/89 H BP BP Pulse Ox O2 Del Method O2 Flow Rate 03/02/25 12:53 Nasal Cannula 2 03/02/25 12:48 03/02/25 12:44 Nasal Cannula 3 03/02/25 12:39 94 03/02/25 12:05 172/55 H 92 Nasal Cannula 3 03/02/25 11:55 190/66 H 96 Nasal Cannula 3 03/02/25 11:45 170/58 H 96 Nasal Cannula 3 03/02/25 11:35 172/57 H 100 Oxymask 6 03/02/25 11:25 168/57 H 96 Oxymask 8 03/02/25 11:15 186/66 H 100 Oxymask 8 03/02/25 11:05 177/65 H 100 Oxymask 6 03/02/25 06:57 Room Air 03/02/25 06:39 149/84 H 93 Room Air Pain Intensity Left Neck: Pain Intensity: 4 Transfer of Care Handoff Completed per policy Notes Mental Status: alert / awake / arousable Patient Amnestic to Procedure: Yes Nausea / Vomiting: adequately controlled Pain: adequately controlled Airway Patency, RR, SpO2: stable & adequate BP & HR: stable & adequate Hydration State: stable & adequate Anesthetic Complications: no major complications apparent
[2025-03-02] MEDS ORDERED: ACETAMINOPHEN 325 MG TAB PO PRN (12:59)
[2025-03-02] MEDS: MoRPHine SULFATE 4 MG/ML 1 ML CARP\\VIAL IV PRN (13:22)
[2025-03-02] MEDS ORDERED: GLUCAGON FOR INJ 1 MG VIAL SQ PRN (13:30)
[2025-03-02] MEDS ORDERED: GLUCOSE 10 TAB/TUBE PO PRN (13:30)
[2025-03-02] MEDS ORDERED: GLUCOSE 40% GEL 15 GM TUBE PO PRN (13:30)
[2025-03-02] MEDS ORDERED: DEXTROSE 50% 50 ML SYRINGE IV PRN (13:30)
[2025-03-02] MEDS ORDERED: CARBOHYDRATES FOR HYPOGLYCEMIA PO PRN (13:30)
--- NOTE | 2025-03-02 14:32 | Critical Care Consultation ---
Date of Consultation March 02, 2025 Assessment & Plan (1) Cervical spinal stenosis: Reason Critically Ill: Postop day 1 from left carotid artery endarterectomy PLAN: Neuro: Postoperative pain - Morphine orders from vascular surgery Resp: No oxygen requirement CV: History hypertension - Continue metoprolol and Cozaar - Nicardipine ordered by vascular surgery not requiring during my evaluation History of coronary artery disease - Continue aspirin Fluids/Renal: Lactated Ringer's at 125 mL/h ID: Clindamycin per vascular surgery recommendations GI/Nutrition: Full liquid diet to start with dinner by vascular surgery - Does not appear to have difficulty swallowing during my evaluation Heme: DVT prophylaxis: SCDs Endocrine: ICU hyperglycemia protocol A1c ordered by vascular as a.m. lab - Previously elevated A1c known diabetes type 2 Vascular access: Peripheral IVs Code Status: Full code Disposition: ICU (2) Cervical spondylosis: (3) Chronic pain of both shoulders: (4) Mood disorder: (5) Left shoulder pain: (6) Carotid artery stenosis: (7) CAD (coronary artery disease): History of Present Illness Reason for Consultation: Left-sided carotid endarterectomy Attending Physician: Tom Simpson MD History of Present Illness Patient is an 84-year-old female with a past medical history of coronary artery disease, hypertension, status post PCI, peripheral arterial disease, hypothyroidism, diabetes type 2 and a mood disorder who underwent a open left carotid endarterectomy. In the postoperative period in the PACU patient was complaining of significant difficulty swallowing, trouble breathing, neck and shoulder pain, she was evaluated by Dr. Simpson at that time. During my evaluation she complains of the same, upon further questioning however the exact etiology and expectations she reported she felt she would only experience pain from her artery and would not be experiencing pain from the shoulder or any other areas. She reports she has a slipped disc and that is also aggravating her pain, she requested to be put to sleep as she does not want to deal with the current level of pain and would not have undergone the procedure had she known this was to be expected. During my interview bedside nursing staff was assisting, she was riding our comments to the patient's who was hard of hearing, the patient became irritated reporting she does not want any secrets and demanded to see what nursing staff was writing: She was given the complete notebook. Allergies Allergy/AdvReac Type Severity Reaction Status Date / Time atorvastatin Allergy Intermediate Rash Verified 03/02/25 06:51 clopidogrel [From Plavix] Allergy Mild Rash Verified 03/02/25 06:51 hydrochlorothiazide Allergy Mild RASH Verified 03/02/25 06:51 insect venom Allergy Mild swelling Verified 03/02/25 06:51 nickel Allergy Mild ITCHING Verified 03/02/25 06:51 AND REDNESS TO SKIN Penicillins Allergy Mild YEAST Verified 03/02/25 06:51 INFECTION Home Medications Medication Instructions Recorded Confirmed Type losartan 50 mg tablet 100 mg PO QAM 10/05/18 03/02/25 History amlodipine 5 mg tablet (Norvasc) 10 mg PO QAM 09/20/20 03/02/25 History acetaminophen 650 mg 650 mg PO Q8H PRN pain 05/16/21 03/02/25 History tablet,extended release (Tylenol Arthritis Pain) metformin 500 mg tablet 500 mg PO QAM 11/21/21 03/02/25 History nitroglycerin 0.4 mg sublingual 0.4 mg sublingual Q5M PRN chest 05/21/23 03/02/25 Rx tablet pain #25 tabs aspirin 81 mg tablet,delayed 81 mg PO QAM 05/04/24 03/02/25 History release (Adult Low Dose Aspirin) metoprolol succinate 25 mg 25 mg PO DAILY #90 tabs 08/25/24 03/02/25 Rx tablet,extended release 24 hr cyclobenzaprine 5 mg tablet 5 mg PO BID PRN Muscle Spasm 02/02/25 03/02/25 History meloxicam 7.5 mg tablet 7.5 mg PO DAILY 02/02/25 03/02/25 History nystatin-triamcinolone 100,000 0 applic topical BID 02/02/25 03/02/25 History unit/g-0.1 % topical cream pantoprazole 40 mg tablet,delayed 40 mg PO QAM 02/02/25 03/02/25 History release furosemide 20 mg tablet 20 mg PO QAM 02/03/25 03/02/25 History gabapentin 300 mg capsule 300 mg PO DAILY 02/03/25 03/02/25 History levothyroxine 137 mcg tablet 137 mcg PO DAILYBB 02/03/25 03/02/25 History tirzepatide 10 mg/0.5 mL 10 mg subcut WK 02/03/25 03/02/25 History subcutaneous pen injector (Dezunjaniaro) Patient History Medical History Emphysema lung CKD stage 3a, GFR 45-59 ml/min Carotid artery stenosis per Neck CTA 02/02/25: critical stenosis proximal LICA, <50% stenosis GABRIEL Coronary artery disease NSTEMI s/p 1 RCA stent 2019;'nonocclusive remaining disease' (per Cardio note 05/04/24) Renal artery stenosis moderate-severe proximal right [place] (per [id number]) PAD (peripheral artery disease) CT angiogram 2018 with moderate to severe stenosis of the superior mesenteric artery, right renal artery, right tibial artery (per 05/04/24 Cardio note); following with [facility] Arthritis GERD (gastroesophageal reflux disease) Hypothyroidism Diabetes mellitus, type 2 Hypertension Hyperlipidemia History of DVT (deep vein thrombosis) RLE -- 11/2020. Non-STEMI (non-ST elevated myocardial infarction) 05/14/2020--had heart cath with 1 RCAstent placement--follows by Dr. Clarke Back problem lumbar stenosis with radiculopathy History of tachycardia reason for metoprolol; adjusted from AM to PM dosing 05/2023 for nocturnal palpitations; sx improved (per note, 'etiology of palpiations uncertain; possibly paroxysmal SVT or pAfib) Surgical History History of esophagogastroduodenoscopy (EGD) Vocal cord polyp removed History of dilatation and curettage History of tonsillectomy History of cataract surgery right/left S/P epidural steroid injection (~05/11/20) History of cardiac cath 05/14/2020 @ [facility] with 1 stent placed H/O foot surgery right>repaired broken toe Hx of Achilles tendon repair left History of colonoscopy History of appendectomy Family History Other No family history of adverse response to anesthesia No pertinent family history Social History Smoking Status: Former smoker Tobacco Type: Cigarettes Smoking End Date: quit 2017; Second Hand Exposure: No; Do You Dip or Chew Tobacco: No; Tobacco Cessation Education Requested by Patient: No Hx Alcohol Use: No Hx Substance Use: No Preferred Language: Belgian Communication Ability: Effective Security Alarm Installer Required: No Beliefs That Will Affect Care: None Current Living Situation: Spouse [facility] current occupational status: retired Other Information That Helps Us Care for You: No Feels Safe at Home: Yes Safety Concerns: Feels Safe At This Time Assistive Devices: Glasses and Walker Assistive Devices Comment: permanent denture upper and lower Physical Exam Physical Exam: General: Alert. nontoxic. Skin: Warm, dry, Head: Atraumatic Ears, nose, mouth and throat: airway patent, patient appeared to have normal swallow Neck: No bruit, incision is clean dry and intact neck is soft and supple no evidence of expanding hematoma Cardiovascular: Normal peripheral perfusion Respiratory: no respiratory distress Gastrointestinal: Non distended Musculoskeletal: No deformity Results & Data Results & Data Vital Signs (Past 12 Hours) Vital Signs Temp Pulse Pulse Pulse Resp BP BP 03/02/25 12:53 03/02/25 12:48 36.3 C L 03/02/25 12:44 03/02/25 12:39 72 18 164/66 H 03/02/25 12:05 36.4 C L 60 12 03/02/25 11:55 66 12 03/02/25 11:45 63 12 03/02/25 11:35 62 10 L 03/02/25 11:25 61 12 03/02/25 11:15 68 16 03/02/25 11:05 36 C L 69 16 03/02/25 06:57 03/02/25 06:39 36.6 C 71 18 143/89 H BP BP Pulse Ox O2 Del Method O2 Flow Rate 03/02/25 12:53 Nasal Cannula 2 03/02/25 12:48 03/02/25 12:44 Nasal Cannula 3 03/02/25 12:39 94 03/02/25 12:05 172/55 H 92 Nasal Cannula 3 03/02/25 11:55 190/66 H 96 Nasal Cannula 3 03/02/25 11:45 170/58 H 96 Nasal Cannula 3 03/02/25 11:35 172/57 H 100 Oxymask 6 03/02/25 11:25 168/57 H 96 Oxymask 8 03/02/25 11:15 186/66 H 100 Oxymask 8 03/02/25 11:05 177/65 H 100 Oxymask 6 03/02/25 06:57 Room Air 03/02/25 06:39 149/84 H 93 Room Air Critical Care Results & Data Vital Signs (Past 12 Hours) Vital Signs Temp Pulse Pulse Pulse Resp BP BP 03/02/25 12:53 03/02/25 12:48 36.3 C L 03/02/25 12:44 03/02/25 12:39 72 18 164/66 H 03/02/25 12:05 36.4 C L 60 12 03/02/25 11:55 66 12 03/02/25 11:45 63 12 03/02/25 11:35 62 10 L 03/02/25 11:25 61 12 03/02/25 11:15 68 16 03/02/25 11:05 36 C L 69 16 03/02/25 06:57 03/02/25 06:39 36.6 C 71 18 143/89 H BP BP Pulse Ox O2 Del Method O2 Flow Rate 03/02/25 12:53 Nasal Cannula 2 03/02/25 12:48 03/02/25 12:44 Nasal Cannula 3 03/02/25 12:39 94 03/02/25 12:05 172/55 H 92 Nasal Cannula 3 03/02/25 11:55 190/66 H 96 Nasal Cannula 3 03/02/25 11:45 170/58 H 96 Nasal Cannula 3 03/02/25 11:35 172/57 H 100 Oxymask 6 03/02/25 11:25 168/57 H 96 Oxymask 8 03/02/25 11:15 186/66 H 100 Oxymask 8 03/02/25 11:05 177/65 H 100 Oxymask 6 03/02/25 06:57 Room Air 03/02/25 06:39 149/84 H 93 Room Air Lab & Micro Results (Past 24 Hours) No Data to Display No Data to Display No Data to Display I & O Totals 24 Hours 03/01/25 03/02/25 03/03/25 06:59 06:59 06:59 Intake Total 1050 / 1050 Output Total 50 / 50 Balance 1000 / 1000 Cumulative 02/09/25 10:18 thru 03/02/25 12:50 Intake Total 1050 Output Total 50 Balance 1000 RT Ventilator Mngmt (Last Documented) Ventilator Ordered Settings Respiratory Rate 18 03/02/25 12:39 Ventilator - PT Measurements Respiratory Rate 18 Coding Level of Care Code 35843 IN/OBS CONSULT LVL 4,60M Diagnoses Cervical spinal stenosis M48.02 Cervical spondylosis M47.812 Chronic pain of both shoulders M25.511; M25.512; G89.29 Mood disorder F39 Left shoulder pain M25.512 Bilateral carotid artery stenosis I65.23 Laterality: bilateral Coronary artery disease involving [place] coronary artery of [place] heart with angina pectoris I25.119 Coronary Disease-Associated Artery/Lesion type: [place] artery [place] vs. transplanted heart: [place] heart Associated angina: with unspecified form of angina (6) Carotid artery stenosis Laterality: bilateral Qualified Code(s): I65.23 - Occlusion and stenosis of bilateral carotid arteries (7) CAD (coronary artery disease) Coronary Disease-Associated Artery/Lesion type: [place] artery [place] vs. transplanted heart: [place] heart Associated angina: with unspecified form of angina Qualified Code(s): I25.119 - Atherosclerotic heart disease of [place] coronary artery with unspecified angina pectoris
--- NOTE | 2025-03-02 14:42 | Pharmacy Report ---
Pharmacy Glycemic Short Note 2 - Date of Service March 02, 2025 - Glycemic Short BSG Results (Last 24 hours): 03/02/25 03/02/25 06:55 11:13 POC Glucose 113 H 163 H OUTPATIENT ANTIDIABETIC REGIMEN: * metformin 500mg PO daily * Mounjaro 10mg SQ weekly HbA1c : 7.7% on 12/21/2021, updated value ordered for 03/03/25 ASSESSMENT: * Bessy is an 84 year old female who was admitted today for a left carotid endarterectomy (POD #0). Pharmacy has been consulted for glycemic management post op. * BSG preop was 113mg/dL and postop was 163mg/dL. Lantus 10 units SQ x 1 was ordered and a weight based bolus insulin regimen with a stress of 2 was started. PLAN FOR INPATIENT GLYCEMIC CONTROL: * Hold outpatient oral diabetes medications * Basal insulin * Lantus 10 units SQ x 1 * Bolus insulin * NovoLog per scale ACHS or Q6hrs while NPO * Goal Range: Low 110 mg/dL - High 140 mg/dL * Correction Factor: 30 mg/dL/unit * Nutritional / Prandial insulin per carb ratio of 1 unit per 10 grams CHO consumed
[2025-03-02] MEDS: INSULIN ASPART PER UNIT CHARGE SC SCH (15:01)
[2025-03-02] MEDS: CLINDAMYCIN/D5W 600 MG/50 ML BAG IV SCH (16:02)
[2025-03-02] MEDS: LANTUS PER UNIT CHARGE SC ONE (16:09)
[2025-03-02] MEDS: COUGH DROP (SUGAR FREE) LOZ 24 LOZ/1 BOX BUCCAL PRN (20:30)
[2025-03-03] MEDS: LEVOTHYROXINE SODIUM 137 MCG TABLET PO SCH (03:53)
[2025-03-03] MEDS: ASPIRIN 81 MG ECTAB PO SCH (07:59)
[2025-03-03] MEDS: FUROSEMIDE 20 MG TAB PO SCH (08:00)
[2025-03-03] MEDS: LOSARTAN POTASSIUM 50 MG TAB PO SCH (08:00)
[2025-03-03] MEDS: METOPROLOL SUCC 25MG EXT REL TAB PO SCH (08:00)
[2025-03-03] MEDS: MELOXICAM 7.5 MG TAB PO SCH (08:00)
[2025-03-03] MEDS: GABAPENTIN 300 MG CAP PO SCH (08:00)
[2025-03-03 08:08] LABS: Hemoglobin A1C 6.1 % (4.5-5.6)
--- NOTE | 2025-03-03 08:41 | Critical Care Progress Note ---
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: (20) Renal artery stenosis: (21) Lumbar stenosis with neurogenic claudication: (22) GERD (gastroesophageal reflux disease): (23) Hypothyroidism: (24) HTN (hypertension): Plan Neuro: Postoperative pain - Morphine and Oxycodone pRN Resp: Patient is on 2l o2 CV: History hypertension - Continue metoprolol and Cozaar -Metoprolol 5mg IV stat given as patient was tachycardic upto 103 and hypertensive upto SBP 190 - Nicardipine ordered by vascular surgery not requiring during my evaluation History of coronary artery disease - Continue aspirin Fluids/Renal: Lactated Ringer's at 125 mL/h ID: Clindamycin per vascular surgery recommendations GI/Nutrition: Full liquid diet Patient complaining of globus sensation after she had vocal cord procedure for polypectomy. Got overnight throat lozenge and it seems to help Heme: DVT prophylaxis: SCDs Endocrine: ICU hyperglycemia protocol HbA1c 6.1 - Previously elevated A1c known diabetes type 2 Vascular access: Peripheral IVs Code Status: Full code Admission and Anticipated Discharge Date Admission Date: March 02, 2025 Supervising Physician Co-Signing Physician Notes Dr. Hills was resident physician during care of patient. I separately evaluated patient for shine portions of the history and the exam. I was present during the critical portion of medical decision making, and I discussed the case with the resident. I generally agree with the findings and plan. Updated CODE STATUS as patient brought in POLST form and patient request. Can restart antihypertensives, given one-time dose of 5 mg metoprolol as patient is mildly tachycardic up to the 103 and hypertensive in the 190 systolic, morning meds have been administered at this time waiting for clinical effect. Note patient has recently had vocal cord procedure for polypectomy, she since surgery she is been complaining of globus sensation since surgery. Overnight she was given a throat lozenge which did improve the sensation. We will continue that. At this time critical care will sign off. Subjective Patient was seen this morning. Complaining of globus sensation in her throat which she has after her vocal cord procedure. She got Lozenge and it helped somewhat. No any overnight events. Resting comfortably on bed Review of Systems Constitutional: As per HPI Physical Exam Physical Exam: General: Alert. nontoxic. Skin: Warm, dry, Head: Atraumatic Ears, nose, mouth and throat: airway patent, patient appeared to have normal swallow Neck: No bruit, incision is clean dry and intact neck is soft and supple no evidence of expanding hematoma Cardiovascular: Normal peripheral perfusion Respiratory: no respiratory distress Gastrointestinal: Non distended Musculoskeletal: No deformity Results & Data Results & Data Vital Signs (Past 12 Hours) Vital Signs Temp Pulse Resp BP Pulse Ox O2 Del Method O2 Flow Rate 03/03/25 08:30 85 14 91 Nasal Cannula 2 03/03/25 07:12 85 16 91 03/03/25 06:01 84 15 147/70 H 92 Nasal Cannula 3 03/03/25 05:33 83 16 91 Nasal Cannula 3 03/03/25 05:00 86 16 92 Nasal Cannula 3 03/03/25 04:27 79 14 92 Nasal Cannula 3 03/03/25 04:00 37.1 C 93 H 18 177/83 H 96 Nasal Cannula 3 03/03/25 03:03 87 15 93 Nasal Cannula 3 03/03/25 02:33 93 H 19 94 Nasal Cannula 3 03/03/25 02:00 82 16 168/81 H 92 Nasal Cannula 3 03/03/25 01:30 93 H 20 94 Nasal Cannula 3 03/03/25 01:06 74 15 91 Nasal Cannula 3 03/03/25 00:00 37.2 C 86 19 160/69 H 93 Nasal Cannula 3 03/02/25 23:30 85 19 94 Nasal Cannula 2 03/02/25 23:05 87 19 94 Nasal Cannula 2 03/02/25 22:00 71 14 143/85 H 03/02/25 21:17 71 14 93 Nasal Cannula 2 Coding Level of Care Code 90651 SUB INP/OBS CARE 2/35MIN Diagnoses Encounter for pre-operative examination Z01.818 Postmenopausal bleeding N95.0 Palpitations R00.2 Cervical spinal stenosis M48.02 Cervical spondylosis M47.812 Adjustment disorder F43.20 Chronic pain of both shoulders M25.511; M25.512; G89.29 Mood disorder F39 Diabetes type 2, controlled E11.9 Lumbar radiculopathy M54.16 DVT (deep venous thrombosis) I82.409 PAD (peripheral artery disease) I73.9 Left hip pain M25.552 Left shoulder pain M25.512 Bilateral carotid artery stenosis I65.23 Laterality: bilateral Arterial disease I77.9 Coronary artery disease involving [place] coronary artery of [place] heart with angina pectoris I25.119 Coronary Disease-Associated Artery/Lesion type: [place] artery [place] vs. transplanted heart: [place] heart Associated angina: with unspecified form of angina S/P right coronary artery (RCA) stent placement Z95.5 Mesenteric artery stenosis K55.1 Renal artery stenosis I70.1 Lumbar stenosis with neurogenic claudication M48.062 Gastroesophageal reflux disease without esophagitis K21.9 Esophagitis presence: without esophagitis Hypothyroidism, unspecified type E03.9 Hypothyroidism type: unspecified Essential hypertension I10 Resident Activity Tracking Resident Involvement: Resident Care Provided Care Provided: Adult [facility] Medicine (15) Carotid artery stenosis Laterality: bilateral Qualified Code(s): I65.23 - Occlusion and stenosis of bilateral carotid arteries (17) CAD (coronary artery disease) Coronary Disease-Associated Artery/Lesion type: [place] artery [place] vs. transplanted heart: [place] heart Associated angina: with unspecified form of angina Qualified Code(s): I25.119 - Atherosclerotic heart disease of [place] coronary artery with unspecified angina pectoris (22) GERD (gastroesophageal reflux disease) Esophagitis presence: without esophagitis Qualified Code(s): K21.9 - Gastro- esophageal reflux disease without esophagitis (23) Hypothyroidism Hypothyroidism type: unspecified Qualified Code(s): E03.9 - Hypothyroidism, unspecified
[2025-03-03] MEDS ORDERED: METOPROLOL TARTRATE 1 MG/ML VIAL IV STA (09:49)
--- NOTE | 2025-03-03 09:51 | Billing Data ---
Date of Service March 03, 2025 Coding Level of Care Code 39649 SUB INP/OBS CARE
[2025-03-03] MEDS: METOPROLOL TARTRATE 1 MG/ML VIAL IV ONE (10:11)
--- NOTE | 2025-03-03 12:58 | Surgery Progress Note ---
Date of Service March 03, 2025 Assessment & Plan Admission and Anticipated Discharge Date Admission Date: March 02, 2025 Subjective Patient alert and awake. Complainng of soreness of throat when swallowing. Able to take food without choking. Denies neuro deficits. She has been hypertensive but at her baseline. Will d\c art line and transfer to floor. Physical Exam Constitutional: WD/WN, vitals as above Neck: trachea midline Respiratory: normal respiratory effort and + respiratory distress Cardiovascular: Rate/Rhythm: regular rate and regular rhythm Skin: + incision (dry and clean) Neurologic: CN's II-XI intact bilaterally and moves all extremities Psychiatric: A+Ox3, euthymic affect Results & Data Vital Signs (Past 12 Hours) Vital Signs Temp Pulse Pulse Resp BP Pulse Ox O2 Del Method 03/03/25 11:20 82 18 95 Nasal Cannula 03/03/25 10:26 77 177/68 H 03/03/25 10:11 91 H 189/73 H 03/03/25 09:00 85 14 90 03/03/25 08:30 85 14 91 Nasal Cannula 03/03/25 07:45 Nasal Cannula 03/03/25 07:12 85 16 91 03/03/25 06:01 84 15 147/70 H 92 Nasal Cannula 03/03/25 05:33 83 16 91 Nasal Cannula 03/03/25 05:00 86 16 92 Nasal Cannula 03/03/25 04:27 79 14 92 Nasal Cannula 03/03/25 04:00 37.1 C 93 H 18 177/83 H 96 Nasal Cannula 03/03/25 03:03 87 15 93 Nasal Cannula 03/03/25 02:33 93 H 19 94 Nasal Cannula 03/03/25 02:00 82 16 168/81 H 92 Nasal Cannula 03/03/25 01:30 93 H 20 94 Nasal Cannula 03/03/25 01:06 74 15 91 Nasal Cannula O2 Flow Rate 03/03/25 11:20 3 03/03/25 10:26 03/03/25 10:11 03/03/25 09:00 03/03/25 08:30 2 03/03/25 07:45 2 03/03/25 07:12 03/03/25 06:01 3 03/03/25 05:33 3 03/03/25 05:00 3 03/03/25 04:27 3 03/03/25 04:00 3 03/03/25 03:03 3 03/03/25 02:33 3 03/03/25 02:00 3 03/03/25 01:30 3 03/03/25 01:06 3
--- NOTE | 2025-03-04 12:17 | Pharmacy Report ---
Pharmacy Glycemic Short Note 2 - Date of Service March 04, 2025 - Glycemic Short BSG Results (Last 24 hours): 03/03/25 03/03/25 03/04/25 16:03 20:52 07:38 POC Glucose 129 H 118 H 116 H 03/04/25 11:10 POC Glucose 103 H OUTPATIENT ANTIDIABETIC REGIMEN: * metformin 500mg PO daily * Mounjaro 10mg SQ weekly HbA1c : 7.7% on 12/21/2021, updated value ordered for 03/03/25 ASSESSMENT: 03/04: * Minimal insulin requirements. BSGs at or below goal. Patient received a total of 2 units of Novolog yesterday. No basal insulin ordered for 03/03 or 03/04. This morning, BSG trended from 116 to 103 mg/dL after eating breakfast and receiving no insulin. Will remove carb coverage. 03/02: * Bessy is an 84 year old female who was admitted today for a left carotid endarterectomy (POD #0). Pharmacy has been consulted for glycemic management post op. * BSG preop was 113mg/dL and postop was 163mg/dL. Lantus 10 units SQ x 1 was ordered and a weight based bolus insulin regimen with a stress of 2 was started. PLAN FOR INPATIENT GLYCEMIC CONTROL: * Hold outpatient oral diabetes medications * Basal insulin * Continue to hold * Bolus insulin * NovoLog per scale ACHS or Q6hrs while NPO * Goal Range: Low 110 mg/dL - High 140 mg/dL * Correction Factor: 30 mg/dL/unit * Nutritional / Prandial insulin per carb ratio of 1 unit per ___ grams CHO consumed
--- NOTE | 2025-03-04 13:01 | Surgery Progress Note ---
Date of Service March 04, 2025 Assessment & Plan (1) Carotid artery stenosis: Plan: Patient is status post left carotid endarterectomy. She is doing well. She does have some generalized weakness. She would most likely be [facility] tomorrow. Admission and Anticipated Discharge Date Admission Date: March 02, 2025 Subjective Patient alert and awake. She claims to be feeling better today. She was visible on fluoroscopy. She does have some slight hoarseness but this improving. She has no difficulty swallowing. Physical Exam Constitutional: WD/WN, vitals as above Neck: trachea midline Respiratory: normal respiratory effort and + respiratory distress Cardiovascular: Rate/Rhythm: regular rate and regular rhythm Skin: + incision (dry and clean) Neurologic: CN's II-XI intact bilaterally and moves all extremities Psychiatric: A+Ox3, euthymic affect Results & Data Vital Signs (Past 12 Hours) Vital Signs Temp Pulse Resp BP BP Pulse Ox O2 Del Method 03/04/25 09:45 90 Room Air 03/04/25 08:25 Nasal Cannula 03/04/25 08:11 86 L Room Air 03/04/25 08:11 36.8 C 83 16 162/86 H 155/81 H 86 L Room Air O2 Flow Rate 03/04/25 09:45 03/04/25 08:25 3 03/04/25 08:11 03/04/25 08:11 (1) Carotid artery stenosis Laterality: bilateral Qualified Code(s): I65.23 - Occlusion and stenosis of bilateral carotid arteries
[2025-03-05 08:00] VITALS: TEMP 97.7
[2025-03-05 09:26] VITALS: BP 161/81; PULSE 86; RESP 18; O2SAT 95
--- NOTE | 2025-03-05 10:17 | Surgery Progress Note ---
Date of Service March 05, 2025 Assessment & Plan (1) Carotid artery stenosis: Plan: Patient is status post left carotid endarterectomy. She is doing well. She does have some generalized weakness. Pt ok for [facility]. Admission and Anticipated Discharge Date Admission Date: March 02, 2025 Subjective 84 yo f POD #3 after L CEA, seen in f/u today. Pt states feeling ok, just tired. Admits pain L neck incision, general weakness/fatigue. No other complaints. Review of Systems Review of Systems: All systems reviewed & are unremarkable except as noted in HPI & below Physical Exam Constitutional: WD/WN, vitals as above Neck: trachea midline Respiratory: normal respiratory effort and + respiratory distress Cardiovascular: Rate/Rhythm: regular rate and regular rhythm Skin: + incision (dry and clean) Neurologic: CN's II-XI intact bilaterally and moves all extremities Psychiatric: A+Ox3, euthymic affect Results & Data Vital Signs (Past 12 Hours) Vital Signs Temp Pulse Pulse Resp BP BP Pulse Ox 03/05/25 09:26 86 18 161/81 H 95 03/05/25 07:59 36.5 C 78 16 131/71 92 03/05/25 02:18 92 O2 Del Method 03/05/25 09:26 Room Air 03/05/25 07:59 Room Air 03/05/25 02:18 Room Air (1) Carotid artery stenosis Laterality: bilateral Qualified Code(s): I65.23 - Occlusion and stenosis of bilateral carotid arteries
== END 2025-03-05 12:58 | disposition home or self-care (01) | DRG 39 ==
LOC: ASU 06:27 → 1E 07:26 → 3W 03-03 15:17